=== PATIENT | male | born 1935 | race Caucasian/White ===

== ENCOUNTER 2016-10-02 12:14 | Observation (INO) ==
--- NOTE | 2016-10-02 12:18 | Emergency Department Note ---
Disposition Clinical Impression: Chest pain Disposition: Admitted As Inpatient Condition: Fair General Adult HPI - General Chief complaint: ED Chest Pain Stated complaint: Chest pain Time Seen by Provider: 10/02/16 12:18 - Related Data Home Medications Medication Instructions Recorded Confirmed Albuterol Neb [Proventil Neb] 2.5 mg IH Q4HR PRN 01/27/15 10/02/16 Carvedilol [Coreg] 3.125 mg PO BID 01/27/15 10/02/16 Tiotropium [place] [Spiriva] 18 mcg IH DAILY 01/27/15 10/02/16 Budesonide/Formoterol 160/4.5 2 puff IH BIDR 04/20/15 10/02/16 [Symbicort] Albuterol Sulfate [Albuterol 2 puff IH Q4H PRN 10/02/16 10/02/16 Inhaler] Atorvastatin [Lipitor] 40 mg PO HS 10/02/16 10/02/16 Magnesium Oxide [Magnesium] 500 mg PO DAILY 10/02/16 10/02/16 Tamsulosin [Flomax] 0.8 mg PO HS 10/02/16 10/02/16 Warfarin [Coumadin] 5 mg PO [id number] 10/02/16 10/02/16 Warfarin [Coumadin] 7.5 mg PO MALDONADO 10/02/16 10/02/16 Previous Rx's Medication Instructions Recorded Ranolazine [Ranexa] 500 mg PO BID #60 tab.er.12h 04/06/15 Allergies Allergy/AdvReac Type Severity Reaction Status Date / Time nitroglycerin Allergy Mild Hypotension Verified 09/26/15 13:16 aspirin [ASA] AdvReac Unknown Nose Bleed Verified 10/22/15 04:34 doxycycline AdvReac Redness of Verified 05/15/16 09:22 Skin Past Medical History - Past Medical History Medical history: Reports: arthritis, asthma, coronary artery disease, DVT, hyperlipidemia, myocardial infarction, TIA Surgical history: Reports: cholecystectomy, coronary bypass (CABG), orthopedic, other, pacemaker/AICD Psychiatric history: Reports: no psych history - Social History Smoking Status: Never smoker Smokeless Tobacco Status: No Alcohol use: Reports: none Drug use: Reports: none Course Vital Signs Temperature 98 F 10/02/16 12:15 Pulse Rate 79 10/02/16 12:15 Respiratory Rate 16 10/02/16 12:15 Blood Pressure 139/100 10/02/16 12:15 O2 Sat by Pulse Oximetry 94 10/02/16 12:15 Temperature 97.5 F L 10/03/16 07:23 Pulse Rate 63 10/03/16 07:23 Respiratory Rate 16 10/03/16 07:23 Blood Pressure 133/68 10/03/16 07:23 O2 Sat by Pulse Oximetry 96 10/03/16 07:23 Oxygen Delivery Oxygen Delivery Nasal Cannula Medical Decision Making - Lab Data Result diagrams: 10/03/16 00:39 10/03/16 00:39 Lab Results 10/02/16 10/02/16 10/02/16 Range/Units 12:25 12:25 12:25 WBC 6.2 (4.3-11.1) K/mcL RBC 4.58 (4.19-5.50) M/mcL Hgb 13.0 (12.9-16.9) g/dL Hct 40.7 (37.5-50.1) % MCV 88.9 (83.0-100.0) fL MCH 28.4 (28.0-33.3) pg MCHC 31.9 (31.6-35.5) g/dL RDW 13.4 (11.5-14.5) % Plt Count 184 (140-400) K/mcL MPV 9.0 L (9.4-12.4) fL Immature Gran % 0.2 (0-4) % Seg Neutrophils % 61.8 % Lymphocytes % 18.3 % Monocytes % 12.0 % Eosinophils % 7.2 % Basophils % 0.5 % Neutrophils # 3.9 (1.6-8.9) K/mcL Lymphocytes # 1.1 (0.6-4.6) K/mcL Monocytes # 0.8 (0.0-1.3) K/mcL Eosinophils # 0.5 (0.0-0.6) K/mcL Basophils # 0.0 (0.0-0.2) K/mcL PT 23.8 H (9.4-12.1) Seconds INR 2.2 APTT 42.0 H (26.0-36.0) Seconds Sodium (136-145) mEq/L Potassium (3.5-4.5) mEq/L Chloride (98-109) mEq/L Carbon Dioxide (19-29) mEq/L BUN (8-26) mg/dL Creatinine (0.72-1.25) mg/dL Est GFR ( Amer) (> 60) Est GFR (Non-Af Amer) (> 60) BUN/Creatinine Ratio (6-26) Glucose (70-99) mg/dL Calculated Osmolality (280-300) Calcium (8.6-10.8) mg/dL Troponin I (0-0.03) ng/mL B-Natriuretic Peptide 101 H (0-100) pg/mL 10/02/16 10/02/16 Range/Units 12:25 12:25 WBC (4.3-11.1) K/mcL RBC (4.19-5.50) M/mcL Hgb (12.9-16.9) g/dL Hct (37.5-50.1) % MCV (83.0-100.0) fL MCH (28.0-33.3) pg MCHC (31.6-35.5) g/dL RDW (11.5-14.5) % Plt Count (140-400) K/mcL MPV (9.4-12.4) fL Immature Gran % (0-4) % Seg Neutrophils % % Lymphocytes % % Monocytes % % Eosinophils % % Basophils % % Neutrophils # (1.6-8.9) K/mcL Lymphocytes # (0.6-4.6) K/mcL Monocytes # (0.0-1.3) K/mcL Eosinophils # (0.0-0.6) K/mcL Basophils # (0.0-0.2) K/mcL PT (9.4-12.1) Seconds INR APTT (26.0-36.0) Seconds Sodium 141 (136-145) mEq/L Potassium 4.1 (3.5-4.5) mEq/L Chloride 105 (98-109) mEq/L Carbon Dioxide 25 (19-29) mEq/L BUN 27 H (8-26) mg/dL Creatinine 1.07 (0.72-1.25) mg/dL Est GFR ( Amer) > 60 (> 60) Est GFR (Non-Af Amer) > 60 (> 60) BUN/Creatinine Ratio 25 (6-26) Glucose 106 H (70-99) mg/dL Calculated Osmolality 298 (280-300) Calcium 9.6 (8.6-10.8) mg/dL Troponin I 0.00 (0-0.03) ng/mL B-Natriuretic Peptide (0-100) pg/mL Attestation Statement - Attestation Attestation: I examined this patient and my medical decision-making was reviewed with the BARIATRIC PROGRAM COORDINATOR/PA/Advanced Practice Nurse/Resident Physician. I agree with the documented findings, disposition and treatment plan as described except to the extent set forth below. [id number] time provided She complains of chest discomfort. He has a history of CABG and pacemaker. EKG shows paced rhythm. Patient in no acute distress on exam. He was seen and evaluated in conjunction with the resident physician Dr. Murry
[2016-10-02] MEDS ORDERED: *HR* HYDROmorphone (PF) 1 MG/ML SYRINGE IVP ONE (12:24)
[2016-10-02] MEDS ORDERED: Ondansetron 4 MG/2 ML VIAL IVP ONE (12:25)
--- NOTE | 2016-10-02 12:28 | Emergency Department Note ---
Disposition Clinical Impression: Chest pain Qualifiers: Chest pain type: unspecified Qualified Code(s): R07.9 - Chest pain, unspecified Disposition: Admitted As Inpatient Condition: Fair Referrals: Unassigned,Provider [Non-Partnered Physician] - Forms: ED Satisfaction Letter Time of Disposition: 13:48 Chest Pain HPI - General Chief Complaint: ED Chest Pain Stated Complaint: Chest pain Time Seen by Provider: 10/02/16 12:18 Source: patient Mode of arrival: ambulatory Limitations: no limitations Vital Signs Reviewed: Yes Nursing Notes Reviewed: Yes - History of Present Illness HPI Narrative: 81-year-old COPD, CAD, status post CABG, pacemaker, EF 40% in 07/2016patient presents with chest pain shortness of breath for the last few days. Patient states he currently has 7 out of 10 chest pain. States that he feels assessment chest feels a pressure he has worse pain with deep breath, similar to previous NV. previous caths to RCA and 2 vessel disease. Denies weight loss or weight gain, fevers chills productive cough Pt complaint: chest pain Onset (ago): day(s) Duration: intermittent Onset: during rest Pain Location: substernal Severity: moderate Severity scale (1-10): 7 Quality: tightness, aching Improves with: nothing Worsens with: nothing Associated symptoms: Denies: fever, cough Treatments prior to arrival chest pain: none - Related Data Home Medications Medication Instructions Recorded Confirmed Albuterol Neb [Proventil Neb] 2.5 mg IH Q4HR PRN 01/27/15 10/22/15 Carvedilol [Coreg] 3.125 mg PO BID 01/27/15 10/02/16 Tiotropium [place] [Spiriva] 18 mcg IH DAILY 01/27/15 10/22/15 Albuterol Sulfate 3 ml IH Q4H PRN 04/20/15 10/22/15 Budesonide/Formoterol 160/4.5 2 puff IH BIDR 04/20/15 10/22/15 [Symbicort] Warfarin perPT [Coumadin perPT] 0 mg PO 1800 10/22/15 10/02/16 Previous Rx's Medication Instructions Recorded Ranolazine [Ranexa] 500 mg PO BID #60 tab.er.12h 04/06/15 Albuterol Sulfate [Albuterol 2 puff IH QID 2 Days 09/26/15 Inhaler] Ascorbic Acid [Vitamin C] 500 mg PO DAILY #30 tablet.er 05/17/16 Azithromycin [Zithromax] 250 mg PO DAILY #5 tablet 05/17/16 Allergies Allergy/AdvReac Type Severity Reaction Status Date / Time nitroglycerin Allergy Mild Hypotension Verified 09/26/15 13:16 aspirin [ASA] AdvReac Unknown Nose Bleed Verified 10/22/15 04:34 doxycycline AdvReac Redness of Verified 05/15/16 09:22 Skin All systems ED: reviewed and negative except as stated. Constitutional: Denies: fever, chills Eyes: Denies: eye pain Cardiovascular: Reports: as per HPI, chest pain, dyspnea on exertion. Denies: palpitations, orthopnea Gastrointestinal: Denies: abdominal pain, nausea, vomiting Genitourinary: Denies: urgency, dysuria Musculoskeletal: Denies: back pain, neck pain Chest Pain PMH - Past Medical History Medical history: Reports: arthritis, asthma, coronary artery disease, DVT, hyperlipidemia, myocardial infarction, TIA Surgical history: Reports: cholecystectomy, coronary bypass (CABG), orthopedic, other, pacemaker/AICD Psychiatric history: Reports: no psych history - Social History Smoking Status: Never smoker Alcohol use: Reports: none Drug use: Reports: none Physical Exam Constitutional: alert and oriented, appears uncomfortable Neck: normal inspection, neck is supple, trachea midline Resp: normal chest inspection, CTA bilaterally, no resp distress CV: Paced rhythm with occasional PACs. no m/g/r GI: normal inspection, Soft, NTND, BS present Back: normal inspection, no tenderness to palpation Neuro: A&O3, no gross motor or sensory deficits bilaterally MSK: normal inspection, bilateral UE and LE with normal ROM Skin: No rashes, skin warm, dry, intact - General General appearance: alert, in no apparent distress Course Course Narrative: 81-year-old male with chest pain at rest for the last few days. Patient is a 7 out of 10 chest pain now, he states he has an allergy to aspirin and nitroglycerin makes it his blood pressure bottom out, he appears to be paced with bigeminy and frequent PACs. Give Zofran and Dilaudid for pain, chest pain workup at this time patient is hemodynamically stable, likely admission for chest pain rule out - Reevaluation(s) Reevaluation #1: Admitted to Dr Bella patient stable at time of ed disposiiton. Vital Signs Temperature 98 F 10/02/16 12:15 Pulse Rate 79 10/02/16 12:15 Respiratory Rate 16 10/02/16 12:15 Blood Pressure 139/100 10/02/16 12:15 O2 Sat by Pulse Oximetry 94 10/02/16 12:15 Temperature 98 F 10/02/16 12:15 Pulse Rate 79 10/02/16 12:15 Respiratory Rate 16 10/02/16 12:15 Blood Pressure 139/100 10/02/16 12:15 O2 Sat by Pulse Oximetry 90 10/02/16 13:12 Oxygen Delivery Oxygen Delivery Room Air Chest Pain - MDM Narrative Medical decision making narrative: 81-year-old male with chest pain at rest, admitted to medicine service for chest pain rule out and workup, patient has improvement of his symptoms after Dilaudid, will admit for further observation at this time patient is hemodynamically stable Dr. Bella accepting - Differential Diagnosis Likely: atypical chest pain, st elevation myocardial infraction, chest pain - Medical Records Medical records reviewed: Yes I reviewed the patient's medical records. - Lab Data Lab results reviewed: Yes I reviewed the patient's lab results. Result diagrams: 10/02/16 12:25 10/02/16 12:25 Lab Results 10/02/16 10/02/16 10/02/16 Range/Units 12:25 12:25 12:25 WBC 6.2 (4.3-11.1) K/mcL RBC 4.58 (4.19-5.50) M/mcL Hgb 13.0 (12.9-16.9) g/dL Hct 40.7 (37.5-50.1) % MCV 88.9 (83.0-100.0) fL MCH 28.4 (28.0-33.3) pg MCHC 31.9 (31.6-35.5) g/dL RDW 13.4 (11.5-14.5) % Plt Count 184 (140-400) K/mcL MPV 9.0 L (9.4-12.4) fL Immature Gran % 0.2 (0-4) % Seg Neutrophils % 61.8 % Lymphocytes % 18.3 % Monocytes % 12.0 % Eosinophils % 7.2 % Basophils % 0.5 % Neutrophils # 3.9 (1.6-8.9) K/mcL Lymphocytes # 1.1 (0.6-4.6) K/mcL Monocytes # 0.8 (0.0-1.3) K/mcL Eosinophils # 0.5 (0.0-0.6) K/mcL Basophils # 0.0 (0.0-0.2) K/mcL PT 23.8 H (9.4-12.1) Seconds INR 2.2 APTT 42.0 H (26.0-36.0) Seconds Sodium (136-145) mEq/L Potassium (3.5-4.5) mEq/L Chloride (98-109) mEq/L Carbon Dioxide (19-29) mEq/L BUN (8-26) mg/dL Creatinine (0.72-1.25) mg/dL Est GFR ( Amer) (> 60) Est GFR (Non-Af Amer) (> 60) BUN/Creatinine Ratio (6-26) Glucose (70-99) mg/dL Calculated Osmolality (280-300) Calcium (8.6-10.8) mg/dL Troponin I (0-0.03) ng/mL B-Natriuretic Peptide 101 H (0-100) pg/mL 10/02/16 10/02/16 Range/Units 12:25 12:25 WBC (4.3-11.1) K/mcL RBC (4.19-5.50) M/mcL Hgb (12.9-16.9) g/dL Hct (37.5-50.1) % MCV (83.0-100.0) fL MCH (28.0-33.3) pg MCHC (31.6-35.5) g/dL RDW (11.5-14.5) % Plt Count (140-400) K/mcL MPV (9.4-12.4) fL Immature Gran % (0-4) % Seg Neutrophils % % Lymphocytes % % Monocytes % % Eosinophils % % Basophils % % Neutrophils # (1.6-8.9) K/mcL Lymphocytes # (0.6-4.6) K/mcL Monocytes # (0.0-1.3) K/mcL Eosinophils # (0.0-0.6) K/mcL Basophils # (0.0-0.2) K/mcL PT (9.4-12.1) Seconds INR APTT (26.0-36.0) Seconds Sodium 141 (136-145) mEq/L Potassium 4.1 (3.5-4.5) mEq/L Chloride 105 (98-109) mEq/L Carbon Dioxide 25 (19-29) mEq/L BUN 27 H (8-26) mg/dL Creatinine 1.07 (0.72-1.25) mg/dL Est GFR ( Amer) > 60 (> 60) Est GFR (Non-Af Amer) > 60 (> 60) BUN/Creatinine Ratio 25 (6-26) Glucose 106 H (70-99) mg/dL Calculated Osmolality 298 (280-300) Calcium 9.6 (8.6-10.8) mg/dL Troponin I 0.00 (0-0.03) ng/mL B-Natriuretic Peptide (0-100) pg/mL - Radiology Data Radiology results reviewed: Yes I reviewed the patient's radiology results. Chest X-Ray 10/02/16 12:23 IMPRESSION: No evidence of acute disease. D/ / Jaiden Gar MD / Jaiden Gar MD Interpreting Provider: Jaiden Gar MD - EKG Data EKG attestation: Yes I reviewed and interpreted this EKG. EKG shows normal: sinus rhythm Rate: normal Rhythm: PAC's [place]/QRS: LBBB (Paced rhythm with ventricular rate 78 CO 1305 QRS 194 QTc 477) When compared to previous EKG there are: other (Sgarbossa's 5mm discordant elevation 2 point not criteria) Interpretation: nonspecific ST-T wave changes - Core Measures AMI Core Measures Followed: No Measure Exclusions: contraindicated (allergy) Heart Score - Score History: Moderately Suspicious EKG: Non Specific repolarisation Disturbance Age: Greater than 65 Risk Factors: Equal/Greater than 3 risk factor or history of atherosclerotic disease Troponin: Less than normal limit HEART Score Total: 6
[2016-10-02 12:34] LABS: Basophils % 0.5 %; Eosinophils # 0.5 K/mcL (0.0-0.6); Eosinophils % 7.2 %; Hematocrit 40.7 % (37.5-50.1); Immature Granulocytes % 0.2 % (0-4); Lymphocytes # 1.1 K/mcL (0.6-4.6); Lymphocytes % 18.3 %; Mean Corpuscular HGB Conc 31.9 g/dL (31.6-35.5); Mean Corpuscular Hemoglobin 28.4 pg (28.0-33.3); Mean Corpuscular Volume 88.9 fL (83.0-100.0); Monocytes # 0.8 K/mcL (0.0-1.3); Neutrophils # 3.9 K/mcL (1.6-8.9); Platelet Count 184 K/mcL (140-400); Red Blood Count 4.58 M/mcL (4.19-5.50); Red Cell Distribution Width 13.4 % (11.5-14.5); Segmented Neutrophils % 61.8 %
[2016-10-02 12:39] LABS: INR 2.2; Prothrombin Time 23.8 Seconds (9.4-12.1)
[2016-10-02 12:46] LABS: BUN/Creatinine Ratio 25 (6-26); Blood Urea Nitrogen 27 mg/dL (8-26); Calcium 9.6 mg/dL (8.6-10.8); Carbon Dioxide 25 mEq/L (19-29); Chloride 105 mEq/L (98-109); Glucose 106 mg/dL (70-99); Osmolality,Calculated 298 (280-300); Potassium 4.1 mEq/L (3.5-4.5); Sodium 141 mEq/L (136-145); eGFR For African Americans > 60 (> 60); eGFR For Non-African Americans > 60 (> 60)
[2016-10-02] MEDS ORDERED: Naloxone 0.4 MG/ML INJ IVP PRN (14:43)
[2016-10-02] MEDS ORDERED: Albuterol 2.5 MG/3 ML NEBULIZER IH PRN (15:00)
--- NOTE | 2016-10-02 15:05 | Internal Med History&Physical ---
<Caroline Martin M - Last Filed: 10/02/16 15:01> Date of Encounter: 10/02/16 Time of Encounter: 15:01 Assessment and Plan (1) Chest pain Current visit: Yes Status: Acute Patient reporting exertional chest pain and shortness of breath for the last week. He also reports occasional lightheadedness and dizziness. History of CAD s/p CABG, dual chamber pacemaker. Initial troponin negative at 0.0. EKG shows atrial and ventricular paced rhythm with some PVCs. Atrial pacer seemed to be firing excessively on the monitor. Cardiology consulted, spoke with Dr. Green, who will see patient. 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 Qualifiers: Chest pain type: unspecified Qualified Code(s): R07.9 - Chest pain, unspecified (2) CAD (coronary artery disease) Current visit: No Status: Chronic Patient with CAD s/p CABG. Cardiac Cath 04/20/2015 showed 1 of 2 grafts patent (MACHUCA to LAD listed as patent) with 100% occlusion of RCA. Continue Ranexa and Coreg. Qualifiers: Coronary Disease-Associated Artery/Lesion type: [place] artery [place] vs. transplanted heart: seminole heart Associated angina: angina presence unspecified Qualified Code(s): I25.10 - Atherosclerotic heart disease of [place] coronary artery without angina pectoris (3) Cardiac pacemaker Current visit: No Status: Acute Patient has dual-chamber pacemaker. On monitor, atrial pacer seemed to be firing excessively. Patient due for device interrogation next month. Cardiology consulted, spoke with Dr. Green, who will see patient. (4) COPD (chronic obstructive pulmonary disease) Current visit: No Status: Chronic Patient not complaining of any increased cough or sputum production. CXR shows no evidence of acute disease. Continue home doses of Symbicort, Spiriva and PRN Albuterol. Qualifiers: COPD type: unspecified COPD Qualified Code(s): J44.9 - Chronic obstructive pulmonary disease, unspecified (5) Anticoagulation monitoring by pharmacist Current visit: Yes Status: Acute Patient on Coumadin for history of DVT. INR therapeutic at 2.2. Pharmacy to dose coumadin. (6) DVT prophylaxis Current visit: Yes Status: Acute Up to chair BID anti-embolic stockings Patient on coumadin, additional pharmacologic prophylaxis not indicated. Internal Medicine - H&P: HPI Chief complaint: chest pain and shortness of breath Admitted From: Emergency Dept Plans for Post Hospital Care: Home History of present illness: Mr. Nichols is a 81 year old male with hypertension, hyperlipidemia, coronary artery disease status post CABG, COPD, cardiomyopathy with dual-chamber pacemaker presented to the emergency department with chest pain and shortness of breath on exertion for the last 1 week. He reports he occasionally gets lightheaded as well. Reports he staggers at times due to his lightheadedness. He wears oxygen at home at night and has needed and reports he felt he needs his oxygen more frequently. He reports some chronic nausea, problems with double vision recently. He denies any headache, upper respiratory symptoms, cough, or fever. He reported having sweats and chills. Evaluation in the emergency department included a chest x-ray which showed no evidence of acute disease. EKG which showed paced rhythm and left bundle branch block. BNP was slightly elevated at 101, troponin was negative at 0.0. INR is therapeutic at 2.2. On exam, patient is alert and oriented, in no acute distress. Lungs are clear bilaterally to auscultation heart has regular rate and rhythm. No lower extremity edema. Past Med Surg Social Fam HX - Past Medical History Medical history: arthritis, asthma, coronary artery disease, DVT, hyperlipidemia , myocardial infarction, TIA Psychiatric history: no psych history - Past Surgical History Surgical History: cholecystectomy, coronary bypass (CABG), orthopedic, other, pacemaker/AICD - Social History Smoking Status: Never smoker Smokeless Tobacco Status: No Alcohol use: none Drug use: none - Family History Daughter Adopted: No Family Member Ethnicity: Non- Living Status: Still Living Hx Family Cardiac Disorders: Yes (HYPERTENTION) Mother Living Status: Father Living Status: Hx Family Cardiac Disorders: Yes Internal Medicine - H&P: Meds Albuterol Neb [Proventil Neb] 2.5 mg IH Q4HR PRN 01/27/15 [History] Carvedilol [Coreg] 3.125 mg PO BID 01/27/15 [History] Tiotropium [place] [Spiriva] 18 mcg IH DAILY 01/27/15 [History] Ranolazine [Ranexa] 500 mg PO BID #60 tab.er.12h 04/06/15 [Rx] Budesonide/Formoterol 160/4.5 [Symbicort] 2 puff IH BIDR 04/20/15 [History] Albuterol Sulfate [Albuterol Inhaler] 2 puff IH Q4H PRN 10/02/16 [History] Atorvastatin [Lipitor] 40 mg PO HS 10/02/16 [History] Magnesium Oxide [Magnesium] 500 mg PO DAILY 10/02/16 [History] Tamsulosin [Flomax] 0.8 mg PO HS 10/02/16 [History] Warfarin [Coumadin] 5 mg PO MOTUWETHFRSA 10/02/16 [History] Warfarin [Coumadin] 7.5 mg PO MALDONADO 10/02/16 [History] Allergies nitroglycerin Allergy (Mild, Verified 09/26/15 13:16) Hypotension aspirin [ASA] Adverse Reaction (Unknown, Verified 10/22/15 04:34) Nose Bleed UNABLE TO TAKE R/T CURRENTLY ON PLAVIX AND UNKNOWN AMT OF COUMADIN doxycycline Adverse Reaction (Verified 05/15/16 09:22) Redness of Skin All Systems PM: A 10-system review of systems was performed and is negative for pertinent findings except as documented above in the HPI. - Constitutional Constitutional: chills, fatigue, night sweats, no fever(s) - EENT Eyes: diplopia, no change in vision, no discharge, no pain, no photophobia Ears: no ear discharge, no ear pain, no tinnitus Nose, mouth and throat: no dysphagia, no nasal discharge, no neck pain, no sore throat - Cardiovascular Cardiovascular ROS IM: chest pain, dyspnea, dyspnea on exertion, lightheadedness , no diaphoresis, no palpitations, no syncope - Respiratory Respiratory: dyspnea, dyspnea on exertion, no cough, no wheezing, no excessive phlegm production - Gastrointestinal Gastrointestinal: nausea, no abdominal pain, no diarrhea, no hematemesis, no hematochezia, no melena, no vomiting - Musculoskeletal Musculoskeletal ROS IM: no numbness, no tingling - Integumentary Integumentary IM: no rash, no unusual bruising - Neurological Neurological ROS: numbness (chronic on and off in bilateral hands), tingling ( chronic on and off in bilateral hands), no confusion, no convulsions, no focal weakness, no tremor(s) - Hematologic/Lymphatic Hematologic/Lymphatic: no easy bruising - Constitutional Vitals: Temp Pulse Resp BP Pulse Ox 98 F 59 16 138/82 96 10/02/16 12:15 10/02/16 15:00 10/02/16 15:00 10/02/16 15:00 10/02/16 15:00 General appearance: Present: A&O X 3, pleasant, no acute distress - Head Head exam: Present: atraumatic, normocephalic - Eye Eye exam: Present: PERRL, conjuntiva pink, sclera anicteric Pupils: Present: PERRL - Neck Neck exam general surgery: Present: supple, trachea midline. Absent: lymphadenopathy - Respiratory Respiratory exam: Present: CTAB. Absent: accessory muscle use, rales, rhonchi, wheezes - Cardiovascular Cardiovascular exam: Present: RRR, +S1, +S2. Absent: diastolic murmur, gallop, rubs, systolic murmur - GI/Abdominal GI/Abdominal exam: Present: normal bowel sounds, soft, no peritoneal signs. Absent: distended, tenderness - Extremities Exam Extremities exam: Present: warm, radial pulses palpable and symetrical. Absent : calf tenderness, cyanotic, pedal edema - Neurological Exam Neurological exam: Present: CN II-XII intact, oriented X3, no focal deficits. Absent: facial droop, speech deficit - Skin Skin exam: Present: dry, intact Internal Med - H&P Results - Labs CBC & Chem 7: 10/02/16 12:25 10/02/16 12:25 Labs: All Lab Results (24 Hours) 10/02/16 10/02/16 10/02/16 Range/Units 12:25 12:25 12:25 WBC 6.2 (4.3-11.1) K/mcL RBC 4.58 (4.19-5.50) M/mcL Hgb 13.0 (12.9-16.9) g/dL Hct 40.7 (37.5-50.1) % MCV 88.9 (83.0-100.0) fL MCH 28.4 (28.0-33.3) pg MCHC 31.9 (31.6-35.5) g/dL RDW 13.4 (11.5-14.5) % Plt Count 184 (140-400) K/mcL MPV 9.0 L (9.4-12.4) fL Immature Gran % 0.2 (0-4) % Seg Neutrophils % 61.8 % Lymphocytes % 18.3 % Monocytes % 12.0 % Eosinophils % 7.2 % Basophils % 0.5 % Neutrophils # 3.9 (1.6-8.9) K/mcL Lymphocytes # 1.1 (0.6-4.6) K/mcL Monocytes # 0.8 (0.0-1.3) K/mcL Eosinophils # 0.5 (0.0-0.6) K/mcL Basophils # 0.0 (0.0-0.2) K/mcL PT 23.8 H (9.4-12.1) Seconds INR 2.2 APTT 42.0 H (26.0-36.0) Seconds Sodium (136-145) mEq/L Potassium (3.5-4.5) mEq/L Chloride (98-109) mEq/L Carbon Dioxide (19-29) mEq/L BUN (8-26) mg/dL Creatinine (0.72-1.25) mg/dL Est GFR ( Amer) (> 60) Est GFR (Non-Af Amer) (> 60) BUN/Creatinine Ratio (6-26) Glucose (70-99) mg/dL Calculated Osmolality (280-300) Calcium (8.6-10.8) mg/dL Troponin I (0-0.03) ng/mL B-Natriuretic Peptide 101 H (0-100) pg/mL 17 10/02/16 Range/Units 12:25 12:25 WBC (4.3-11.1) K/mcL RBC (4.19-5.50) M/mcL Hgb (12.9-16.9) g/dL Hct (37.5-50.1) % MCV (83.0-100.0) fL MCH (28.0-33.3) pg MCHC (31.6-35.5) g/dL RDW (11.5-14.5) % Plt Count (140-400) K/mcL MPV (9.4-12.4) fL Immature Gran % (0-4) % Seg Neutrophils % % Lymphocytes % % Monocytes % % Eosinophils % % Basophils % % Neutrophils # (1.6-8.9) K/mcL Lymphocytes # (0.6-4.6) K/mcL Monocytes # (0.0-1.3) K/mcL Eosinophils # (0.0-0.6) K/mcL Basophils # (0.0-0.2) K/mcL PT (9.4-12.1) Seconds INR APTT (26.0-36.0) Seconds Sodium 141 (136-145) mEq/L Potassium 4.1 (3.5-4.5) mEq/L Chloride 105 (98-109) mEq/L Carbon Dioxide 25 (19-29) mEq/L BUN 27 H (8-26) mg/dL Creatinine 1.07 (0.72-1.25) mg/dL Est GFR ( Amer) > 60 (> 60) Est GFR (Non-Af Amer) > 60 (> 60) BUN/Creatinine Ratio 25 (6-26) Glucose 106 H (70-99) mg/dL Calculated Osmolality 298 (280-300) Calcium 9.6 (8.6-10.8) mg/dL Troponin I 0.00 (0-0.03) ng/mL B-Natriuretic Peptide (0-100) pg/mL - Diagnostic Studies Chest x-ray Additional comments: Chest X-Ray 10/02/16 12:23 IMPRESSION: No evidence of acute disease. D/ / Jaiden Gar MD / Jaiden Gar MD Interpreting Provider: Jaiden Gar MD <Suhas Bella T - Last Filed: 10/02/16 17:40> Date of Encounter: 10/02/16 Internal Medicine - H&P: HPI History of present illness: Mr. Nichols is a 81 year old male All Systems PM: A 10-system review of systems was performed and is negative for pertinent findings except as documented above in the HPI. - Constitutional Vitals: Temp Pulse Resp BP Pulse Ox 97.6 F 61 12 122/75 98 10/02/16 15:24 10/02/16 15:24 10/02/16 15:24 10/02/16 15:24 10/02/16 15:24 Internal Med - H&P Results - Labs CBC & Chem 7: 04/09/17 12:25 10/02/16 12:25 - Attending Attestation I examined this patient and my medical decision-making was reviewed with the CHANNEL MANAGER/PA/Advanced Practice Nurse/Resident Physician. I agree with the documented findings, disposition and treatment plan as described except to the extent set forth below. Seen at bedside with family, hx of CHFrEF, s/p PCM, CAD s/p PCM. Negative stress test and LHC with patent 1 out of 2 grafts. Patient reporting exertional chest pain and shortness of breath for the last week associated with dizziness and lightheadedness. Initial troponin negative at 0.0. EKG shows atrial and ventricular paced rhythm with some PVCs. INR is therapeutic Agree with cycling troponins, recent ECHO in 07/2016, will not repeat, consult cardiology, and resume home meds Rest of details as in MARKETING SALES SUPERVISOR Marybeth documentation, which I agree with
[2016-10-02] MEDS ORDERED: Warfarin perPT PO PRN (18:00)
[2016-10-02] MEDS ORDERED: *HR* Warfarin 2.5 MG TABLET PO ONE (18:00)
[2016-10-02] MEDS ORDERED: *HR* Warfarin 5 MG TABLET PO SCH (18:00)
[2016-10-02] MEDS: Budesonide/Formoterol 160/4.5 MDI IH SCH (19:51)
[2016-10-02] MEDS ORDERED: Ranolazine 500 MG TAB.ER.12H PO SCH (21:00)
[2016-10-02] MEDS: *HR* Morphine 2 MG/ML SYRINGE IVP PRN (22:35)
[2016-10-03 00:59] LABS: Basophils % 0.6 %; Eosinophils # 0.4 K/mcL (0.0-0.6); Eosinophils % 8.7 %; Hematocrit 36.5 % (37.5-50.1); Hemoglobin 11.5 g/dL (12.9-16.9); Immature Granulocytes % 0.4 % (0-4); Lymphocytes # 1.1 K/mcL (0.6-4.6); Lymphocytes % 21.8 %; Mean Corpuscular HGB Conc 31.5 g/dL (31.6-35.5); Mean Corpuscular Hemoglobin 28.5 pg (28.0-33.3); Mean Corpuscular Volume 90.3 fL (83.0-100.0); Mean Platelet Volume 9.2 fL (9.4-12.4); Monocytes # 0.7 K/mcL (0.0-1.3); Monocytes % 13.9 %; Neutrophils # 2.6 K/mcL (1.6-8.9); Platelet Count 165 K/mcL (140-400); Red Blood Count 4.04 M/mcL (4.19-5.50); Red Cell Distribution Width 13.3 % (11.5-14.5); Segmented Neutrophils % 54.6 %
[2016-10-03 01:01] LABS: INR 2.3; Prothrombin Time 25.7 Seconds (9.4-12.1)
[2016-10-03 01:08] LABS: BUN/Creatinine Ratio 26 (6-26); Blood Urea Nitrogen 30 mg/dL (8-26); Calcium 8.8 mg/dL (8.6-10.8); Carbon Dioxide 30 mEq/L (19-29); Chloride 104 mEq/L (98-109); Glucose 122 mg/dL (70-99); Osmolality,Calculated 301 (280-300); Potassium 4.1 mEq/L (3.5-4.5); Sodium 142 mEq/L (136-145); eGFR For African Americans > 60 (> 60); eGFR For Non-African Americans 60 (> 60)
[2016-10-03] MEDS: *HR* Morphine 2 MG/ML SYRINGE IVP PRN (07:40)
--- NOTE | 2016-10-03 09:42 | Cardiology Consult Note ---
Date of Encounter: 10/03/16 Time of Encounter: 09:41 Assessment and Plan (1) Chest pain Current Visit: Yes Status: Acute Echo on 08/05/16 shows LVEF of 40% and normal RV function Cath on 04/20/15 shows 1 of 2 patent bypass grafts (Patent MACHUCA to LAD), 100% occluded mid RCA. Troponin 0.00, 0.01, 0.00. BNP of 101, mildly elevated from baseline. No rales on ausculatation, CXR is clear, no LE edema of JVD. Recommend obtaining limited echocardiogram to assess function Recommend medical managaement of CAD Recommend starting plavix as he is not on a current anti-platelet agent. Recommend increasing Ranexa to 1000 BID Qualifiers: Chest pain type: unspecified Qualified Code(s): R07.9 - Chest pain, unspecified (2) Cardiac pacemaker Current Visit: No Status: Acute EKG demonstrates dual chamber pacermaker. Will consider interrogation of device Discussion w patient/family: The assessment and plan as outlined above was discussed with the patient and/or family members who expressed understanding and agreement. All questions were answered. Thank you for involving us in the care of your patient. Please call with any questions. History of Present Illness Consult date: 10/03/16 Consult reason: Chest pain/dyspnea with pacemaker problem Chief complaint: Chest pain History of present illness: Mr. Nichols is a 81 year old male who presented to the ER on 10/02/16 due to 1 week of chest pain and dyspnea on exertion. He reports was getting progressive dyspnea and is no longer able to walk to his mailbox without significant SIERRA. Denies cough. Chest pain is substernal. Occasional symptoms of pre-syncope associated with chest discomfort. The pain lasts a few minutes and goes away on its own. Does not take nitro. Hx of prior CABG with most recent Cath on . This showed 1 of 2 patent bypass grafts. Graft fro MACHUCA to LAD is patent. Mid RCA is 100% occluded. Has had at least 1 instance of CP while here in the hospital. Initial troponin and follow up troponins negative. He currently has no symptoms which he attributes to being on oxygen. He does wear oxygen at home but only at night. Past Med Surg Social Fam HX - Past Medical History Medical history: arthritis, asthma, coronary artery disease, DVT, hyperlipidemia , myocardial infarction, TIA Psychiatric history: no psych history - Past Surgical History Surgical History: cholecystectomy, coronary bypass (CABG), orthopedic, other, pacemaker/AICD - Social History Smoking Status: Never smoker Smokeless Tobacco Status: No Alcohol use: none Drug use: none - Family History Mother Living Status: Father Living Status: Hx Family Cardiac Disorders: Yes Daughter Adopted: No Family Member Ethnicity: Non- Living Status: Still Living Hx Family Cardiac Disorders: Yes (HYPERTENTION) Medications and Allergies Albuterol Neb [Proventil Neb] 2.5 mg IH Q4HR PRN 01/27/15 [History] Carvedilol [Coreg] 3.125 mg PO BID 01/27/15 [History] Tiotropium [place] [Spiriva] 18 mcg IH DAILY 01/27/15 [History] Ranolazine [Ranexa] 500 mg PO BID #60 tab.er.12h 04/06/15 [Rx] Budesonide/Formoterol 160/4.5 [Symbicort] 2 puff IH BIDR 04/20/15 [History] Albuterol Sulfate [Albuterol Inhaler] 2 puff IH Q4H PRN 10/02/16 [History] Atorvastatin [Lipitor] 40 mg PO HS 10/02/16 [History] Magnesium Oxide [Magnesium] 500 mg PO DAILY 10/02/16 [History] Tamsulosin [Flomax] 0.8 mg PO HS 10/02/16 [History] Warfarin [Coumadin] 5 mg PO MOTUWETHFRSA 10/02/16 [History] Warfarin [Coumadin] 7.5 mg PO MALDONADO 10/02/16 [History] Allergies nitroglycerin Allergy (Mild, Verified 09/26/15 13:16) Hypotension aspirin [ASA] Adverse Reaction (Unknown, Verified 10/22/15 04:34) Nose Bleed UNABLE TO TAKE R/T CURRENTLY ON PLAVIX AND UNKNOWN AMT OF COUMADIN doxycycline Adverse Reaction (Verified 05/15/16 09:22) Redness of Skin All Systems Review: A 10-system review of systems was performed and is negative for pertinent findings except as documented above in the HPI. - Constitutional Constitutional: fatigue, no anorexia, no fever(s) - EENT Eyes: other (Vision starts to go black with episodes of pre-syncope) Nose, mouth and throat: no epistaxis, no sore throat - Cardiovascular Cardiovascular: as per HPI, chest pain with exertion, dyspnea on exertion, lightheadedness, no claudication, no radiating jaw, neck or arm pain, no leg edema, no syncope - Respiratory Respiratory: dyspnea, no cough - Gastrointestinal Gastrointestinal: no abdominal pain, no diarrhea - Musculoskeletal Musculoskeletal: no myalgias - Integumentary Integumentary: no erythema - Psychiatric Psychiatric: no panic attacks Physical Examination Vital Signs, Last 4 Hours Temp Pulse Resp BP Pulse Ox 10/03/16 07:23 97.5 F L 63 16 133/68 96 General: Conversant, No Apparent Distress HEENT: Atraumatic, Mucus Membranes Moist Neck: No JVD Cardiac: Reg Rate and Rhythm, Normal S1 and S2, No Murmur Lungs: Normal Breath Sounds, No Wheeze, Rales, Rhonchi Neuro: Alert and responsive, No focal deficits noted Abdomen: Soft, Non-Tender Skin: No rashes noted on visualized skin Musculoskeletal: No Chest Wall Tenderness Extremities: No Cyanosis, No Edema, Normal Pulses Results 10/03/16 00:39 10/03/16 00:39 Lab Results 10/02/16 10/03/16 10/03/16 18:32 00:39 00:39 WBC 4.8 Hgb 11.5 L D Hct 36.5 L Plt Count 165 INR APTT Sodium Potassium Chloride Carbon Dioxide BUN Creatinine Glucose Calcium Troponin I 0.01 0.00 10/03/16 10/03/16 00:39 00:39 WBC Hgb Hct Plt Count INR 2.3 APTT 42.0 H Sodium 142 Potassium 4.1 Chloride 104 Carbon Dioxide 30 H BUN 30 H Creatinine 1.17 Glucose 122 H Calcium 8.8 Troponin I Consult Discharge Plan - Plan Referrals: Ray Corrigan MD [Primary Care Provider] -
[2016-10-03] MEDS: Tiotropium 18 MCG inhalation IH SCH (10:50)
[2016-10-03] MEDS: Budesonide/Formoterol 160/4.5 MDI IH SCH ×2 (10:52→20:30)
[2016-10-03] MEDS: Ranolazine 500 MG TAB.ER.12H PO SCH ×2 (12:47→20:54)
--- NOTE | 2016-10-03 13:06 | Internal Med Progress Note ---
Date of Encounter: 10/03/16 Time of Encounter: 13:03 - Assessment and plan (1) Chronic respiratory failure with hypoxia Current Visit: Yes Status: Chronic Assessment and plan: Stable on home O2 (2) COPD (chronic obstructive pulmonary disease) Current Visit: Yes Status: Chronic Assessment and plan: Not in exacerbation, continue home meds and duonebs prn Qualifiers: COPD type: unspecified COPD Qualified Code(s): J44.9 - Chronic obstructive pulmonary disease, unspecified (3) CAD (coronary artery disease) Current Visit: Yes Status: Chronic Assessment and plan: Echo on 08/05/16 shows LVEF of 40% and normal RV function Cath on 04/20/15 shows 1 of 2 patent bypass grafts (Patent MACHUCA to LAD), 100% occluded mid RCA. Troponin 0.00, 0.01, 0.00. Plavix added by cardiology Increased renexa Continue management patient's chest pain is possibly musculoskeletal Awaiting ECHO Continue other management Qualifiers: Coronary Disease-Associated Artery/Lesion type: [place] artery [place] vs. transplanted heart: [place] heart Associated angina: angina presence unspecified Qualified Code(s): I25.10 - Atherosclerotic heart disease of [place] coronary artery without angina pectoris (4) Pacemaker-dependent due to [place] cardiac rhythm insufficient to support life Current Visit: Yes Status: Chronic Assessment and plan: For device interrogation (5) Chest pain Current Visit: Yes Status: Acute Assessment and plan: As above Qualifiers: Chest pain type: unspecified Qualified Code(s): R07.9 - Chest pain, unspecified - Subjective Interval history: Seen at bedside with family He has no new complains He has been evaluated by cardiology and awaiting device interrogation He is still complaining of tenderness at the site of the PCM - Constitutional Vitals: Temp Pulse Resp BP Pulse Ox 97.3 F L 61 16 115/74 97 10/03/16 11:04 10/03/16 11:04 10/03/16 11:04 10/03/16 11:04 10/03/16 11:04 General appearance: Present: A&O X 3, pleasant, no acute distress - Head Head exam: Present: atraumatic, normocephalic - Eye Eye exam: Present: PERRL, conjuntiva pink, sclera anicteric Pupils: Present: PERRL - Neck Neck exam general surgery: Present: supple, trachea midline. Absent: lymphadenopathy - Respiratory Respiratory exam: Present: CTAB. Absent: accessory muscle use, rales, rhonchi, wheezes - Cardiovascular Cardiovascular exam: Present: RRR, +S1, +S2. Absent: diastolic murmur, gallop, rubs, systolic murmur - GI/Abdominal GI/Abdominal exam: Present: normal bowel sounds, soft, no peritoneal signs. Absent: distended, tenderness - Extremities Exam Extremities exam: Present: warm, radial pulses palpable and symetrical. Absent : calf tenderness, cyanotic, pedal edema - Neurological Exam Neurological exam: Present: alert, CN II-XII intact, oriented X3, no focal deficits. Absent: pronater drift, facial droop, speech deficit - Skin Skin exam: Present: dry, intact Internal Medicine: Result - Labs CBC & Chem 7: 10/03/16 00:39 10/03/16 00:39 Labs: Short CBC 10/03/16 Range/Units 00:39 WBC 4.8 (4.3-11.1) K/mcL Hgb 11.5 L D (12.9-16.9) g/dL Hct 36.5 L (37.5-50.1) % Plt Count 165 (140-400) K/mcL Neutrophils # 2.6 (1.6-8.9) K/mcL BMP 10/03/16 00:39 Sodium 142 Potassium 4.1 Chloride 104 Carbon Dioxide 30 H BUN 30 H Creatinine 1.17 Glucose 122 H Calcium 8.8 Cardiac Enzymes 10/02/16 10/03/16 Range/Units 18:32 00:39 Troponin I 0.01 0.00 (0-0.03) ng/mL - ABG Interpretation ABG results: PT/INR, D-dimer PT 25.7 Seconds (9.4-12.1) H 10/03/16 00:39 Consult Discharge Plan - Plan Referrals: Ray Corrigan MD [Primary Care Provider] -
[2016-10-03] MEDS ORDERED: Acetaminophen 325 MG TABLET PO ONE (15:32)
--- NOTE | 2016-10-03 17:48 | Electrocardiograph Report ---
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
[2016-10-03] MEDS ORDERED: *HR* Warfarin 5 MG TABLET PO SCH (18:00)
--- NOTE | 2016-10-03 18:52 | Electrocardiograph Report ---
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
[2016-10-03] MEDS ORDERED: Perflutren Lipid Microsphere 2 ML VIAL ONE (20:24)
[2016-10-03] MEDS: Perflutren Lipid Microsphere 1.3 ML in 0.9 % Sodium Chloride 8.7 ML IVP ONE ×2 (20:55→20:58)
[2016-10-03] MEDS ORDERED: Ranolazine 500 MG TAB.ER.12H PO SCH (21:00)
[2016-10-04] MEDS: Acetaminophen 325 MG TABLET PO PRN ×2 (00:46→09:08)
[2016-10-04 05:47] LABS: INR 2.1; Prothrombin Time 23.7 Seconds (9.4-12.1)
[2016-10-04] MEDS: Tiotropium 18 MCG inhalation IH SCH (07:39)
[2016-10-04] MEDS: Budesonide/Formoterol 160/4.5 MDI IH SCH (07:40)
[2016-10-04] MEDS: Ranolazine 500 MG TAB.ER.12H PO SCH (08:09)
--- NOTE | 2016-10-04 09:40 | ECHO - Doppler Report ---
Limited Echo with Imaging Enhancement Agent Name: Randy Nichols Date of Study: 10/03/2016 Date: 1935 Ht: 65.0 in Medical Record#: [id number] Age: 81 Wt: 193.0 lb Gender: Male BSA: 1.95 Order #: [id number] Location: [facility] Room #: 3B47 Reading Physician: Manuela Lorenzana DO Room Service Associate: Kelsie Delaney Ordering Physician: Vijay Leong DO Primary Physician: Ray Corrigan MD Indications: Assess function, Chest pain, Dyspnea Impressions: LVEF 40-45%. There is reduced LV systolic function with regional variations. Left Ventricular Wall Motion: Rest Echo Findings The apex, apical inferior, mid inferior, apical septal, mid inferior septal, basal inferior septal, mid inferior lateral and basal inferior lateral stauffer were hypokinetic. All other wall segments showed normal motion. Findings: Study Quality * Technically adequate exam. ECG Findings * NSR with BBB. Left Ventricle * Atypical septal motion consistent with BBB. * Definity echo contrast was used. * There is no LV thrombus. * LVEF 40-45%. Aorta * Normally sized aortic root. Right Ventricle * RV is not well evaluated on this study. History Hypercholesteremia Family History of CAD History of CAD/PTCA Myocardial Infarction Coronary Artery Bypass Graft Pacer/ICD Implant 08/05/2016 a Previous Echo was performed. Contrast: Definity 1.3 ml in 8.7 ml of saline 2 ml. Measurements: BP: 107/ 63 2D Normal Values RVIDd: 3.20 cm <2.7 cm IVSd: 1.20 cm 0.6 - 1.0 cm LVIDd: 5.10 cm 3.7 - 5.6 cm LVPWd: 1.20 cm 0.6 - 1.1 cm LVIDs: 3.65 cm 1.5 - 3.6 cm AO: 3.10 cm < 4.0 cm LA: 3.60 cm 2.0 - 4.0cm %FS: 31.50 cm >25 % LA volume: 55 Updated by Manuela Lorenzana on 10/04/2016 9:35:43 AM electronically signed on 10/04/2016 9:37:03 AM with status of Final Wall Motion Skinner: 1=Normal, 2=Hypokinesis, 3=Akinesis, 4=Dyskinesis, 5=Aneurysmal, 6=Hyperkinetic, X=Not Visualized (Blank)=Missing
[2016-10-04 12:25] VITALS: BP 118/58
--- NOTE | 2016-10-04 14:23 | Cardiology Progress Note ---
Date of Encounter: 10/04/16 Time of Encounter: 14:21 Assessment and Plan (1) Chest pain Current Visit: Yes Status: Acute Echo on 08/05/16 shows LVEF of 40% and normal RV function Cath on 04/20/15 shows 1 of 2 patent bypass grafts (Patent MACHUCA to LAD), 100% occluded mid RCA. Troponin 0.00, 0.01, 0.00. BNP of 101, mildly elevated from baseline. No rales on ausculatation, CXR is clear, no LE edema of JVD. Recommend obtaining limited echocardiogram to assess function Recommend medical managaement of CAD Recommend starting plavix as he is not on a current anti-platelet agent. Recommend increasing Ranexa to 1000 BID Recommend replacing Coreg with metoprolol 50 BID Cardiology is signing off Qualifiers: Chest pain type: unspecified Qualified Code(s): R07.9 - Chest pain, unspecified (2) Cardiac pacemaker Current Visit: No Status: Acute EKG demonstrates dual chamber pacemaker. Pacemaker interrogation reveals pacemaker working appropriately Discussion w patient/family: The assessment and plan as outlined above was discussed with the patient and/or family members who expressed understanding and agreement. All questions were answered. Thank you for involving us in the care of your patient. Please call with any questions. Subjective Interval history: Cardiology signed off. No new symptoms overnight. Patient requested to see cardiology for answering of questions on medications, follow up, and results. Objective Vital Signs, Last 4 Hours Temp Pulse Resp BP Pulse Ox 10/04/16 12:12 98.0 F 85 14 118/58 94 General: Conversant HEENT: Atraumatic Neck: No JVD Cardiac: Reg Rate and Rhythm, Normal S1 and S2 Lungs: Normal Breath Sounds Neuro: Alert and responsive Abdomen: Soft Skin: No rashes noted on visualized skin Musculoskeletal: No Chest Wall Tenderness Extremities: No Cyanosis Results 10/03/16 00:39 10/03/16 00:39 Lab Results 10/04/16 04:37 INR 2.1 Consult Discharge Plan - Plan Referrals: Ray Corrigan MD [Primary Care Provider] -
--- NOTE | 2016-10-04 15:41 | Discharge Summary ---
Date of Encounter: 10/04/16 Time of Encounter: 15:00 - Discharge Diagnosis (1) Chest pain Priority: Primary Status: Acute Qualifiers: Chest pain type: unspecified Qualified Code(s): R07.9 - Chest pain, unspecified (2) CAD (coronary artery disease) Priority: Primary Status: Chronic Qualifiers: Coronary Disease-Associated Artery/Lesion type: [place] artery [place] vs. transplanted heart: [place] heart Associated angina: angina presence unspecified Qualified Code(s): I25.10 - Atherosclerotic heart disease of [place] coronary artery without angina pectoris (3) COPD (chronic obstructive pulmonary disease) Priority: Secondary Status: Chronic Qualifiers: COPD type: unspecified COPD Qualified Code(s): J44.9 - Chronic obstructive pulmonary disease, unspecified (4) Hx of CABG Priority: Secondary Status: Chronic (5) Cardiac pacemaker Priority: Secondary Status: Acute (6) Anticoagulation monitoring by pharmacist Priority: Secondary Status: Acute (7) DVT prophylaxis Priority: Secondary Status: Acute - Discharge Medications Prescriptions: Clopidogrel [Plavix] 75 mg PO DAILY #30 tablet Metoprolol [Lopressor] 50 mg PO BID #60 tablet Ranolazine [Ranexa] 1,000 mg PO BID #120 tab.er.12h Home Medications: Albuterol Neb [Proventil Neb] 2.5 mg IH Q4HR PRN 01/27/15 [History] Tiotropium [place] [Spiriva] 18 mcg IH DAILY 01/27/15 [History] Budesonide/Formoterol 160/4.5 [Symbicort] 2 puff IH BIDR 04/20/15 [History] Albuterol Sulfate [Albuterol Inhaler] 2 puff IH Q4H PRN 10/02/16 [History] Atorvastatin [Lipitor] 40 mg PO HS 10/02/16 [History] Magnesium Oxide [Magnesium] 500 mg PO DAILY 10/02/16 [History] Tamsulosin [Flomax] 0.8 mg PO HS 10/02/16 [History] Warfarin [Coumadin] 5 mg PO MOTUWETHFRSA 10/02/16 [History] Warfarin [Coumadin] 7.5 mg PO MALDONADO 10/02/16 [History] Clopidogrel [Plavix] 75 mg PO DAILY #30 tablet 10/04/16 [Rx] Metoprolol [Lopressor] 50 mg PO BID #60 tablet 10/04/16 [Rx] Ranolazine [Ranexa] 1,000 mg PO BID #120 tab.er.12h 10/04/16 [Rx] Allergies/Adverse Reactions: Allergies nitroglycerin Allergy (Mild, Verified 09/26/15 13:16) Hypotension aspirin [ASA] Adverse Reaction (Unknown, Verified 10/22/15 04:34) Nose Bleed UNABLE TO TAKE R/T CURRENTLY ON PLAVIX AND UNKNOWN AMT OF COUMADIN doxycycline Adverse Reaction (Verified 05/15/16 09:22) Redness of Skin Procedures/tests Complete & Pending: Procedures Performed prior 72 hours Category Date Time Status ECG 12 lead ECG [ECG] Routine Y 10/03/16 08:49 Completed EV limited echo w enhance Routine Y 10/03/16 10:22 Completed - Notes to Outpatient Provider Home medication has been changed per cardiology: Switch carvedilol to metoprolol 50 mg twice a day, increase Ranexa to 1000 mg twice a day, add Plavix 75 mg daily. Date of admission: 10/02/16 14:55 Primary care physician: Ray Corrigan MD Discharging clinician: Ben Kruse Anticipated date of discharge: 10/04/16 - Patient Status Disposition: Home, Self-Care Condition: Fair Overall status at discharge: patient is progressing back to baseline - Discharge Instructions Follow Up With: Ray Corrigan MD [Primary Care Provider] - - Diet and Activity Activity: increase activity as tolerated Diet: low salt diet Interval History: Mr. Nichols is a 81 year old male with hypertension, hyperlipidemia, coronary artery disease status post CABG, COPD, cardiomyopathy with dual-chamber pacemaker presented to the emergency department with chest pain and shortness of breath on exertion for the last 1 week. He reports he occasionally gets lightheaded as well. Reports he staggers at times due to his lightheadedness. He wears oxygen at home at night and has needed and reports he felt he needs his oxygen more frequently. He reports some chronic nausea, problems with double vision recently. He denies any headache, upper respiratory symptoms, cough, or fever. He reported having sweats and chills. Evaluation in the emergency department included a chest x-ray which showed no evidence of acute disease. EKG which showed paced rhythm and left bundle branch block. BNP was slightly elevated at 101, troponin was negative at 0.0. INR is therapeutic at 2.2. On exam, patient is alert and oriented, in no acute distress. Lungs are clear bilaterally to auscultation heart has regular rate and rhythm. No lower extremity edema. Hospital course: Mr. Nichols is a 81 year old male admitted for chest pain. Pain is intermittent, sharp, lasts for several seconds. Cardiology consult was called. Medication has been adjusted by cardiology. Cardiology recommended medical management, no further procedure. Pacemaker has been checked by cardiology and was found at work appropriately. 3 sets of troponin are negative. Patient was seen and examined. He denies further chest pain. No shortness of breath. Vital signs stable. Oxygen saturation 94% on 2 L nasal cannula. Patient has history of COPD and has home oxygen already. We will discharge patient home and follow up with cardiology as outpatient. - Time Spent with Patient Total time spent providing and/or coordinating discharge services: 40 minutes Greater than 30 minutes - Constitutional Vitals: Temp Pulse Resp BP Pulse Ox 98.0 F 85 14 118/58 94 10/04/16 12:12 10/04/16 12:12 10/04/16 12:12 10/04/16 12:12 10/04/16 12:12 General appearance: Present: A&O X 3, pleasant, no acute distress - Head Head exam: Present: atraumatic, normocephalic - Eye Eye exam: Present: PERRL, conjuntiva pink, sclera anicteric Pupils: Present: PERRL - Neck Neck exam general surgery: Present: supple, trachea midline. Absent: lymphadenopathy - Respiratory Respiratory exam: Present: CTAB. Absent: accessory muscle use, rales, rhonchi, wheezes - Cardiovascular Cardiovascular exam: Present: RRR, +S1, +S2. Absent: diastolic murmur, gallop, rubs, systolic murmur - GI/Abdominal GI/Abdominal exam: Present: normal bowel sounds, soft, no peritoneal signs. Absent: distended, tenderness - Extremities Exam Extremities exam: Present: warm, radial pulses palpable and symetrical. Absent : calf tenderness, cyanotic, pedal edema - Neurological Exam Neurological exam: Present: CN II-XII intact, oriented X3, no focal deficits. Absent: pronater drift, facial droop, speech deficit - Skin Skin exam: Present: dry, intact
--- NOTE | 2016-10-04 17:38 | Electrocardiograph Report ---
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
[2016-10-09] MEDS ORDERED: *HR* Warfarin 7.5 MG TABLET PO SCH (18:00)
== END 2016-10-04 16:30 | disposition home or self-care (01) ==
LOC: 3BNU 12:14 → EMEROO 12:14 → SUATTDRO 14:55 → 3BNU 15:28
PROVIDERS: ADMIT Nurse Practitioner Family; ATTEND Internal Medicine

== ENCOUNTER 2017-05-01 13:14 | Observation (INO) ==
--- NOTE | 2017-05-01 15:45 | Emergency Department Note ---
Disposition Clinical Impression: COPD with exacerbation, CAD (coronary artery disease), Chest pain Disposition: Admitted As Inpatient Condition: Good Referrals: Ray Corrigan MD [Primary Care Provider] - Forms: ED Satisfaction Letter Time of Disposition: 18:37 Chest Pain HPI - General Chief Complaint: ED Chest Pain Stated Complaint: [facility]ER[facility] CP Time Seen by Provider: 05/01/17 15:43 Source: patient Mode of arrival: ambulatory Limitations: no limitations Vital Signs Reviewed: Yes Nursing Notes Reviewed: Yes - History of Present Illness HPI Narrative: This and 81-year-old male who states he has been having chest pain off and on for 3-4 weeks. Patient states he is getting worse. Patient follows with Dr. Laboy for cardiology and he does have a history of multiple cardiac stents as well as a pacemaker/defibrillator. Patient states he has been weaker than usual. Patient states associated shortness of breath but states he also has COPD and he wears 2 L of oxygen at home. Patient states he was getting a pacemaker evaluation today when he became more short of breath with worsening chest pain and he was sent over to the ER. Patient denies any fevers. Patient' s a poor historian. Pt complaint: chest pain Onset (ago): week(s) Duration: intermittent Severity scale (1-10): 4 Pain Radiation: back, neck - Related Data Home Medications Medication Instructions Recorded Confirmed Albuterol Neb [Proventil Neb] 2.5 mg IH Q4HR PRN 01/27/15 10/02/16 Tiotropium [place] [Spiriva] 18 mcg IH DAILY 01/27/15 10/02/16 Budesonide/Formoterol 160/4.5 2 puff IH BIDR 04/20/15 10/02/16 [Symbicort] Albuterol Sulfate [Albuterol 2 puff IH Q4H PRN 10/02/16 10/02/16 Inhaler] Atorvastatin [Lipitor] 40 mg PO HS 10/02/16 10/02/16 Magnesium Oxide [Magnesium] 500 mg PO DAILY 10/02/16 10/02/16 Tamsulosin [Flomax] 0.8 mg PO HS 10/02/16 10/02/16 Warfarin [Coumadin] 5 mg PO MOTUWETHFRSA 10/02/16 10/02/16 Warfarin [Coumadin] 7.5 mg PO MALDONADO 10/02/16 10/02/16 Previous Rx's Medication Instructions Recorded Clopidogrel [Plavix] 75 mg PO DAILY #30 tablet 10/04/16 Metoprolol [Lopressor] 50 mg PO BID #60 tablet 10/04/16 Ranolazine [Ranexa] 1,000 mg PO BID #120 tab.er.12h 10/04/16 PredniSONE [Deltasone] 40 mg PO DAILY #10 tablet 11/08/16 Promethazine/Dextromethorphan 5 ml PO Q6H #180 syrup 11/08/16 [Promethazine-Dm Syrup] levoFLOXacin [Levaquin] 500 mg PO DAILY #7 tablet 11/08/16 Allergies Allergy/AdvReac Type Severity Reaction Status Date / Time nitroglycerin Allergy Mild Hypotension Verified 09/26/15 13:16 aspirin [ASA] AdvReac Unknown Nose Bleed Verified 10/22/15 04:34 doxycycline AdvReac Redness of Verified 05/15/16 09:22 Skin All systems ED: reviewed and negative except as stated. Constitutional: Reports: weakness. Denies: fever, chills, weight change Eyes: Denies: eye pain, eye discharge, vision change ENT ED: Denies: ear pain, throat pain, dental pain, hearing loss, epistaxis, congestion, dysphagia Cardiovascular: Reports: chest pain, dyspnea on exertion. Denies: palpitations , edema, syncope Respiratory: Reports: dyspnea. Denies: cough, wheezes, hemoptysis, stridor Gastrointestinal: Denies: abdominal pain, nausea, vomiting, diarrhea, constipation, hematemesis, melena, hematochezia Genitourinary: Denies: urgency, dysuria, frequency, hematuria Musculoskeletal: Denies: back pain, neck pain, arthralgia, myalgia Integumentary: Denies: rash, abrasion, lesions Neurological: Denies: headache, numbness, paresthesias, confusion, abnormal gait , vertigo Psychiatric: Denies: anxiety, depression, suicidal thoughts, homicidal thoughts , auditory hallucinations, visual hallucinations Endocrine: Denies: fatigue Hematological/Lymphatic: Denies: easy bleeding, easy bruising Allergic/Immunologic: Denies: facial swelling, urticaria Chest Pain PMH - Past Medical History Medical history: Reports: arthritis, asthma, coronary artery disease, DVT, hyperlipidemia, myocardial infarction, TIA Surgical history: Reports: cholecystectomy, coronary bypass (CABG), orthopedic, other, pacemaker/AICD Psychiatric history: Reports: no psych history - Social History Smoking Status: Never smoker Alcohol use: Reports: none Drug use: Reports: none Physical Exam - General Limitations: no limitations General appearance: alert, other (appears to be in pain) - Head Head exam: atraumatic, normocephalic, normal inspection - Eye Eye exam: Present: normal appearance, PERRL, EOMI - Expanded Eye Exam Pupils: Bilateral: regular, round, reactive - ENT ENT exam: normal exam, normal oropharynx, mucous membranes moist - Expanded ENT Exam External ear exam: Present: normal external inspection Mouth exam: Present: normal external inspection Teeth exam: Present: normal inspection Throat exam: Present: normal inspection - Neck Neck exam: Present: normal inspection, full ROM, trachea midline - Chest Chest inspection: Present: normal inspection, symmetric chest wall rise - Respiratory Respiratory exam: Present: wheezes, other (rhochi) - Cardiovascular Cardiovascular exam: Present: regular rate, normal rhythm, normal heart sounds - Abdominal Exam Abdominal exam: Present: soft, Non-Tender. Absent: tenderness, distention, guarding, rebound, rigidity - Extremities Exam Extremities exam: Present: normal inspection, full ROM. Absent: tenderness, pedal edema - Expanded Upper Extremity Exam Shoulder exam: Present: normal inspection, full ROM Arm exam: Present: normal inspection, full ROM Elbow exam: Present: normal inspection, full ROM Forearm/Wrist exam: Present: normal inspection, full ROM Hand exam: Present: normal inspection, full ROM Vascular exam: Normal: capillary refill, radial pulse - Expanded Lower Extremity Exam Hip/Pelvis exam: Present: normal inspection, full ROM Upper leg exam: Present: normal inspection, full ROM Knee exam: Present: normal inspection, full ROM Lower leg exam: Present: normal inspection, full ROM Ankle exam: Present: normal inspection, full ROM Foot/toe exam: Present: normal inspection, full ROM Neurovascular/Tendon exam: Absent: motor deficit, sensory deficit, tendon deficit - Back Exam Back exam: Present: normal inspection, full ROM. Absent: tenderness - Neurological Exam Neurological exam: Present: alert, oriented X3 - Expanded Neurological Exam Patient oriented to: Present: person, place, time Coma Scale Eye Opening: Spontaneous Coma Scale Motor Response: Obeys Commands Coma Scale Verbal Response: Oriented Coma Scale Total: 15 - Psychiatric Psychiatric exam: Present: other (pt is a poor historian and appears to be in pain but he is oriented) - Skin Skin exam: Present: warm, dry, intact, normal color Course - Consultations Consultation #1: I spoke with Dr. Salomón de la cruz to admit. 18:03. Consultation #2: I spoke with Dr. Toney de la cruz to admit. 18:37. Vital Signs Temperature 97.9 F 05/01/17 14:09 Pulse Rate 60 05/01/17 14:09 Respiratory Rate 18 05/01/17 14:09 Blood Pressure 112/67 05/01/17 14:09 O2 Sat by Pulse Oximetry 93 05/01/17 14:09 Temperature 97.9 F 05/01/17 14:09 Pulse Rate 59 05/01/17 17:26 Respiratory Rate 16 05/01/17 17:26 Blood Pressure 126/76 05/01/17 17:26 O2 Sat by Pulse Oximetry 97 05/01/17 17:26 Oxygen Delivery Oxygen Delivery Nasal Cannula Chest Pain - Medical Records Medical records reviewed: Yes I reviewed the patient's medical records. - Lab Data Lab results reviewed: Yes I reviewed the patient's lab results. Result diagrams: 05/01/17 16:06 05/01/17 16:06 Lab Results 05/01/17 05/01/17 05/01/17 Range/Units 16:06 16:06 16:06 WBC 5.3 (4.3-11.1) K/mcL RBC 4.82 (4.19-5.50) M/mcL Hgb 13.6 (12.9-16.9) g/dL Hct 42.9 (37.5-50.1) % MCV 89.0 (83.0-100.0) fL MCH 28.2 (28.0-33.3) pg MCHC 31.7 (31.6-35.5) g/dL RDW 13.8 (11.5-14.5) % Plt Count 214 (140-400) K/mcL MPV 9.5 (9.4-12.4) fL Immature Gran % 0.4 (0-4) % Seg Neutrophils % 58.0 % Lymphocytes % 27.2 % Monocytes % 9.6 % Eosinophils % 4.2 % Basophils % 0.6 % Neutrophils # 3.1 (1.6-8.9) K/mcL Lymphocytes # 1.4 (0.6-4.6) K/mcL Monocytes # 0.5 (0.0-1.3) K/mcL Eosinophils # 0.2 (0.0-0.6) K/mcL Basophils # 0.0 (0.0-0.2) K/mcL PT 24.8 H (9.4-12.1) Seconds INR 2.3 APTT 42.0 H (26.0-36.0) Seconds D-Dimer 461 (0-500) ng/mLFEU Sodium (136-145) mEq/L Potassium (3.5-4.5) mEq/L Chloride (98-109) mEq/L Carbon Dioxide (19-29) mEq/L BUN (8-26) mg/dL Creatinine (0.72-1.25) mg/dL Est GFR ( Amer) (> 60) Est GFR (Non-Af Amer) (> 60) BUN/Creatinine Ratio (6-26) Glucose (70-99) mg/dL Calculated Osmolality (280-300) Calcium (8.6-10.8) mg/dL Total Bilirubin (0.2-1.2) mg/dL AST (5-34) Units/L ALT (0-55) Units/L Alkaline Phosphatase (38-126) Units/L Troponin I (0-0.03) ng/mL B-Natriuretic Peptide 86 (0-100) pg/mL Serum Total Protein (6.0-8.3) g/dL Albumin (3.5-5.0) g/dL Globulin (2.4-3.5) g/dL Albumin/Globulin Ratio (1.1-2.2) 05/01/17 05/01/17 Range/Units 16:06 17:19 WBC (4.3-11.1) K/mcL RBC (4.19-5.50) M/mcL Hgb (12.9-16.9) g/dL Hct (37.5-50.1) % MCV (83.0-100.0) fL MCH (28.0-33.3) pg MCHC (31.6-35.5) g/dL RDW (11.5-14.5) % Plt Count (140-400) K/mcL MPV (9.4-12.4) fL Immature Gran % (0-4) % Seg Neutrophils % % Lymphocytes % % Monocytes % % Eosinophils % % Basophils % % Neutrophils # (1.6-8.9) K/mcL Lymphocytes # (0.6-4.6) K/mcL Monocytes # (0.0-1.3) K/mcL Eosinophils # (0.0-0.6) K/mcL Basophils # (0.0-0.2) K/mcL PT (9.4-12.1) Seconds INR APTT (26.0-36.0) Seconds D-Dimer (0-500) ng/mLFEU Sodium 144 (136-145) mEq/L Potassium 3.9 (3.5-4.5) mEq/L Chloride 102 (98-109) mEq/L Carbon Dioxide 32 H (19-29) mEq/L BUN 18 (8-26) mg/dL Creatinine 0.92 (0.72-1.25) mg/dL Est GFR ( Amer) > 60 (> 60) Est GFR (Non-Af Amer) > 60 (> 60) BUN/Creatinine Ratio 20 (6-26) Glucose 91 (70-99) mg/dL Calculated Osmolality 299 (280-300) Calcium 9.1 (8.6-10.8) mg/dL Total Bilirubin 1.0 (0.2-1.2) mg/dL AST 26 (5-34) Units/L ALT 19 (0-55) Units/L Alkaline Phosphatase 90 (38-126) Units/L Troponin I 0.00 (0-0.03) ng/mL B-Natriuretic Peptide (0-100) pg/mL Serum Total Protein 7.7 (6.0-8.3) g/dL Albumin 3.9 (3.5-5.0) g/dL Globulin 3.8 H (2.4-3.5) g/dL Albumin/Globulin Ratio 1.0 L (1.1-2.2) - Radiology Data Radiology results reviewed: Yes I reviewed the patient's radiology results. - EKG Data EKG attestation: Yes I reviewed and interpreted this EKG. Interpretation: other (paced rhythm)
[2017-05-01] MEDS ORDERED: *HR* Morphine 2 MG/ML SYRINGE IVP ONE (15:47)
[2017-05-01 16:22] LABS: Basophils % 0.6 %; Eosinophils # 0.2 K/mcL (0.0-0.6); Eosinophils % 4.2 %; Hematocrit 42.9 % (37.5-50.1); Hemoglobin 13.6 g/dL (12.9-16.9); Immature Granulocytes % 0.4 % (0-4); Lymphocytes # 1.4 K/mcL (0.6-4.6); Lymphocytes % 27.2 %; Mean Corpuscular HGB Conc 31.7 g/dL (31.6-35.5); Mean Corpuscular Hemoglobin 28.2 pg (28.0-33.3); Mean Platelet Volume 9.5 fL (9.4-12.4); Monocytes # 0.5 K/mcL (0.0-1.3); Monocytes % 9.6 %; Neutrophils # 3.1 K/mcL (1.6-8.9); Platelet Count 214 K/mcL (140-400); Red Blood Count 4.82 M/mcL (4.19-5.50); Red Cell Distribution Width 13.8 % (11.5-14.5)
[2017-05-01 16:26] LABS: INR 2.3; Prothrombin Time 24.8 Seconds (9.4-12.1)
[2017-05-01 16:39] LABS: Alanine Aminotransferase 19 Units/L (0-55); Albumin 3.9 g/dL (3.5-5.0); Alkaline Phosphatase 90 Units/L (38-126); Aspartate Amino Transferase 26 Units/L (5-34); BUN/Creatinine Ratio 20 (6-26); Blood Urea Nitrogen 18 mg/dL (8-26); Calcium 9.1 mg/dL (8.6-10.8); Carbon Dioxide 32 mEq/L (19-29); Chloride 102 mEq/L (98-109); Globulin 3.8 g/dL (2.4-3.5); Glucose 91 mg/dL (70-99); Osmolality,Calculated 299 (280-300); Potassium 3.9 mEq/L (3.5-4.5); Sodium 144 mEq/L (136-145); Total Protein 7.7 g/dL (6.0-8.3); eGFR For African Americans > 60 (> 60); eGFR For Non-African Americans > 60 (> 60)
[2017-05-01] MEDS ORDERED: *HR* Morphine 2 MG/ML SYRINGE IVP PRN (22:16)
[2017-05-01] MEDS ORDERED: Naloxone 0.4 MG/ML INJ IVP PRN (22:16)
[2017-05-01] MEDS ORDERED: *HR* HYDROcodone/Acet 5/325 mg TABLET PO PRN (22:16)
[2017-05-01] MEDS ORDERED: Ondansetron 4 MG/2 ML VIAL IVP PRN (22:16)
--- NOTE | 2017-05-01 22:22 | Internal Med History&Physical ---
<Kelvin Huerta - Last Filed: 05/01/17 23:43> Date of Encounter: 05/01/17 Time of Encounter: 22:19 Assessment and Plan (1) Chest pain Current visit: Yes Status: Acute - Likely MSk vs angina given HPI and negative trops and EKG changes - Will trend trops, continue BB, plavix, statin - Admitted in september of this year for similar episode, pacemaker interrogated at that time and was functioning normally. - Most recent cardiac workup in September showing HFrEF, LHC in 2016 showed 100% occluded mid RCA, elected for medical management at that time. - Pt is currently asymptomatic. - Stress test in AM. NPO at midnight. Hold BB. Qualifiers: Chest pain type: precordial pain Qualified Code(s): R07.2 - Precordial pain (2) COPD (chronic obstructive pulmonary disease) Current visit: No Status: Chronic - Stable SOB. Not currently in exacerbation - Continue home meds and supplemental O2 as needed. Qualifiers: COPD type: unspecified COPD Qualified Code(s): J44.9 - Chronic obstructive pulmonary disease, unspecified (3) CAD (coronary artery disease) Current visit: Yes Status: Chronic - Workup for CP as above. - Continue home meds. Qualifiers: Coronary Disease-Associated Artery/Lesion type: bypass graft [place] vs. transplanted heart: [place] heart Associated angina: angina presence unspecified Qualified Code(s): I25.810 - Atherosclerosis of coronary artery bypass graft(s) without angina pectoris (4) Dyslipidemia Current visit: Yes Status: Chronic - Workup for CP. - Continue statin (5) DVT prophylaxis Current visit: Yes Status: Acute - Anticoagulated on coumadin. Internal Medicine - H&P: HPI Chief complaint: Chest Pain Admitted From: Emergency Dept Plans for Post Hospital Care: Home History of present illness: Mr. Nichols is a 81 year old male with PMHx of HTN, HLD, COPD, CAD s/p CABG and biventricular pacemaker presents to ED with a complaint of substernal chest pain radiating to left shoulder and bilateral neck for the past 3-4 weeks. He states he experiences these episodes about once per day which self resolve. He states that they are not related to exertion. He does state that some of the time he experiences dyspnea, nausea, diaphoresis with these episodes. He describes them as sharp in nature. He denies any symptoms of fevers, chills, cough outside normal, vomiting, changes to BM, numbness, tingling, weakness. He is not currently having any pain. He uses O2 at home for COPD at night and PRN during the day. In the ED, VSS. EKG showed biventricular pacing without ischemia. Trops negative. Labs otherwise unremarkable. CXR shows no acute process. Past Med Surg Social Fam HX - Past Medical History Medical history: arthritis, asthma, coronary artery disease, DVT, hyperlipidemia , myocardial infarction, TIA Psychiatric history: no psych history - Past Surgical History Surgical History: cholecystectomy, coronary bypass (CABG), orthopedic, other, pacemaker/AICD - Social History Smoking Status: Never smoker Smokeless Tobacco Status: No Alcohol use: none Drug use: none - Family History Mother Living Status: Father Living Status: Hx Family Cardiac Disorders: Yes (MD) Daughter Adopted: No Family Member Ethnicity: Non- Living Status: Still Living Hx Family Cardiac Disorders: Yes (HYPERTENTION) Internal Medicine - H&P: Meds Albuterol Neb [Proventil Neb] 2.5 mg IH Q4HR PRN 01/27/15 [History] Tiotropium [place] [Spiriva] 18 mcg IH DAILY 01/27/15 [History] Budesonide/Formoterol 160/4.5 [Symbicort] 2 puff IH BIDR 04/20/15 [History] Albuterol Sulfate [Albuterol Inhaler] 2 puff IH Q4H PRN 10/02/16 [History] Atorvastatin [Lipitor] 40 mg PO HS 10/02/16 [History] Magnesium Oxide [Magnesium] 500 mg PO DAILY 10/02/16 [History] Warfarin [Coumadin] 5 mg PO SUMOTUWETHFR 10/02/16 [History] Warfarin [Coumadin] 7.5 mg PO SA 10/02/16 [History] Clopidogrel [Plavix] 75 mg PO DAILY #30 tablet 10/04/16 [Rx] Fluticasone Propionate Nasal [Flonase] 50 mcg NS BID PRN 05/01/17 [History] Furosemide [Lasix] 40 mg PO DAILY 05/01/17 [History] HYDROcodone/Acet 5/325 mg [[place] 5-325 mg] 1 tab PO Q6H PRN 05/01/17 [History] Loratadine [Claritin] 10 mg PO DAILY 05/01/17 [History] Metoprolol [Lopressor] 25 mg PO BID 05/01/17 [History] Ranolazine [Ranexa] 500 mg PO BID 05/01/17 [History] 3 Allergy/AdvReac Type Severity Reaction Status Date / Time nitroglycerin Allergy Mild Hypotension Verified 09/26/15 13:16 aspirin [ASA] AdvReac Unknown Nose Bleed Verified 10/22/15 04:34 doxycycline AdvReac Redness of Verified 05/15/16 09:22 Skin All Systems PM: A 10-system review of systems was performed and is negative for pertinent findings except as documented above in the HPI. - Constitutional Constitutional: excessive sweating, no anorexia, no chills, no fatigue, no fever (s), no lethargy, no malaise, no weakness - Cardiovascular Cardiovascular ROS IM: chest pain, diaphoresis, dyspnea, no dyspnea on exertion , no edema, no lightheadedness, no orthopnea - Respiratory Respiratory: cough (chronic), dyspnea, no dyspnea on exertion - Gastrointestinal Gastrointestinal: nausea, no abdominal pain, no change in bowel habits, no constipation, no diarrhea, no vomiting - Genitourinary Genitourinary ROS male: no dysuria - Neurological Neurological ROS: no numbness, no tingling - Constitutional Vitals: Temp Pulse Resp BP Pulse Ox 97.7 F 67 16 118/72 95 05/01/17 21:14 05/01/17 21:14 05/01/17 21:14 05/01/17 21:14 05/01/17 21:14 Exam: Gen.: Vitals noted. No acute distress. AAOx3 HEENT: PERRL, oropharynx clear, Normocephalic, atraumatic, MMM Cardiac: RRR, no murmur, +S1/S2 Pulmonary: CTA bilaterally, no wheezes, rales or rhonchi, equal chest expansion Abdomen: soft, mild tenderness in RLQ, BS noted, no guarding MSK: ROM intact, no joint swelling noted Extremities: no BLE edema, nontender calf, no cyanosis or clubbing Neuro: A&Ox3, moves all extremities, no focal deficits Psych: Appropriate mood and behavior Internal Med - H&P Results - Labs CBC & Chem 7: 05/01/17 16:06 05/01/17 16:06 <Da Segura H - Last Filed: 05/02/17 00:17> Date of Encounter: 05/02/17 Internal Medicine - H&P: HPI History of present illness: Mr. Nichols is a 81 year old male All Systems PM: A 10-system review of systems was performed and is negative for pertinent findings except as documented above in the HPI. - Constitutional Vitals: Temp Pulse Resp BP Pulse Ox 97.8 F 61 16 108/65 97 05/01/17 23:42 05/01/17 23:42 05/01/17 23:42 05/01/17 23:42 05/01/17 23:42 Internal Med - H&P Results - Labs CBC & Chem 7: 05/01/17 16:06 05/01/17 16:06 - Attending Attestation Schedule stress test in the morning Limited echocardiogram Time spent on this admission 40 minutes I examined this patient and my medical decision-making was reviewed with the Resident Physician. I agree with the documented findings, disposition and treatment plan as described except to the extent set forth below.
[2017-05-01] MEDS ORDERED: Albuterol 2.5 MG/3 ML NEBULIZER IH PRN (22:55)
[2017-05-01] MEDS: *HR* Warfarin 5 MG TABLET PO SCH (23:48)
[2017-05-02 00:32] LABS: Basophils % 0.7 %; Eosinophils # 0.2 K/mcL (0.0-0.6); Eosinophils % 3.6 %; Hematocrit 38.5 % (37.5-50.1); Hemoglobin 12.4 g/dL (12.9-16.9); Immature Granulocytes % 0.2 % (0-4); Lymphocytes # 1.4 K/mcL (0.6-4.6); Lymphocytes % 31.5 %; Mean Corpuscular HGB Conc 32.2 g/dL (31.6-35.5); Mean Corpuscular Hemoglobin 28.5 pg (28.0-33.3); Mean Corpuscular Volume 88.5 fL (83.0-100.0); Mean Platelet Volume 9.4 fL (9.4-12.4); Monocytes # 0.5 K/mcL (0.0-1.3); Monocytes % 11.7 %; Neutrophils # 2.3 K/mcL (1.6-8.9); Platelet Count 178 K/mcL (140-400); Red Blood Count 4.35 M/mcL (4.19-5.50); Red Cell Distribution Width 13.7 % (11.5-14.5); Segmented Neutrophils % 52.3 %
[2017-05-02 00:47] LABS: BUN/Creatinine Ratio 19 (6-26); Blood Urea Nitrogen 19 mg/dL (8-26); Calcium 8.8 mg/dL (8.6-10.8); Carbon Dioxide 34 mEq/L (19-29); Chloride 102 mEq/L (98-109); Glucose 121 mg/dL (70-99); Osmolality,Calculated 300 (280-300); Potassium 3.9 mEq/L (3.5-4.5); Sodium 143 mEq/L (136-145); eGFR For African Americans > 60 (> 60); eGFR For Non-African Americans > 60 (> 60)
[2017-05-02] MEDS ORDERED: Regadenoson 0.4 MG/5 ML SYRINGE IVP ONE (06:08)
[2017-05-02] MEDS: Furosemide 40 MG TABLET PO SCH (09:24)
[2017-05-02] MEDS: Ranolazine 500 MG TAB.ER.12H PO SCH ×2 (09:24→20:48)
[2017-05-02] MEDS: Acetaminophen 325 MG TABLET PO PRN ×2 (09:40→23:47)
[2017-05-02] MEDS: *HR* Warfarin 5 MG TABLET PO SCH (17:47)
--- NOTE | 2017-05-02 18:36 | Internal Med Progress Note ---
Date of Encounter: 05/02/17 Time of Encounter: 15:35 - Assessment and plan (1) Chest pain Current Visit: Yes Status: Acute Assessment and plan: Patient reports substernal left upper chest pain with radiation to left jaw, left shoulder and neck for the past 3-4 weeks. Pain is intermittent and resolves on its own. He denies any relation to eating or exertion. He describes it as a dull ache and states that it does happen daily. He reports some shortness of breath diaphoresis, denies nausea. Troponins were negative. Chest x-ray was negative. His vital signs have been stable. Stress test was negative with a gated EF is 52%., there was an area noted to be prior infarct. Limited Echocardiogram showed an LVEF of 40-45% with segmental LV systolic dysfunction. Patient was seen by cardiology in September of this year. Apparently he has known 100% mid RCA stenosis per [facility] in 2016. Was recommended that time he continue antiplatelet therapy B and started Plavix. At that time it was also recommended that he would increase Ranexa and change the Coreg to metoprolol. Patient states that he does not take Ranexa although it is listed on his home medication list, 500 mg by mouth twice a day. He states that he is intolerant of any other nitrate. Cardiology consult in the morning Continue telemetry Continue home medications. Qualifiers: Chest pain type: unspecified Qualified Code(s): R07.9 - Chest pain, unspecified (2) COPD (chronic obstructive pulmonary disease) Current Visit: Yes Status: Chronic Assessment and plan: No acute exacerbation at this time. Continue home medications. Patient is requiring 2-3 L of supplemental oxygen to maintain sats greater than 92%. Continue to titrate as needed to maintain sats. He is in no respiratory distress and his lungs are clear and diminished throughout. Qualifiers: COPD type: unspecified COPD Qualified Code(s): J44.9 - Chronic obstructive pulmonary disease, unspecified (3) CAD (coronary artery disease) Current Visit: Yes Status: Chronic Assessment and plan: Chronic. Plan as above. Qualifiers: Coronary Disease-Associated Artery/Lesion type: bypass graft [place] vs. transplanted heart: [place] heart Associated angina: angina presence unspecified Qualified Code(s): I25.810 - Atherosclerosis of coronary artery bypass graft(s) without angina pectoris (4) Anticoagulation monitoring by pharmacist Current Visit: Yes Status: Chronic Assessment and plan: Patient is on warfarin, pharmacy is dosing. INR was subtherapeutic on admission 2.3. Will recheck in the morning. (5) DVT prophylaxis Current Visit: Yes Status: Acute Assessment and plan: Patient is on Coumadin. - Time Spent With Patient less than 15 minutes - Subjective Interval history: Patient was seen and assessed at 1535. Family members at bedside. He reports a dull ache in his left upper chest, he states he has not several times daily for the last few days. He reports radiation into his left neck and shoulders. He reports feeling short of breath, no nausea, sometimes he has diaphoresis. Patient states that he is intolerant of nitrates, even reports he is intolerant of long-acting nitrates. He states that he did take Ranexa, it was stopped and he is unsure why. He is unsure when it was stopped as well. He reports 4/10 chest pain at the time. It is not reproducible to palpation, movement, deep inspiration. He denies recent fever or chills. He denies nausea, vomiting, diaphoresis or radiation at this time. He denies any headache, blurred vision, shortness of breath. He is agreeable to staying overnight and see cardiology in the morning. - Constitutional Vitals: Temp Pulse Resp BP Pulse Ox 98.0 F 98 16 115/69 96 05/02/17 15:58 05/02/17 15:58 05/02/17 15:58 05/02/17 15:58 05/02/17 15:58 General appearance: Present: cooperative, mild distress, A&O X 3, pleasant, answers questions appropriately - Head Head exam: Present: atraumatic, normal inspection, normocephalic - Eye Eye exam: Present: normal appearance, conjuntiva pink, sclera anicteric - Neck Neck exam general surgery: Present: normal inspection, supple, trachea midline. Absent: lymphadenopathy - Respiratory Respiratory exam: Present: CTAB. Absent: accessory muscle use, rales, respiratory distress, rhonchi, wheezes - Cardiovascular Cardiovascular exam: Present: RRR, +S1, +S2. Absent: diastolic murmur, gallop, rubs, systolic murmur - GI/Abdominal GI/Abdominal exam: Present: normal bowel sounds, soft. Absent: distended, hepatomegaly, tenderness - Extremities Exam Extremities exam: Present: normal capillary refill, normal inspection, warm, radial pulses palpable and symmetrical. Absent: calf tenderness, cyanotic, pedal edema, tenderness - Neurological Exam Neurological exam: Present: alert, oriented X3, no focal deficits. Absent: facial droop, speech deficit - Skin Skin exam: Present: dry, intact, normal color, warm. Absent: rash Internal Medicine: Result - Labs CBC & Chem 7: 05/02/17 00:02 05/02/17 00:02 Labs: Short CBC 05/02/17 Range/Units 00:02 WBC 4.4 (4.3-11.1) K/mcL Hgb 12.4 L (12.9-16.9) g/dL Hct 38.5 (37.5-50.1) % Plt Count 178 (140-400) K/mcL Neutrophils # 2.3 (1.6-8.9) K/mcL BMP 05/02/17 00:02 Sodium 143 Potassium 3.9 Chloride 102 Carbon Dioxide 34 H BUN 19 Creatinine 1.00 Glucose 121 H Calcium 8.8 Cardiac Enzymes 05/02/17 Range/Units 00:02 Troponin I 0.01 (0-0.03) ng/mL - ABG Interpretation ABG results: PT/INR, D-dimer PT 24.8 Seconds (9.4-12.1) H 05/01/17 16:06 D-Dimer 461 ng/mLFEU (0-500) 05/01/17 16:06 - Impressions Impressions Echocardiogram Limited Views 05/02/17 23:30 Impressions: LVEF 40-45%. Segmental left ventricular systolic dysfunction. Left Ventricular Wall Motion: Rest Echo Findings The apex, apical inferior, mid inferior, basal inferior and apical septal stauffer were hypokinetic. All other wall segments showed normal motion. Findings: Study Quality * Technically adequate exam. ECG Findings * Paced rhythm. Left Ventricle * LVEF 40-45%. * Segmental left ventricular systolic dysfunction. Right Ventricle * Normal right ventricular structure and function. Left Atrium * Mildly dilated left atrium. Right Atrium * Normal right atrial size. IVC * Normal IVC dimensions and inspiratory collapse. Device lead * A device lead was visualized in the right atrium and right ventricle. Consult Discharge Plan - Plan Referrals: Ray Corrigan MD [Primary Care Provider] -
[2017-05-03 05:36] LABS: Basophils % 0.7 %; Eosinophils # 0.2 K/mcL (0.0-0.6); Eosinophils % 5.3 %; Hematocrit 38.7 % (37.5-50.1); Hemoglobin 12.3 g/dL (12.9-16.9); Immature Granulocytes % 0.2 % (0-4); Lymphocytes # 1.4 K/mcL (0.6-4.6); Lymphocytes % 30.1 %; Mean Corpuscular HGB Conc 31.8 g/dL (31.6-35.5); Mean Platelet Volume 9.4 fL (9.4-12.4); Monocytes # 0.5 K/mcL (0.0-1.3); Monocytes % 10.7 %; Neutrophils # 2.4 K/mcL (1.6-8.9); Platelet Count 158 K/mcL (140-400); Red Cell Distribution Width 13.7 % (11.5-14.5)
[2017-05-03 05:40] LABS: INR 2.1; Prothrombin Time 22.5 Seconds (9.4-12.1)
[2017-05-03 06:11] LABS: BUN/Creatinine Ratio 24 (6-26); Blood Urea Nitrogen 20 mg/dL (8-26); Calcium 8.6 mg/dL (8.6-10.8); Carbon Dioxide 28 mEq/L (19-29); Chloride 107 mEq/L (98-109); Glucose 108 mg/dL (70-99); Osmolality,Calculated 293 (280-300); Potassium 4.2 mEq/L (3.5-4.5); Sodium 140 mEq/L (136-145); eGFR For African Americans > 60 (> 60); eGFR For Non-African Americans > 60 (> 60)
--- NOTE | 2017-05-03 06:30 | Electrocardiograph Report ---
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
[2017-05-03] MEDS ORDERED: Fluticasone Propionate Nasal 50 MCG/SPRAY BOTTLE NS PRN (08:46)
[2017-05-03] MEDS ORDERED: Loratadine 10 MG TABLET PO SCH (09:00)
[2017-05-03] MEDS ORDERED: Magnesium Oxide 400 MG TABLET PO SCH (09:00)
[2017-05-03] MEDS: Furosemide 40 MG TABLET PO SCH (09:16)
[2017-05-03] MEDS: Ranolazine 500 MG TAB.ER.12H PO SCH (09:17)
[2017-05-03] MEDS ORDERED: Tiotropium 18 MCG inhalation IH SCH (10:00)
[2017-05-03] MEDS ORDERED: Budesonide/Formoterol 160/4.5 MDI IH SCH (10:00)
[2017-05-03 11:01] VITALS: BP 126/73
--- NOTE | 2017-05-03 11:01 | Cardiology Consult Note ---
Date of Encounter: 05/03/17 Time of Encounter: 09:00 Assessment and Plan (1) Chest pain Current Visit: Yes Status: Chronic Per cardiology: -Admitted with chest pain that occured at rest. -Denies current chest pain. -Troponin negative. -Stress test with no evidence of ischemia, prior infarct noted. -TTE with LVEF 40-45%, apex, apical inferior, mid inferior, and apical septal stauffer hypokinetic. All other wall segments with normal motion. -Per review of records, was seen by inpatient cardiology in September and was recommended to increase ranexa to 1000mg BID. Was also recommended to switch coreg to metoprolol for chest pain. However, it does not appear that patient continued with these recommendations once was discharged. -Patient states he is unsure why he never started medications at home -Patient follows with , however has not been seen by since 2016. -Will increase ranexa. -Will start metoprolol. -Cardiology will sign off and will follow in outpatient setting. Follow up set. Qualifiers: Chest pain type: unspecified Qualified Code(s): R07.9 - Chest pain, unspecified (2) CAD (coronary artery disease) Current Visit: Yes Status: Chronic Per cardiology: -Know CAD s/p CABG and PCI. -Last [facility] 100% mid LAD stenosis, 99% diagonal 1 small vessel, 20% proximal circumflex, 30% ramus, 100% mid RCA, MACHUCA to LAD patent. -Stress and echo as above. -Not on asa, patient states he cannot tolerate asa, but is unsure why. -Not on beta russell, during hospitalization 09/2016 was started on metoprolol, however he has not taken. -On statin, plavix, ranexa 500mg. -Patient states he is intolerant to nitrates due to BP. -Will start beta russell. -Will increase ranexa to 1000mg BID. -Will set patient for outpatient follow up. Qualifiers: Coronary Disease-Associated Artery/Lesion type: bypass graft [place] vs. transplanted heart: [place] heart Associated angina: angina presence unspecified Qualified Code(s): I25.810 - Atherosclerosis of coronary artery bypass graft(s) without angina pectoris (3) Cardiac pacemaker Current Visit: No Status: Chronic Per cardiology: -Known pacemaker for complete heart block. -Follows with [facility]. (4) PAF (paroxysmal atrial fibrillation) Current Visit: Yes Status: Chronic Per cardiology: -has known PAF. -ON coumadin. -Will continue to follow in outpatient setting. Discussion w patient/family: The assessment and plan as outlined above was discussed with the patient who expressed understanding and agreement. All questions were answered. Thank you for involving us in the care of your patient. Please call with any questions. Discussed and reviewed with . History of Present Illness Consult date: 05/02/17 Requesting physician: Hanna Humphrey Consult reason: chest pain, recommendations for medical management Chief complaint: chest pain History of present illness: Mr. Nichols is a 81 year old male with a relevant past medical history of asthma, CAD s/p CABG and PCI, [place], GERD, hyperlipidemia, sleep apnea, COPD, PAF, ischemic cardiomyopathy. Patient presented to [facility] with complaints of chest pain. Patient states pain occured while sitting at rest. Patient describes pain as sharp stabbing. Patient states pain last for a few seconds and then spontaneously resolves. Patient denies aggravating or alleviating factors. Patient states this pain is different from his previous anginal equivalent. Patient denies increased shortness of breath or increased fatigue. Patient denies exertional symptoms. Past Med Surg Social Fam HX - Past Medical History Source: patient, old records reviewed Medical history: arthritis, asthma, atrial fibrillation, coronary artery disease , DVT, hyperlipidemia, myocardial infarction, TIA Psychiatric history: no psych history - Past Surgical History Surgical History: cholecystectomy, coronary bypass (CABG), orthopedic, other, pacemaker/AICD - Social History Smoking Status: Never smoker Smokeless Tobacco Status: No Alcohol use: none Drug use: none - Family History Mother Living Status: Father Living Status: Hx Family Cardiac Disorders: Yes (AR) Daughter Adopted: No Family Member Ethnicity: Non- Living Status: Still Living Hx Family Cardiac Disorders: Yes (HYPERTENTION) Medications and Allergies Albuterol Neb [Proventil Neb] 2.5 mg IH Q4HR PRN 01/27/15 [History] Tiotropium [place] [Spiriva] 18 mcg IH DAILY 01/27/15 [History] Budesonide/Formoterol 160/4.5 [Symbicort] 2 puff IH BIDR 04/20/15 [History] Albuterol Sulfate [Albuterol Inhaler] 2 puff IH Q4H PRN 10/02/16 [History] Atorvastatin [Lipitor] 40 mg PO HS 10/02/16 [History] Magnesium Oxide [Magnesium] 500 mg PO DAILY 10/02/16 [History] Warfarin [Coumadin] 5 mg PO SUMOTUWETHFR 10/02/16 [History] Warfarin [Coumadin] 7.5 mg PO SA 10/02/16 [History] Clopidogrel [Plavix] 75 mg PO DAILY #30 tablet 10/04/16 [Rx] Fluticasone Propionate Nasal [Flonase] 50 mcg NS BID PRN 05/01/17 [History] Furosemide [Lasix] 40 mg PO DAILY 05/01/17 [History] HYDROcodone/Acet 5/325 mg [Capulin 5-325 mg] 1 tab PO Q6H PRN 05/01/17 [History] Loratadine [Claritin] 10 mg PO DAILY 05/01/17 [History] Metoprolol [Lopressor] 25 mg PO BID 05/01/17 [History] Ranolazine [Ranexa] 500 mg PO BID 05/01/17 [History] 3 Allergy/AdvReac Type Severity Reaction Status Date / Time nitroglycerin Allergy Mild Hypotension Verified 09/26/15 13:16 aspirin [ASA] AdvReac Unknown Nose Bleed Verified 10/22/15 04:34 doxycycline AdvReac Redness of Verified 05/15/16 09:22 Skin All Systems Review: A 10-system review of systems was performed and is negative for pertinent findings except as documented above in the HPI. - Cardiovascular Cardiovascular: as per HPI, chest pain at rest Physical Examination Vital Signs, Last 4 Hours Pulse Ox 05/03/17 09:20 97 Vital Signs Temperature 97.9 F 05/01/17 14:09 Pulse Rate 60 05/01/17 14:09 Respiratory Rate 18 05/01/17 14:09 Blood Pressure 112/67 05/01/17 14:09 O2 Sat by Pulse Oximetry 93 05/01/17 14:09 Temperature 98.2 F 05/03/17 10:57 Pulse Rate 76 05/03/17 10:57 Respiratory Rate 17 05/03/17 10:57 Blood Pressure 126/73 05/03/17 10:57 O2 Sat by Pulse Oximetry 96 05/03/17 10:57 Oxygen Delivery Oxygen Delivery Nasal Cannula General: Conversant, No Apparent Distress HEENT: Atraumatic, Normocephaly, Mucus Membranes Moist Neck: No JVD, Normal carotid pulses Cardiac: Reg Rate and Rhythm, Normal S1 and S2, No Murmur Lungs: Normal Breath Sounds, No Wheeze, Rales, Rhonchi Neuro: Alert and responsive, No focal deficits noted Abdomen: Soft, Non-Tender Skin: No rashes noted on visualized skin Musculoskeletal: No Chest Wall Tenderness Extremities: No Clubbing, No Cyanosis, No Edema, Normal Pulses Results 05/03/17 05:20 05/03/17 05:20 Lab Results Impressions Echocardiogram Limited Views 05/02/17 23:30 Impressions: LVEF 40-45%. Segmental left ventricular systolic dysfunction. Left Ventricular Wall Motion: Rest Echo Findings The apex, apical inferior, mid inferior, basal inferior and apical septal stauffer were hypokinetic. All other wall segments showed normal motion. Findings: Study Quality * Technically adequate exam. ECG Findings * Paced rhythm. Left Ventricle * LVEF 40-45%. * Segmental left ventricular systolic dysfunction. Right Ventricle * Normal right ventricular structure and function. Left Atrium * Mildly dilated left atrium. Right Atrium * Normal right atrial size. IVC * Normal IVC dimensions and inspiratory collapse. Device lead * A device lead was visualized in the right atrium and right ventricle. Active Medications Acetaminophen (Tylenol) 650 mg PO Q6HR PRN PRN Reason: Mild Pain (1-3) Stop: 10/31/17 22:17 Last Admin: 05/02/17 23:47 Dose: 650 mg Hydrocodone Bitart/Acetaminophen ([place] 5-325 Mg) 1 tab PO Q4HR PRN PRN Reason: Moderate Pain (4-6) Stop: 10/31/17 22:17 Albuterol Sulfate (Proventil Neb) 2.5 mg IH Q4HR PRN; Protocol PRN Reason: Shortness Of Breath Stop: 10/31/17 22:56 Albuterol Sulfate (Albuterol Inhaler) 2 puff IH Q4H PRN PRN Reason: Shortness Of Breath Stop: 10/31/17 22:56 Last Admin: 05/02/17 05:55 Dose: 2 puff Atorvastatin Calcium (Lipitor) 40 mg PO HS ALEM Stop: 11/01/17 21:01 Last Admin: 05/02/17 20:47 Dose: 40 mg Budesonide/Formoterol Fumarate (Symbicort) 2 puff IH BIDR [facility] PRN Reason: Protocol Stop: 11/02/17 10:01 Clopidogrel Bisulfate (Plavix) 75 mg PO DAILY [facility] Stop: 11/01/17 09:01 Last Admin: 05/03/17 09:17 Dose: 75 mg Docusate Sodium (Colace) 100 mg PO BID PRN PRN Reason: Constipation Stop: 10/31/17 22:17 Fluticasone Propionate (Flonase) 50 mcg NS BID PRN; Protocol PRN Reason: Allergy Symptoms Stop: 11/02/17 08:47 Furosemide (Lasix) 40 mg PO DAILY [facility] Stop: 11/01/17 09:01 Last Admin: 05/03/17 09:16 Dose: Not Given Loratadine (Claritin) 10 mg PO DAILY [facility] PRN Reason: Protocol Stop: 11/02/17 09:01 Last Admin: 05/03/17 09:17 Dose: 10 mg Magnesium Oxide (Mag-Ox) 400 mg PO DAILY [facility] Stop: 11/02/17 09:01 Last Admin: 05/03/17 09:17 Dose: 400 mg Metoprolol Tartrate (Lopressor) 25 mg PO BID [facility] Stop: 11/02/17 11:01 Morphine Sulfate (Morphine Sulfate) 2 mg IVP Q4HR PRN PRN Reason: Severe Pain (7-10) Stop: 10/31/17 22:17 Naloxone HCl (Narcan) 0.4 mg IVP Q2MIN PRN PRN Reason: Opioid Reversal Stop: 10/31/17 22:17 Ondansetron HCl (Zofran) 4 mg IVP Q8HR PRN PRN Reason: Nausea And Vomiting Stop: 10/31/17 22:17 Ranolazine (Ranexa) 1,000 mg PO BID [facility] Stop: 11/02/17 21:01 Tiotropium [place] (Spiriva) 18 mcg IH DAILYR [facility] Stop: 11/02/17 10:01 Warfarin Sodium (Coumadin) 5 mg PO [id number] [facility] Stop: 10/31/17 23:01 Last Admin: 05/02/17 17:47 Dose: 5 mg Warfarin Sodium (Coumadin) 7.5 mg PO SA [facility] Stop: 11/05/17 18:01 Laboratory Tests 1105/02/17 05/03/17 17:19 00:02 05:20 Hgb 12.3 L Creatinine Troponin I 0.00 0.01 05/03/17 05:20 Hgb Creatinine 0.85 Troponin I - Imaging and Cardiology Chest Xray: report reviewed Stress Test: report reviewed Echo: report reviewed - EKG Interpretation EKG results cardiology: personally reviewed (ECG with paced rhythm, HR 60.), other (Telemetry reviewed with average HR previous 12 hours noted to be 63, paced rhythm PVCs and PACs noted.) Consult Discharge Plan - Plan Referrals: Ray Corrigan MD [Primary Care Provider] - 05/09/17 11:30 am
--- NOTE | 2017-05-03 13:23 | Discharge Summary ---
Date of Encounter: 05/03/17 Time of Encounter: 08:40 - Discharge Diagnosis (1) Chest pain Priority: Primary Status: Chronic Comments: Per cardiology: -Admitted with chest pain that occured at rest. -Denies current chest pain. -Troponin negative. -Stress test with no evidence of ischemia, prior infarct noted. -TTE with LVEF 40-45%, apex, apical inferior, mid inferior, and apical septal stauffer hypokinetic. All other wall segments with normal motion. -Per review of records, was seen by inpatient cardiology in September and was recommended to increase ranexa to 1000mg BID. Was also recommended to switch coreg to metoprolol for chest pain. However, it does not appear that patient continued with these recommendations once was discharged. -Patient states he is unsure why he never started medications at home -Patient follows with , however has not been seen by since 2016. -Will increase ranexa. -Will start metoprolol. -Cardiology will sign off and will follow in outpatient setting. Follow up set. Patient reports substernal left upper chest pain with radiation to left jaw, left shoulder and neck for the past 3-4 weeks. Pain is intermittent and resolves on its own. He denies any relation to eating or exertion. He describes it as a dull ache and states that it does happen daily. He reports some shortness of breath diaphoresis, denies nausea. Troponins were negative. Chest x-ray was negative. His vital signs have been stable. Stress test was negative with a gated EF is 52%., there was an area noted to be prior infarct. Limited Echocardiogram showed an LVEF of 40-45% with segmental LV systolic dysfunction. Patient was seen by cardiology in September of this year. 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 in 2016. Was recommended that time he continue antiplatelet therapy, BB, and started Plavix. At that time it was also recommended that he would increase Ranexa and change the Coreg to metoprolol. Patient states that he does not take Ranexa although it is listed on his home medication list, 500 mg by mouth twice a day. He states that he is intolerant of nitrates. On day of discharge, pt denies any chest pain and was unable to verify that he was taking Ranexa at home. Will send pt home with rx for increased dose of Ranexa and metoprolol. Qualifiers: Chest pain type: unspecified Qualified Code(s): R07.9 - Chest pain, unspecified (2) COPD (chronic obstructive pulmonary disease) Priority: Primary Status: Chronic Comments: No acute exacerbation at this time. Continue home medications. He is in no respiratory distress and his lungs are clear and diminished throughout. Qualifiers: COPD type: unspecified COPD Qualified Code(s): J44.9 - Chronic obstructive pulmonary disease, unspecified (3) CAD (coronary artery disease) Priority: Secondary Status: Chronic Comments: Chronic. Pt denies chest pain today. Plan as above. Qualifiers: Coronary Disease-Associated Artery/Lesion type: bypass graft [place] vs. transplanted heart: [place] heart Associated angina: angina presence unspecified Qualified Code(s): I25.810 - Atherosclerosis of coronary artery bypass graft(s) without angina pectoris (4) Anticoagulation monitoring by pharmacist Priority: Secondary Status: Chronic (5) DVT prophylaxis Priority: Secondary Status: Acute Comments: Pt on Coumadin. - Discharge Medications Prescriptions: Metoprolol [Lopressor] 25 mg PO BID #60 tablet Ranolazine [Ranexa] 1,000 mg PO BID #120 tab.er.12h Home Medications: Albuterol Neb [Proventil Neb] 2.5 mg IH Q4HR PRN 01/27/15 [History] Tiotropium [place] [Spiriva] 18 mcg IH DAILY 01/27/15 [History] Budesonide/Formoterol 160/4.5 [Symbicort] 2 puff IH BIDR 04/20/15 [History] Albuterol Sulfate [Albuterol Inhaler] 2 puff IH Q4H PRN 10/02/16 [History] Atorvastatin [Lipitor] 40 mg PO HS 10/02/16 [History] Magnesium Oxide [Magnesium] 500 mg PO DAILY 10/02/16 [History] Warfarin [Coumadin] 5 mg PO SUMOTUWETHFR 10/02/16 [History] Warfarin [Coumadin] 7.5 mg PO SA 10/02/16 [History] Clopidogrel [Plavix] 75 mg PO DAILY #30 tablet 10/04/16 [Rx] Fluticasone Propionate Nasal [Flonase] 50 mcg NS BID PRN 05/01/17 [History] Furosemide [Lasix] 40 mg PO DAILY 05/01/17 [History] HYDROcodone/Acet 5/325 mg [[place] 5-325 mg] 1 tab PO Q6H PRN 05/01/17 [History] Loratadine [Claritin] 10 mg PO DAILY 05/01/17 [History] Ranolazine [Ranexa] 500 mg PO BID 05/01/17 [History] Metoprolol [Lopressor] 25 mg PO BID #60 tablet 05/03/17 [Rx] Ranolazine [Ranexa] 1,000 mg PO BID #120 tab.er.12h 05/03/17 [Rx] Allergies/Adverse Reactions: 3 Allergy/AdvReac Type Severity Reaction Status Date / Time nitroglycerin Allergy Mild Hypotension Verified 09/26/15 13:16 aspirin [ASA] AdvReac Unknown Nose Bleed Verified 10/22/15 04:34 doxycycline AdvReac Redness of Verified 05/15/16 09:22 Skin Procedures/tests Complete & Pending: Procedures Performed prior 72 hours Category Date Time Status NM celeste perf SPECT multi [NM] Routine Exams 05/01/17 23:30 Taken ECG 12 lead ECG [ECG] Routine Y 05/02/17 05:59 Completed EV limited echocardiogram Routine Y 05/02/17 23:30 Completed SP pharm nuclear stress Routine Y 05/01/17 23:30 Completed Date of admission: 05/01/17 19:29 Primary care physician: Ray Corrigan MD Consults: 05/02/17 18:45 Consult to Cardiology [CONS] Routine Comment: Consulting Provider: Cardiology Narcisa Reason for Consult: Continued chest pain. Recent work up in September, known 100 % stenosis in RCA. Requesting recommendation for medical management. Call Completed: No Discharging clinician: Hanna Humphrey Anticipated date of discharge: 05/03/17 - Patient Status Disposition: Home, Self-Care Condition: Good Functional capacity at discharge: independent ambulation Overall status at discharge: patient is back to baseline - Discharge Instructions Follow Up With: Ray Corrigan MD [Primary Care Provider] - 05/09/17 11:30 am Additional Instructions: Please follow up with cardiology as scheduled and with your PCP in the next 7- 10 days. Return to the ER as needed for any other problems or concerns or if your symptoms return or worsen. Take your medications as directed. Your new medications have been called in to [facility], please take your night doses tonight. Resume your normal routine and diet as tolerated. - Diet and Activity Activity: increase activity as tolerated Diet: advance to your usual diet Interval History: Please see assessment and plan for hospital course. Hospital course: Mr. Nichols is a 81 year old male - Time Spent with Patient Total time spent providing and/or coordinating discharge services: Less than 30 minutes - Constitutional Vitals: Temp Pulse Resp BP Pulse Ox 98.2 F 76 16 126/73 96 05/03/17 10:57 05/03/17 10:57 05/03/17 11:03 05/03/17 10:57 05/03/17 11:03 General appearance: Present: cooperative, mild distress, A&O X 3, pleasant, no acute distress, answers questions appropriately - Head Head exam: Present: atraumatic, normal inspection, normocephalic - Eye Eye exam: Present: normal appearance, conjuntiva pink, sclera anicteric - Neck Neck exam general surgery: Present: normal inspection, supple, trachea midline. Absent: lymphadenopathy, tenderness - Respiratory Respiratory exam: Present: CTAB. Absent: accessory muscle use, rales, rhonchi, wheezes - Cardiovascular Cardiovascular exam: Present: RRR, +S1, +S2. Absent: diastolic murmur, gallop, rubs, systolic murmur - GI/Abdominal GI/Abdominal exam: Present: distended, normal bowel sounds, soft, no peritoneal signs. Absent: hepatomegaly, tenderness - Extremities Exam Extremities exam: Present: normal capillary refill, normal inspection, warm, radial pulses palpable and symmetrical. Absent: calf tenderness, cyanotic, pedal edema, tenderness - Neurological Exam Neurological exam: Present: alert, oriented X3, no focal deficits. Absent: facial droop, speech deficit - Skin Skin exam: Present: dry, intact, normal color, warm. Absent: rash
--- NOTE | 2017-05-03 16:22 | Electrocardiograph Report ---
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
[2017-05-03] MEDS ORDERED: Ranolazine 500 MG TAB.ER.12H PO SCH (21:00)
[2017-05-06] MEDS ORDERED: *HR* Warfarin 7.5 MG TABLET PO SCH (18:00)
== END 2017-05-03 15:30 | disposition home or self-care (01) ==
LOC: EMEROO 13:14 → 3BNU 13:14
PROVIDERS: ADMIT Hospitalist; ATTEND Registered Nurse

== ENCOUNTER 2017-11-16 11:57 | Inpatient (IN) ==
[2017-11-16] MEDS ORDERED: 0.9 % Sodium Chloride 1,000 ML IVC ONE (12:07)
[2017-11-16] MEDS ORDERED: Isovue-370 500 ML INFUS..BTL IV ONE (12:07)
--- NOTE | 2017-11-16 12:35 | Emergency Department Note ---
Disposition Clinical Impression: Multifocal pneumonia Disposition: Admitted As Inpatient Condition: Good Referrals: Ray Corrigan MD [Primary Care Provider] - Forms: ED Satisfaction Letter Time of Disposition: 14:50 General Adult HPI - General Chief complaint: ED Shortness of Breath/Dyspnea Stated complaint: SIERRA-from Cards Time Seen by Provider: 11/16/17 12:06 Source: patient Limitations: no limitations Nursing Notes Reviewed: Yes Vital Signs Reviewed: Yes - History of Present Illness HPI Narrative: 82 year old male ronaldo ot the ED from the caridology office due hypoxia. he wear 2lNC at all time and was 87% on 2LNC at that cards offie an they incraesed it to 3LNC and it came back up to 95%. PAtinet states taht he has had a productive green sputum cough and also has a feer of 100.7F for us today. He has had pnuemoina in the past and htis feels simlair to the episode sin the past and it we have had to incraese his oxygen requuiremnt to 4-5LNC for 92%. Pastient denies ches tpain or nausea, or vomitting, or abdonia pain, or uti symptoms. States that he does feel more weak than usual and deconditioned. Pain Scale: 10 - Related Data Home Medications Medication Instructions Recorded Confirmed Albuterol Neb [Proventil Neb] 2.5 mg IH Q4HR PRN 01/27/15 10/19/17 Tiotropium [place] [Spiriva] 18 mcg IH DAILY 01/27/15 10/19/17 Budesonide/Formoterol 160/4.5 2 puff IH BIDR 04/20/15 10/19/17 [Symbicort] Albuterol Sulfate [Albuterol 2 puff IH Q4H PRN 10/02/16 10/19/17 Inhaler] Atorvastatin [Lipitor] 40 mg PO HS 10/02/16 10/19/17 Fluticasone Propionate Nasal 50 mcg NS BID PRN 05/01/17 10/19/17 [Flonase] HYDROcodone/Acet 5/325 mg [[place] 1 tab PO Q6H PRN 05/01/17 10/19/17 5-325 mg] Metoprolol Succinate [Toprol Xl] 25 mg PO DAILY 10/19/17 10/19/17 Warfarin [Coumadin] 2.5 mg PO 1800 10/19/17 10/19/17 Previous Rx's Medication Instructions Recorded Clopidogrel [Plavix] 75 mg PO DAILY #30 tablet 10/04/16 Allergies Allergy/AdvReac Type Severity Reaction Status Date / Time nitroglycerin Allergy Mild Hypotension Verified 11/16/17 11:59 aspirin [ASA] AdvReac Unknown Nose Bleed Verified 11/16/17 11:59 doxycycline AdvReac Redness of Verified 11/16/17 11:59 Skin ranolazine [From Ranexa] AdvReac Fatigued Verified 11/16/17 11:59 Constitutional: Reports: fever, chills, weakness. Denies: weight change Eyes: Denies: eye pain, eye discharge, vision change ENT ED: Denies: ear pain, throat pain, dental pain, hearing loss, epistaxis, congestion, dysphagia Cardiovascular: Denies: chest pain, palpitations, dyspnea on exertion, edema, syncope Respiratory: Reports: cough. Denies: dyspnea, wheezes, hemoptysis, stridor Gastrointestinal: Denies: abdominal pain, nausea, vomiting, diarrhea, constipation, hematemesis, melena, hematochezia Genitourinary: Denies: urgency, dysuria, frequency, hematuria Musculoskeletal: Denies: back pain, neck pain, arthralgia, myalgia Integumentary: Denies: rash, abrasion, lesions Neurological: Denies: headache, weakness, numbness, paresthesias, confusion, abnormal gait, vertigo Psychiatric: Denies: anxiety, depression, suicidal thoughts, homicidal thoughts , auditory hallucinations, visual hallucinations Endocrine: Denies: fatigue Hematological/Lymphatic: Denies: easy bleeding, easy bruising Allergic/Immunologic: Denies: facial swelling, urticaria Past Medical History - Past Medical History Medical history: Reports: arthritis, asthma, atrial fibrillation, coronary artery disease, DVT, hyperlipidemia, myocardial infarction, TIA Surgical history: Reports: angioplasty/stent, coronary bypass (CABG) Psychiatric history: Reports: no psych history - Social History Smoking Status: Never smoker Smokeless Tobacco Status: No Alcohol use: Reports: none Drug use: Reports: none Physical Exam - General Limitations: no limitations General appearance: alert, anxious, in distress - Head Head exam: atraumatic, normocephalic, normal inspection - Eye Eye exam: Present: normal appearance, PERRL, EOMI - Expanded Eye Exam Pupils: Bilateral: reactive - ENT ENT exam: normal exam, normal oropharynx, mucous membranes moist - Expanded ENT Exam External ear exam: Present: normal external inspection Mouth exam: Present: normal external inspection Teeth exam: Present: normal inspection Throat exam: Present: normal inspection - Neck Neck exam: Present: normal inspection, full ROM, trachea midline - Chest Chest inspection: Present: normal inspection, symmetric chest wall rise - Respiratory Respiratory exam: Present: wheezes. Absent: respiratory distress, stridor, accessory muscle use, prolonged expiratory phase - Cardiovascular Cardiovascular exam: Present: regular rate, normal rhythm, normal heart sounds - Abdominal Exam Abdominal exam: Present: soft, Non-Tender. Absent: tenderness, distention, guarding, rebound, rigidity - Extremities Exam Extremities exam: Present: normal inspection, full ROM. Absent: tenderness, pedal edema - Expanded Upper Extremity Exam Shoulder exam: Present: normal inspection, full ROM Arm exam: Present: normal inspection, full ROM Elbow exam: Present: normal inspection, full ROM Forearm/Wrist exam: Present: normal inspection, full ROM Hand exam: Present: normal inspection, full ROM Vascular exam: Normal: capillary refill, radial pulse - Expanded Lower Extremity Exam Hip/Pelvis exam: Present: normal inspection, full ROM Upper leg exam: Present: normal inspection, full ROM Knee exam: Present: normal inspection, full ROM Lower leg exam: Present: normal inspection, full ROM Ankle exam: Present: normal inspection, full ROM Foot/toe exam: Present: normal inspection, full ROM Neurovascular/Tendon exam: Absent: motor deficit, sensory deficit, tendon deficit - Back Exam Back exam: Present: normal inspection, full ROM. Absent: tenderness - Neurological Exam Neurological exam: Present: alert, oriented X3 - Expanded Neurological Exam Patient oriented to: Present: person, place, time Coma Scale Eye Opening: Spontaneous Coma Scale Motor Response: Obeys Commands Coma Scale Verbal Response: Oriented Coma Scale Total: 15 - Psychiatric Psychiatric exam: Present: normal affect, normal mood - Skin Skin exam: Present: warm, dry, intact, normal color Course Course Narrative: we will do a sepsis workup on patinet likel Pnuemonia and CTA chest to rule out PE. And then admit to [facility]. WE will start levaquin and breathing treatment nows. - Reevaluation(s) Reevaluation #1: updated patient and famiy and they are agreeable to admission Time: 14:50 - Consultations Consultation #1: dicussed case with Dr. Heck and she has accepted patient to her service Time: 14:50 Vital Signs Temperature 100.7 F H 11/16/17 11:59 Pulse Rate 81 11/16/17 11:59 Respiratory Rate 26 11/16/17 11:59 Blood Pressure 108/68 11/16/17 11:59 O2 Sat by Pulse Oximetry 98 11/16/17 11:59 Temperature 100.7 F H 11/16/17 12:10 Pulse Rate 84 11/16/17 13:10 Respiratory Rate 16 11/16/17 13:10 Blood Pressure 121/77 11/16/17 13:10 O2 Sat by Pulse Oximetry 95 11/16/17 13:10 Oxygen Delivery Oxygen Delivery Nasal Cannula Medical Decision Making - Medical Records Medical records reviewed: Yes I reviewed the patient's medical records. - Lab Data Lab results reviewed: Yes I reviewed the patient's lab results. Result diagrams: 11/16/17 12:07 11/16/17 12:07 Lab Results 11/16/17 11/16/17 11/16/17 Range/Units 12:07 12:07 12:07 WBC 16.5 H (4.3-11.1) K/mcL RBC 4.25 (4.19-5.50) M/mcL Hgb 12.7 L (12.9-16.9) g/dL Hct 37.8 (37.5-50.1) % MCV 88.9 (83.0-100.0) fL MCH 29.9 (28.0-33.3) pg MCHC 33.6 (31.6-35.5) g/dL RDW 14.4 (11.5-14.5) % Plt Count 165 (140-400) K/mcL MPV 9.7 (9.4-12.4) fL Immature Gran % 1.3 (0-4) % Seg Neutrophils % 84.2 % Lymphocytes % 6.7 % Monocytes % 7.6 % Eosinophils % 0.0 % Basophils % 0.2 % Neutrophils # 13.9 H (1.6-8.9) K/mcL Lymphocytes # 1.1 (0.6-4.6) K/mcL Monocytes # 1.3 (0.0-1.3) K/mcL Eosinophils # 0.0 (0.0-0.6) K/mcL Basophils # 0.0 (0.0-0.2) K/mcL PT 25.7 H (9.4-12.1) Seconds INR 2.3 APTT 42.9 H (26.0-36.0) Seconds Sodium 134 L (136-145) mEq/L Potassium 4.1 (3.5-5.1) mEq/L Chloride 98 (98-107) mEq/L Carbon Dioxide 28 (23-29) mEq/L BUN 21 (8-23) mg/dL Creatinine 1.09 (0.70-1.30) mg/dL Est GFR ( Amer) > 60 (> 60) Est GFR (Non-Af Amer) > 60 (> 60) BUN/Creatinine Ratio 19 (6-26) Glucose 103 (70-105) mg/dL Calculated Osmolality 281 (280-300) Lactic Acid (0.5-2.2) mmol/L Calcium 9.2 (8.6-10.3) mg/dL Phosphorus 2.4 L (2.7-4.5) mg/dL Magnesium 1.8 (1.6-2.6) mg/dL Total Bilirubin 1.7 H (0.3-1.0) mg/dL Direct Bilirubin 0.3 H (0.0-0.2) mg/dL Indirect Bilirubin 1.4 H (0.0-1.2) mg/dL AST 18 (13-39) Units/L ALT 19 (7-52) Units/L Alkaline Phosphatase 54 (34-104) Units/L Troponin I 0.06 H* (< 0.04) ng/mL B-Natriuretic Peptide (Less than 100) pg/mL Serum Total Protein 7.4 (6.4-8.9) g/dL Albumin 4.0 (3.5-5.7) g/dL Globulin 3.4 (2.4-3.5) g/dL Albumin/Globulin Ratio 1.2 (1.1-2.2) Lipase 8 L (11-82) Units/L Urine Color (Yellow) Urine Clarity (Clear) Urine pH (5.0-8.0) pH Units Ur Specific [place] (1.010-1.025) Urine Protein (Neg-Trace) mg/dL Urine Glucose (UA) (Normal) mg/dL Urine Ketones (Negative) mg/dL Urine Blood (Negative) Urine Nitrite (Negative) Urine Bilirubin (Negative) Urine Urobilinogen (Normal) mg/dL Ur Leukocyte Esterase (Negative) Urine Microscopic RBC (0-3) per hpf Urine Microscopic WBC (0-3) per hpf Ur Squamous Epith Cells (None-Few) per lpf Urine Bacteria (None-Few) per hpf Hyaline Casts (None-Few) per lpf Ur Culture Indicated? (NO) 11/16/17 11/16/17 11/16/17 Range/Units 12:07 12:20 12:44 WBC (4.3-11.1) K/mcL RBC (4.19-5.50) M/mcL Hgb (12.9-16.9) g/dL Hct (37.5-50.1) % MCV (83.0-100.0) fL MCH (28.0-33.3) pg MCHC (31.6-35.5) g/dL RDW (11.5-14.5) % Plt Count (140-400) K/mcL MPV (9.4-12.4) fL Immature Gran % (0-4) % Seg Neutrophils % % Lymphocytes % % Monocytes % % Eosinophils % % Basophils % % Neutrophils # (1.6-8.9) K/mcL Lymphocytes # (0.6-4.6) K/mcL Monocytes # (0.0-1.3) K/mcL Eosinophils # (0.0-0.6) K/mcL Basophils # (0.0-0.2) K/mcL PT (9.4-12.1) Seconds INR APTT (26.0-36.0) Seconds Sodium (136-145) mEq/L Potassium (3.5-5.1) mEq/L Chloride (98-107) mEq/L Carbon Dioxide (23-29) mEq/L BUN (8-23) mg/dL Creatinine (0.70-1.30) mg/dL Est GFR ( Amer) (> 60) Est GFR (Non-Af Amer) (> 60) BUN/Creatinine Ratio (6-26) Glucose (70-105) mg/dL Calculated Osmolality (280-300) Lactic Acid 1.2 (0.5-2.2) mmol/L Calcium (8.6-10.3) mg/dL Phosphorus (2.7-4.5) mg/dL Magnesium (1.6-2.6) mg/dL Total Bilirubin (0.3-1.0) mg/dL Direct Bilirubin (0.0-0.2) mg/dL Indirect Bilirubin (0.0-1.2) mg/dL AST (13-39) Units/L ALT (7-52) Units/L Alkaline Phosphatase (34-104) Units/L Troponin I (< 0.04) ng/mL B-Natriuretic Peptide 115 H (Less than 100) pg/mL Serum Total Protein (6.4-8.9) g/dL Albumin (3.5-5.7) g/dL Globulin (2.4-3.5) g/dL Albumin/Globulin Ratio (1.1-2.2) Lipase (11-82) Units/L Urine Color Dark Yellow (Yellow) Urine Clarity Clear (Clear) Urine pH 6.0 (5.0-8.0) pH Units Ur Specific [place] 1.022 (1.010-1.025) Urine Protein 100 H (Neg-Trace) mg/dL Urine Glucose (UA) Normal (Normal) mg/dL Urine Ketones Negative (Negative) mg/dL Urine Blood Trace H (Negative) Urine Nitrite Negative (Negative) Urine Bilirubin Negative (Negative) Urine Urobilinogen Normal (Normal) mg/dL Ur Leukocyte Esterase Negative (Negative) Urine Microscopic RBC 5-15 H (0-3) per hpf Urine Microscopic WBC 0-3 (0-3) per hpf Ur Squamous Epith Cells Moderate H (None-Few) per lpf Urine Bacteria None Seen (None-Few) per hpf Hyaline Casts None Seen (None-Few) per lpf Ur Culture Indicated? NO (NO) - Radiology Data Radiology results reviewed: Yes I reviewed the patient's radiology results. - EKG Data EKG #1 EKG attestation: Yes I reviewed and interpreted this EKG. EKG results narrative: electronsically paced with rate of 85. One PVC no changr from 05/02/17. NO STEMI. 1217
[2017-11-16] MEDS ORDERED: Ipratropium/Albuterol Neb 3 ML IH ONE (12:36)
[2017-11-16] MEDS ORDERED: Levofloxacin 750 MG/150 ML 750 MG/150 ML BAG IVPB ONE (12:36)
[2017-11-16] MEDS ORDERED: methylPREDNISolone 125 MG/2 ML VIAL IVP ONE (12:36)
[2017-11-16 12:46] LABS: Bilirubin,Urine Negative (Negative); Blood,Urine Trace (Negative); Clarity,Urine Clear (Clear); Color,Urine Dark Yellow (Yellow); Glucose,Urine (UA) Normal (Normal); Ketones,Urine Negative (Negative); Leukocyte Esterase,Urine Negative (Negative); Nitrite,Urine Negative (Negative); Protein,Urine 100 mg/dL (Neg-Trace); Specific Gravity,Urine 1.022 (1.010-1.025); Urobilinogen,Urine Normal (Normal)
[2017-11-16 12:48] LABS: Bacteria,Urine None Seen per hpf (None-Few); Hyaline Casts,Urine None Seen per lpf (None-Few); Squamous Epithelial Cell,Urine Moderate per lpf (None-Few); WBC,Urine 0-3 per hpf (0-3)
[2017-11-16 13:07] LABS: Basophils % 0.2 %; Hematocrit 37.8 % (37.5-50.1); Hemoglobin 12.7 g/dL (12.9-16.9); Immature Granulocytes % 1.3 % (0-4); Lymphocytes # 1.1 K/mcL (0.6-4.6); Lymphocytes % 6.7 %; Mean Corpuscular HGB Conc 33.6 g/dL (31.6-35.5); Mean Corpuscular Hemoglobin 29.9 pg (28.0-33.3); Mean Corpuscular Volume 88.9 fL (83.0-100.0); Mean Platelet Volume 9.7 fL (9.4-12.4); Monocytes # 1.3 K/mcL (0.0-1.3); Monocytes % 7.6 %; Neutrophils # 13.9 K/mcL (1.6-8.9); Platelet Count 165 K/mcL (140-400); Red Blood Count 4.25 M/mcL (4.19-5.50); Red Cell Distribution Width 14.4 % (11.5-14.5); Segmented Neutrophils % 84.2 %
[2017-11-16 13:23] LABS: INR 2.3; Prothrombin Time 25.7 Seconds (9.4-12.1)
[2017-11-16 13:25] LABS: Activated Partial Thrombo Time 42.9 Seconds (26.0-36.0)
[2017-11-16 13:26] LABS: Alanine Aminotransferase 19 Units/L (7-52); Albumin/Globulin Ratio 1.2 (1.1-2.2); Alkaline Phosphatase 54 Units/L (34-104); Aspartate Amino Transferase 18 Units/L (13-39); BUN/Creatinine Ratio 19 (6-26); Bilirubin,Direct 0.3 mg/dL (0.0-0.2); Bilirubin,Indirect 1.4 mg/dL (0.0-1.2); Bilirubin,Total 1.7 mg/dL (0.3-1.0); Blood Urea Nitrogen 21 mg/dL (8-23); Calcium 9.2 mg/dL (8.6-10.3); Carbon Dioxide 28 mEq/L (23-29); Chloride 98 mEq/L (98-107); Globulin 3.4 g/dL (2.4-3.5); Glucose 103 mg/dL (70-105); Lipase 8 Units/L (11-82); Magnesium 1.8 mg/dL (1.6-2.6); Osmolality,Calculated 281 (280-300); Phosphorous 2.4 mg/dL (2.7-4.5); Potassium 4.1 mEq/L (3.5-5.1); Sodium 134 mEq/L (136-145); Total Protein 7.4 g/dL (6.4-8.9); eGFR For African Americans > 60 (> 60); eGFR For Non-African Americans > 60 (> 60)
[2017-11-16 13:33] LABS: Troponin I 0.06 ng/mL (< 0.04)
[2017-11-16] MEDS ORDERED: Aspirin 325 MG TABLET PO ONE (13:38)
--- NOTE | 2017-11-16 16:51 | Internal Med History&Physical ---
Date of Encounter: 11/16/17 Time of Encounter: 16:51 Internal Medicine - H&P: HPI Chief complaint: cough History of present illness: Mr. Nichols is a 82 year old male prentse ot the ED from the cardiology office due hypoxia. he wear 2lNC at all time and was 87% on 2LNC at that cards office an they increased it to 3LNC and it came back up to 95%. Patient states taht he has had a productive green sputum cough and also has a feer of 100.7F for us today. He has had pneumonia in the past and htis feels similar to the episode sin the past and it we have had to increase his oxygen requirement to 4-5LNC for 92%. Patient denies chest pain or nausea, or vomiting, or abdominal pain, or uti symptoms. States that he does feel more weak than usual and de conditioned. Past Med Surg Social Fam HX - Past Medical History Medical history: arthritis, asthma, atrial fibrillation, coronary artery disease , DVT, hyperlipidemia, myocardial infarction, TIA Psychiatric history: no psych history - Past Surgical History Surgical History: angioplasty/stent, coronary bypass (CABG) - Social History Smoking Status: Never smoker Smokeless Tobacco Status: No Alcohol use: none Drug use: none - Family History Mother Living Status: Father Living Status: Hx Family Cardiac Disorders: Yes (CT) Daughter Adopted: No Family Member Ethnicity: Non- Living Status: Still Living Hx Family Cardiac Disorders: Yes (HYPERTENTION) Internal Medicine - H&P: Meds Albuterol Sulfate [Albuterol Inhaler] 2 puff IH Q4H PRN 10/02/16 [History] Atorvastatin [Lipitor] 40 mg PO HS 10/02/16 [History] Clopidogrel [Plavix] 75 mg PO DAILY #30 tablet 10/04/16 [Rx] Fluticasone Propionate Nasal [Flonase] 50 mcg NS BID PRN 05/01/17 [History] HYDROcodone/Acet 5/325 mg [[place] 5-325 mg] 1 tab PO Q6H PRN 05/01/17 [History] Metoprolol Succinate [Toprol Xl] 25 mg PO DAILY 10/19/17 [History] Warfarin [Coumadin] 2.5 mg PO TUSA 10/19/17 [History] Budesonide/Formoterol 160/4.5 [Symbicort 160/4.5] 2 puff IH BID 11/16/17 [ History] Tiotropium [Spiriva] 18 mcg IH DAILY 11/16/17 [History] Warfarin Sodium 5 mg PO SUMOWETHFR 11/16/17 [History] levoFLOXacin [Levaquin] 750 mg PO DAILY #4 tablet 11/18/17 [Rx] predniSONE [PredniSONE] 10 mg PO DAILY #66 tablet 11/18/17 [Rx] 3 Allergy/AdvReac Type Severity Reaction Status Date / Time nitroglycerin Allergy Mild Hypotension Verified 11/16/17 11:59 doxycycline AdvReac Redness of Verified 11/16/17 11:59 Skin ranolazine [From Ranexa] AdvReac Fatigued Verified 11/16/17 11:59 All Systems PM: A 10-system review of systems was performed and is negative for pertinent findings except as documented above in the HPI. - Constitutional Constitutional: no chills, no fever(s), no night sweats - Cardiovascular Cardiovascular ROS IM: dyspnea, no chest pain, no diaphoresis, no lightheadedness, no palpitations, no syncope - Constitutional Vitals: Temp Pulse Resp BP Pulse Ox 98 F 83 16 111/71 98 11/16/17 16:25 11/16/17 16:25 11/16/17 16:25 11/16/17 16:25 11/16/17 16:25 General appearance: Present: A&O X 3 - Head Head exam: Present: atraumatic, normocephalic - Neck Neck exam general surgery: Present: supple, trachea midline. Absent: lymphadenopathy - Respiratory Respiratory exam: Present: rhonchi. Absent: accessory muscle use, rales, wheezes - Cardiovascular Cardiovascular exam: Present: RRR, +S1, +S2. Absent: diastolic murmur, gallop, rubs, systolic murmur - GI/Abdominal GI/Abdominal exam: Present: normal bowel sounds, soft, no peritoneal signs. Absent: distended, tenderness - Extremities Exam Extremities exam: Present: warm, radial pulses palpable and symmetrical. Absent : calf tenderness, cyanotic, pedal edema Internal Med - H&P Results - Labs CBC & Chem 7: 11/18/17 00:41 11/18/17 00:41 - Assessment and plan (1) Community acquired bacterial pneumonia Status: Acute Assessment and plan: SOB due to *Pneumonia: - Blood Cx - Urine Legionella antigen - Antibiotics - CBCD, CMP in AM - Tylenol 650 mg PO q 4-6 hr PRN pain or fever - Home meds - check the list and restart accordingly - Heparin 5000 U SQ BID (2) CAD (coronary artery disease) Status: Chronic Assessment and plan: We will cont home meds Qualifiers: Coronary Disease-Associated Artery/Lesion type: bypass graft [place] vs. transplanted heart: [place] heart Associated angina: angina presence unspecified Qualified Code(s): I25.810 - Atherosclerosis of coronary artery bypass graft(s) without angina pectoris (3) PAF (paroxysmal atrial fibrillation) Status: Chronic (4) DVT prophylaxis Status: Acute Assessment and plan: We will place SCDs - Time Spent With Patient Total time spent is greater than 50% in coordination of care (as documented) at patient's floor/unit and/or counseling patient:
[2017-11-16] MEDS ORDERED: Naloxone 0.4 MG/ML INJ IVP PRN (19:38)
[2017-11-16] MEDS ORDERED: Acetaminophen 325 MG TABLET PO PRN (19:44)
[2017-11-16] MEDS ORDERED: Fluticasone Propionate Nasal 50 MCG/SPRAY BOTTLE NS PRN (19:46)
[2017-11-16] MEDS: Budesonide/Formoterol 160/4.5 MDI IH SCH (21:57)
[2017-11-16] MEDS: 0.9 % Sodium Chloride 1,000 ML IVC SCH (22:24)
[2017-11-16] MEDS: *HR* HYDROcodone/Acet 5/325 mg TABLET PO PRN (22:24)
[2017-11-17 02:04] LABS: Activated Partial Thrombo Time 45.2 Seconds (26.0-36.0); INR 2.1; Prothrombin Time 23.5 Seconds (9.4-12.1)
[2017-11-17 02:13] LABS: Alanine Aminotransferase 15 Units/L (7-52); Albumin 3.6 g/dL (3.5-5.7); Albumin/Globulin Ratio 1.2 (1.1-2.2); Alkaline Phosphatase 51 Units/L (34-104); Aspartate Amino Transferase 15 Units/L (13-39); BUN/Creatinine Ratio 23 (6-26); Bilirubin,Total 0.7 mg/dL (0.3-1.0); Blood Urea Nitrogen 20 mg/dL (8-23); Calcium 8.8 mg/dL (8.6-10.3); Carbon Dioxide 25 mEq/L (23-29); Chloride 106 mEq/L (98-107); Chol/HDL Ratio 2.9 (0-4.9); Cholesterol 126 mg/dL (< 200); Globulin 3.1 g/dL (2.4-3.5); Glucose 223 mg/dL (70-105); HDL Cholesterol 44 mg/dL (40-59); LDL Cholesterol,Calculated 66 mg/dL (0-99); Osmolality,Calculated 294 (280-300); Phosphorous 1.6 mg/dL (2.7-4.5); Potassium 3.8 mEq/L (3.5-5.1); Sodium 137 mEq/L (136-145); Total Protein 6.7 g/dL (6.4-8.9); Triglycerides 81 mg/dL (< 150); eGFR For African Americans > 60 (> 60); eGFR For Non-African Americans > 60 (> 60)
[2017-11-17 02:25] LABS: Basophils % 0.1 %; Hematocrit 36.3 % (37.5-50.1); Hemoglobin 12.1 g/dL (12.9-16.9); Immature Granulocytes % 3.1 % (0-4); Lymphocytes # 0.5 K/mcL (0.6-4.6); Lymphocytes % 3.4 %; Mean Corpuscular HGB Conc 33.3 g/dL (31.6-35.5); Mean Corpuscular Hemoglobin 29.7 pg (28.0-33.3); Mean Platelet Volume 9.6 fL (9.4-12.4); Monocytes # 0.3 K/mcL (0.0-1.3); Monocytes % 2.4 %; Neutrophils # 12.6 K/mcL (1.6-8.9); Platelet Count 143 K/mcL (140-400); Red Blood Count 4.08 M/mcL (4.19-5.50); Red Cell Distribution Width 14.2 % (11.5-14.5)
[2017-11-17] MEDS ORDERED: *HR* Heparin 5,000 UNIT/ML VIAL SQ SCH (06:00)
[2017-11-17] MEDS: 0.9 % Sodium Chloride 1,000 ML IVC SCH (06:01)
--- NOTE | 2017-11-17 07:06 | Electrocardiograph Report ---
[place] [facility] Test Date: 2017-11-16 Pat Name: Randy Nichols Department: 102 Room: 2NE16 Gender: M [employer]: : [id number] Requested By: Rose Marie Newman Order Number: [id number] Reading MD: Nilda Monge Measurements Intervals [place] Rate: 85 P: -29 AL: 253 QRS: 257 QRSD: 178 T: 61 QT: 385 QTc: 427 Interpretive Statements ELECTRONIC VENTRICULAR PACEMAKER ABNORMAL RHYTHM ECG Electronically Signed On 11-17-2017 7:05:11 EDT by Nilda Monge
[2017-11-17] MEDS: Budesonide/Formoterol 160/4.5 MDI IH SCH ×2 (08:03→22:21)
[2017-11-17 08:04] LABS: INR 2.2
--- NOTE | 2017-11-17 08:35 | Internal Med Progress Note ---
<Alex Benoit - Last Filed: 11/17/17 11:01> Date of Encounter: 11/17/17 Time of Encounter: 09:50 - Assessment and plan (1) Community acquired bacterial pneumonia Current Visit: Yes Status: Acute Assessment and plan: SOB due to Acute CAP Improved, now afebrile with decreased WBC and HR - Blood Cx currently pending - Urine Legionella antigen pending - Levaquin Day 2 - CBCD, CMP in AM - Tylenol 650 mg PO q 4-6 hr PRN pain or fever (2) CAD (coronary artery disease) Current Visit: Yes Status: Chronic Assessment and plan: Stable Continue ASA, Statin, Plavix, BB Qualifiers: Coronary Disease-Associated Artery/Lesion type: bypass graft [place] vs. transplanted heart: [place] heart Associated angina: angina presence unspecified Qualified Code(s): I25.810 - Atherosclerosis of coronary artery bypass graft(s) without angina pectoris (3) PAF (paroxysmal atrial fibrillation) Current Visit: No Status: Chronic Assessment and plan: Stable, rate controlled Continue warfarin, pharmacy to dose Current INR 2.2 (4) DVT prophylaxis Current Visit: No Status: Acute Assessment and plan: Patient is on warfarin with therapeutic INR (5) Acute exacerbation of chronic obstructive airways disease Current Visit: Yes Status: Acute Assessment and plan: Acute on chronic obstructive pulmonary disease The patient has required increased O2, increased sputum production, and SOB There is prominent wheezing on exam, which was not previously documented He is being treated for CAP with levaquin I will add Solu-medrol - Time Spent With Patient Total time spent is greater than 50% in coordination of care (as documented) at patient's floor/unit and/or counseling patient: - Subjective Interval history: The patient is seen and examined at bedside. He explained that he feels somewhat ashamed of using his oxygen in public, which is one of the reasons he typically tried to avoid doing so. He does say that he is feeling better today that he was previously, however on exam, in addition to prominent rales which remain, he also has significant expiratory wheezing. - Constitutional Vitals: Temp Pulse Resp BP Pulse Ox 97.4 F L 68 18 120/76 98 11/17/17 06:35 11/17/17 06:35 11/17/17 06:35 11/17/17 06:35 11/17/17 06:35 General appearance: Present: A&O X 3 Exam: Gen: Vitals noted. No acute distress. HEENT: PERRL/EOMI, oropharynx clear, Normocephalic, atraumatic Neck: Supple. No adenopathy. Cardiac: RRR, no murmur, +S1/S2 Pulmonary: B/L crackles heard prominently with superimposed expiratory wheezing throughout Abdomen: soft, nontender, no guarding Back: Nontender throughout. MSK: ROM intact, no joint swelling noted Extremities: no BLE edema, nontender calf, no cyanosis or clubbing Neuro: moves all extremities, no focal deficits Psych: Appropriate mood and behavior Internal Medicine: Result - Labs CBC & Chem 7: 11/17/17 01:32 11/17/17 01:32 Labs: Short CBC 11/17/17 Range/Units 01:32 WBC 13.9 H (4.3-11.1) K/mcL Hgb 12.1 L (12.9-16.9) g/dL Hct 36.3 L (37.5-50.1) % Plt Count 143 (140-400) K/mcL Neutrophils # 12.6 H (1.6-8.9) K/mcL BMP 11/17/17 01:32 Sodium 137 Potassium 3.8 Chloride 106 Carbon Dioxide 25 BUN 20 Creatinine 0.88 Glucose 223 H Calcium 8.8 Cardiac Enzymes 11/16/17 11/17/17 11/17/17 Range/Units 20:22 01:32 07:41 Troponin I < 0.03 0.03 < 0.03 (< 0.04) ng/mL Liver Function 11/17/17 Range/Units 01:32 Total Bilirubin 0.7 (0.3-1.0) mg/dL AST 15 (13-39) Units/L ALT 15 (7-52) Units/L Alkaline Phosphatase 51 (34-104) Units/L Albumin 3.6 (3.5-5.7) g/dL - ABG Interpretation ABG results: PT/INR, D-dimer PT 24.0 Seconds (9.4-12.1) H 11/17/17 07:41 - VTE Documentation of Mechanical Device: Intermittent pneumatic compression device Consult Discharge Plan - Plan Referrals: Ray Corrigan MD [Primary Care Provider] - <Da Segura H - Last Filed: 11/17/17 12:55> Date of Encounter: 11/17/17 - Assessment and plan (1) Community acquired bacterial pneumonia Current Visit: Yes Status: Acute (2) CAD (coronary artery disease) Current Visit: Yes Status: Chronic Qualifiers: Coronary Disease-Associated Artery/Lesion type: bypass graft [place] vs. transplanted heart: [place] heart Associated angina: angina presence unspecified Qualified Code(s): I25.810 - Atherosclerosis of coronary artery bypass graft(s) without angina pectoris (3) DVT prophylaxis Current Visit: No Status: Acute (4) PAF (paroxysmal atrial fibrillation) Current Visit: No Status: Chronic (5) Acute exacerbation of chronic obstructive airways disease Current Visit: Yes Status: Acute - Time Spent With Patient Total time spent is greater than 50% in coordination of care (as documented) at patient's floor/unit and/or counseling patient: - Constitutional Vitals: Temp Pulse Resp BP Pulse Ox 97.3 F L 69 18 125/76 99 11/17/17 10:45 11/17/17 10:45 11/17/17 10:45 11/17/17 10:45 11/17/17 10:45 Internal Medicine: Result - Labs CBC & Chem 7: 11/17/17 01:32 11/17/17 01:32 Labs: Short CBC 11/17/17 Range/Units 01:32 WBC 13.9 H (4.3-11.1) K/mcL Hgb 12.1 L (12.9-16.9) g/dL Hct 36.3 L (37.5-50.1) % Plt Count 143 (140-400) K/mcL Neutrophils # 12.6 H (1.6-8.9) K/mcL BMP 11/17/17 01:32 Sodium 137 Potassium 3.8 Chloride 106 Carbon Dioxide 25 BUN 20 Creatinine 0.88 Glucose 223 H Calcium 8.8 Cardiac Enzymes 11/16/17 11/17/17 11/17/17 Range/Units 20:22 01:32 07:41 Troponin I < 0.03 0.03 < 0.03 (< 0.04) ng/mL Liver Function 11/17/17 Range/Units 01:32 Total Bilirubin 0.7 (0.3-1.0) mg/dL AST 15 (13-39) Units/L ALT 15 (7-52) Units/L Alkaline Phosphatase 51 (34-104) Units/L Albumin 3.6 (3.5-5.7) g/dL - ABG Interpretation ABG results: PT/INR, D-dimer PT 24.0 Seconds (9.4-12.1) H 11/17/17 07:41 - Attending Attestation Acute on chronic hypoxic respiratory failure secondary to acute COPD exacerbation due to sepsis from community-acquired pneumonia unknown agent Continue Levaquin day #2 Solu-Medrol was just started, continue oxygen therapy and DuoNeb's History of right lower extremity DVT after the surgical procedure, currently on Coumadin due to atrial fibrillation as well I examined this patient and my medical decision-making was reviewed with the Resident Physician. I agree with the documented findings, disposition and treatment plan as described except to the extent set forth below.
[2017-11-17] MEDS ORDERED: Tiotropium 18 MCG inhalation IH SCH (09:00)
[2017-11-17] MEDS: Levofloxacin 750 MG/150 ML 750 MG/150 ML BAG IVPB SCH (10:05)
[2017-11-17] MEDS: Metoprolol XL (24 HR) Succ 25 MG TAB.ER.24H PO SCH (10:05)
[2017-11-17] MEDS ORDERED: D5% in Water 1,000 ML IVC PRN (11:02)
[2017-11-17] MEDS ORDERED: Dextrose Gel 15 GM/37.5 ML TUBE PO PRN ×2 (11:02)
[2017-11-17] MEDS ORDERED: *HR* Dextrose 50 % in Water (Syg) 50 ML SYRINGE IVP PRN (11:02)
[2017-11-17] MEDS ORDERED: Albuterol 2.5 MG/3 ML NEBULIZER IH PRN (11:04)
[2017-11-17] MEDS: Ipratropium/Albuterol Neb 3 ML IH SCH ×3 (11:29→22:21)
[2017-11-17] MEDS: *HR* HYDROcodone/Acet 5/325 mg TABLET PO PRN (12:16)
[2017-11-17] MEDS: Insulin LISPRO 300 UNITS/3 ML VIAL SQ SCH ×2 (12:18→17:24)
[2017-11-17] MEDS: MethylPREDNISolone 40 MG/ML VIAL IVP SCH (17:23)
[2017-11-17] MEDS ORDERED: Warfarin perPT PO PRN (18:00)
[2017-11-17] MEDS ORDERED: *HR* Warfarin 5 MG TABLET PO ONE (18:00)
[2017-11-17] MEDS ORDERED: Insulin LISPRO 300 UNITS/3 ML VIAL SQ SCH (21:00)
[2017-11-18 01:17] LABS: Hemoglobin 11.5 g/dL (12.9-16.9); Lymphocytes # 0.4 K/mcL (0.6-4.6); Lymphocytes % 3.3 %; Mean Corpuscular HGB Conc 33.8 g/dL (31.6-35.5); Mean Corpuscular Hemoglobin 29.7 pg (28.0-33.3); Mean Corpuscular Volume 87.9 fL (83.0-100.0); Mean Platelet Volume 9.9 fL (9.4-12.4); Monocytes # 0.4 K/mcL (0.0-1.3); Neutrophils # 11.1 K/mcL (1.6-8.9); Platelet Count 176 K/mcL (140-400); Red Blood Count 3.87 M/mcL (4.19-5.50); Red Cell Distribution Width 14.6 % (11.5-14.5); Segmented Neutrophils % 90.7 %
[2017-11-18 01:23] LABS: INR 2.5; Prothrombin Time 27.2 Seconds (9.4-12.1)
[2017-11-18 01:37] LABS: BUN/Creatinine Ratio 27 (6-26); Blood Urea Nitrogen 28 mg/dL (8-23); Calcium 8.4 mg/dL (8.6-10.3); Carbon Dioxide 25 mEq/L (23-29); Chloride 108 mEq/L (98-107); Glucose 183 mg/dL (70-105); Osmolality,Calculated 302 (280-300); Potassium 3.9 mEq/L (3.5-5.1); Sodium 141 mEq/L (136-145); eGFR For African Americans > 60 (> 60); eGFR For Non-African Americans > 60 (> 60)
[2017-11-18] MEDS: MethylPREDNISolone 40 MG/ML VIAL IVP SCH ×2 (01:39→08:04)
[2017-11-18] MEDS: Ipratropium/Albuterol Neb 3 ML IH SCH ×2 (03:53→10:38)
[2017-11-18 06:39] VITALS: BP 119/74
[2017-11-18] MEDS: Metoprolol XL (24 HR) Succ 25 MG TAB.ER.24H PO SCH (08:04)
[2017-11-18] MEDS: Levofloxacin 750 MG/150 ML 750 MG/150 ML BAG IVPB SCH (08:04)
[2017-11-18] MEDS: Insulin LISPRO 300 UNITS/3 ML VIAL SQ SCH (08:13)
--- NOTE | 2017-11-18 08:23 | Internal Med Progress Note ---
Date of Encounter: 11/18/17 Time of Encounter: 08:21 - Assessment and plan (1) Acute exacerbation of chronic obstructive airways disease Current Visit: Yes Status: Acute Assessment and plan: Acute on chronic obstructive pulmonary disease The patient has required increased O2, increased sputum production, and SOB There is prominent wheezing on exam, which was not previously documented Currently on Levaquin and solu-medrol Duonebs + O2 as needed (2) Community acquired bacterial pneumonia Current Visit: Yes Status: Acute Assessment and plan: SOB due to Acute CAP Improved, now afebrile with decreased WBC and HR - Blood Cx currently negative - Urine Legionella antigen negative - Levaquin Day 3 - CBCD, CMP in AM - Tylenol 650 mg PO q 4-6 hr PRN pain or fever (3) CAD (coronary artery disease) Current Visit: Yes Status: Chronic Assessment and plan: Stable Continue ASA, Statin, Plavix, BB Qualifiers: Coronary Disease-Associated Artery/Lesion type: bypass graft [place] vs. transplanted heart: [place] heart Associated angina: angina presence unspecified Qualified Code(s): I25.810 - Atherosclerosis of coronary artery bypass graft(s) without angina pectoris (4) PAF (paroxysmal atrial fibrillation) Current Visit: No Status: Chronic Assessment and plan: Stable, rate controlled Continue warfarin, pharmacy to dose Current INR 2.5 (5) Hypophosphatemia Current Visit: Yes Status: Acute Assessment and plan: Replete phosphate with neutraphos (6) DVT prophylaxis Current Visit: No Status: Acute Assessment and plan: Patient is on warfarin with therapeutic INR (7) Sepsis Current Visit: Yes Status: Resolved Assessment and plan: Patient met sepsis criteria on admission Sepsis Criteria: Fever, leukocytosis, tachypnea. Source: CAP Resolved at this time Continue levaquin Qualifiers: Sepsis type: sepsis due to unspecified organism Qualified Code(s): A41.9 - Sepsis, unspecified organism - Time Spent With Patient Total time spent is greater than 50% in coordination of care (as documented) at patient's floor/unit and/or counseling patient: - Subjective Interval history: The patient is seen and examined at bedside. He explained that he feels somewhat ashamed of using his oxygen in public, which is one of the reasons he typically tried to avoid doing so. He does say that he is feeling better today that he was previously, however on exam, in addition to prominent rales which remain, he also has significant expiratory wheezing. - Constitutional Vitals: Temp Pulse Resp BP Pulse Ox 97.4 F L 73 18 119/74 98 11/18/17 06:35 11/18/17 06:35 11/18/17 06:35 11/18/17 06:35 11/18/17 06:35 General appearance: Present: A&O X 3 Exam: Gen: Vitals noted. No acute distress. HEENT: Normocephalic, atraumatic Neck: Supple. No adenopathy. Cardiac: RRR, no murmur, +S1/S2 Pulmonary: B/L crackles heard prominently with superimposed expiratory wheezing throughout Abdomen: soft, nontender, no guarding Back: Nontender throughout. MSK: ROM intact, no joint swelling noted Extremities: no BLE edema, nontender calf, no cyanosis or clubbing Neuro: moves all extremities, no focal deficits Psych: Appropriate mood and behavior Internal Medicine: Result - Labs CBC & Chem 7: 11/18/17 00:41 11/18/17 00:41 Labs: Short CBC 11/18/17 Range/Units 00:41 WBC 12.2 H (4.3-11.1) K/mcL Hgb 11.5 L (12.9-16.9) g/dL Hct 34.0 L (37.5-50.1) % Plt Count 176 (140-400) K/mcL Neutrophils # 11.1 H (1.6-8.9) K/mcL BMP 11/18/17 00:41 Sodium 141 Potassium 3.9 Chloride 108 H Carbon Dioxide 25 BUN 28 H Creatinine 1.02 Glucose 183 H Calcium 8.4 L Cardiac Enzymes 11/17/17 Range/Units 07:41 Troponin I < 0.03 (< 0.04) ng/mL - ABG Interpretation ABG results: PT/INR, D-dimer PT 27.2 Seconds (9.4-12.1) H 11/18/17 00:41 - VTE Documentation of Mechanical Device: Intermittent pneumatic compression device Consult Discharge Plan - Plan Referrals: Ray Corrigan MD [Primary Care Provider] -
--- NOTE | 2017-11-18 08:39 | Discharge Summary ---
<Alex Benoit - Last Filed: 11/18/17 08:59> - NOTES TO OUTPATIENT PROVIDER Notes to Outpatient Provider: The patient presented with evidence of CAP + COPD Exacerbation, and was septic on admission. He was placed on levaquin and steroids, which seemed to help. He will be discharged with long taper of prednisone, and follow-up to primary care. Orders not resulted at time of discharge: Pending orders 11/18/17 08:27 Phosphorous Routine 11/19/17 04:00 PT/INR [Prothrombin Time INR] [COAG] AM 0400 11/20/17 04:00 PT/INR [Prothrombin Time INR] [COAG] AM 0400 11/21/17 04:00 PT/INR [Prothrombin Time INR] [COAG] AM 0400 Date of Encounter: 11/18/17 Time of Encounter: 08:36 - Discharge Diagnosis (1) Acute exacerbation of chronic obstructive airways disease Priority: Primary Status: Acute Assessment and Plan: Acute on chronic obstructive pulmonary disease The patient has required increased O2, increased sputum production, and SOB There is prominent wheezing on exam, which was not previously documented Currently on Levaquin and solu-medrol Discharge on Long taper of steroids as directed (2) Community acquired bacterial pneumonia Priority: Primary Status: Acute Assessment and Plan: SOB due to Acute CAP Improved, now afebrile with decreased WBC and HR - Blood Cx currently negative - Urine Legionella antigen negative - Levaquin Day 3 - CBCD, CMP in AM - Tylenol 650 mg PO q 4-6 hr PRN pain or fever (3) CAD (coronary artery disease) Priority: Secondary Status: Chronic Assessment and Plan: Stable Continue ASA, Statin, Plavix, BB Qualifiers: Coronary Disease-Associated Artery/Lesion type: bypass graft [place] vs. transplanted heart: [place] heart Associated angina: angina presence unspecified Qualified Code(s): I25.810 - Atherosclerosis of coronary artery bypass graft(s) without angina pectoris (4) PAF (paroxysmal atrial fibrillation) Priority: Secondary Status: Chronic Assessment and Plan: Stable, rate controlled Continue warfarin, pharmacy to dose Current INR 2.5 (5) Sepsis Priority: Secondary Status: Resolved Assessment and Plan: Patient met sepsis criteria on admission Sepsis Criteria: Fever, leukocytosis, tachypnea. Source: CAP Resolved at this time Continue levaquin Qualifiers: Sepsis type: sepsis due to unspecified organism Qualified Code(s): A41.9 - Sepsis, unspecified organism (6) Hypophosphatemia Priority: Secondary Status: Acute Assessment and Plan: Replete phosphate with neutraphos Hospital course: Mr. Nichols is a 82 year old male with history atrial fibrillation, coronary artery disease, DVT, and hyperlipidemia who presented to the hospital from the cardiology office after being found hypoxic. He apparently uses 2L O2 at home, and had to increase to 3L O2. He also has had increased cough, sputum production , and has felt feverish. In the ED he had a CXR which showed evidence of pneumonia, and a CTA that showed multifocal pneumonia in the RUL. He was febrile , tachypnic, and had a leukocytosis. He was admitted to the floor with sepsis secondary to CAP with COPD exacerbation, and was treated with levaquin and solu- medrol. He has continued to improve over his stay, and he feels that he is approaching baseline at this time. He will be discharged home on oral levaquin and long taper of prednisone. For more detailed information regarding hospital course and discharge plan, please see individual assessments. Discharge discussed with: patient, nurse, case management - Time Spent with Patient Total time spent providing and/or coordinating discharge services: - Discharge Medications Prescriptions: levoFLOXacin [Levaquin] 750 mg PO DAILY #4 tablet predniSONE [PredniSONE] 10 mg PO DAILY #66 tablet Home Medications: Albuterol Sulfate [Albuterol Inhaler] 2 puff IH Q4H PRN 10/02/16 [History] Atorvastatin [Lipitor] 40 mg PO HS 10/02/16 [History] Clopidogrel [Plavix] 75 mg PO DAILY #30 tablet 10/04/16 [Rx] Fluticasone Propionate Nasal [Flonase] 50 mcg NS BID PRN 05/01/17 [History] HYDROcodone/Acet 5/325 mg [Frederic 5-325 mg] 1 tab PO Q6H PRN 05/01/17 [History] Metoprolol Succinate [Toprol Xl] 25 mg PO DAILY 10/19/17 [History] Warfarin [Coumadin] 2.5 mg PO TUSA 10/19/17 [History] Budesonide/Formoterol 160/4.5 [Symbicort 160/4.5] 2 puff IH BID 11/16/17 [ History] Tiotropium [Spiriva] 18 mcg IH DAILY 11/16/17 [History] Warfarin Sodium 5 mg PO SUMOWETHFR 11/16/17 [History] levoFLOXacin [Levaquin] 750 mg PO DAILY #4 tablet 11/18/17 [Rx] predniSONE [PredniSONE] 10 mg PO DAILY #66 tablet 11/18/17 [Rx] Allergies/Adverse Reactions: 3 Allergy/AdvReac Type Severity Reaction Status Date / Time nitroglycerin Allergy Mild Hypotension Verified 11/16/17 11:59 doxycycline AdvReac Redness of Verified 11/16/17 11:59 Skin ranolazine [From Ranexa] AdvReac Fatigued Verified 11/16/17 11:59 Date of admission: 11/16/17 19:38 Primary care physician: Ray Corrigan MD Discharging clinician: Alex Benoit Anticipated date of discharge: 11/18/17 - Constitutional Vitals: Temp Pulse Resp BP Pulse Ox 97.4 F L 73 18 119/74 98 11/18/17 06:35 11/18/17 06:35 11/18/17 06:35 11/18/17 06:35 11/18/17 06:35 General appearance: Present: A&O X 3 Exam: Gen: Vitals noted. No acute distress. HEENT: Normocephalic, atraumatic Neck: Supple. No adenopathy. Cardiac: RRR, no murmur, +S1/S2 Pulmonary: There are b/l rhonchi heard with significant expiratory wheezing that has improved from prior exam Abdomen: soft, nontender, no guarding Back: Nontender throughout. MSK: ROM intact, no joint swelling noted Extremities: no BLE edema, nontender calf, no cyanosis or clubbing Neuro: moves all extremities, no focal deficits Psych: Appropriate mood and behavior - Patient Status Disposition: Home, Self-Care Condition: Fair Overall status at discharge: patient is progressing back to baseline - Discharge Instructions Follow Up With: Ray Corrigan MD [Primary Care Provider] - Additional Instructions: Please follow up with primary care within 5 days of discharge Continue home medications as prescribed Continue Levaquin for 4 days, Continue Prednisone taper as follows: Take 6 tablets for 4 days, then take 5 tablets for 4 days, then take 4 tablets for 4 days, then take 3 tablets for 4 days, then take 2 tablets for 4 days, then take 1 tablet for 4 days You should expect your cough to last 3-4 weeks following antibiotic course. Return to the ED for worsening symptoms, increased fever, chest pains, worsening shortness of breath, and changes in level of consciousness. - Diet and Activity Activity: increase activity as tolerated, wear oxygen at all times Diet: low salt diet - VTE Documentation of Mechanical Device: Intermittent pneumatic compression device <Da Segura - Last Filed: 11/18/17 09:18> Orders not resulted at time of discharge: Pending orders 11/19/17 04:00 PT/INR [Prothrombin Time INR] [COAG] AM 0400 11/20/17 04:00 PT/INR [Prothrombin Time INR] [COAG] AM 0400 11/21/17 04:00 PT/INR [Prothrombin Time INR] [COAG] AM 0400 Date of Encounter: 11/18/17 - Discharge Diagnosis (1) Community acquired bacterial pneumonia Status: Acute (2) CAD (coronary artery disease) Status: Chronic Qualifiers: Coronary Disease-Associated Artery/Lesion type: bypass graft [place] vs. transplanted heart: [place] Associated angina: angina presence unspecified Qualified Code(s): I25.810 - Atherosclerosis of coronary artery bypass graft(s) without angina pectoris (3) PAF (paroxysmal atrial fibrillation) Status: Chronic (4) Acute exacerbation of chronic obstructive airways disease Status: Acute (5) Sepsis Status: Resolved Qualifiers: Sepsis type: sepsis due to unspecified organism Qualified Code(s): A41.9 - Sepsis, unspecified organism (6) Hypophosphatemia Status: Acute Hospital course: Mr. Nichols is a 82 year old male - Time Spent with Patient Total time spent providing and/or coordinating discharge services: Date of admission: 11/16/17 19:38 Primary care physician: Ray Corrigan MD - Constitutional Vitals: Temp Pulse Resp BP Pulse Ox 97.4 F L 73 18 119/74 98 11/18/17 06:35 11/18/17 06:35 11/18/17 06:35 11/18/17 06:35 11/18/17 06:35 - Attending Attestation Acute on chronic hypoxic respiratory failure secondary to acute COPD exacerbation due to sepsis from community-acquired pneumonia unknown agent Continue Levaquin day #3/7 slow prednisone taper History of right lower extremity DVT after a surgical procedure in the past, currently on Coumadin due to atrial fibrillation as well time spetn: 40 min I examined this patient and my medical decision-making was reviewed with the Resident Physician. I agree with the documented findings, disposition and treatment plan as described except to the extent set forth below.
[2017-11-18 08:49] LABS: Phosphorous 2.8 mg/dL (2.7-4.5)
[2017-11-18] MEDS: Budesonide/Formoterol 160/4.5 MDI IH SCH (10:38)
== END 2017-11-18 11:25 | disposition home or self-care (01) | DRG 871 ==
LOC: 2NENU 11:57 → EMEROO 11:57 → 2NENU 16:09
PROVIDERS: ADMIT Hospitalist; ATTEND Hospitalist

== ENCOUNTER 2018-08-10 16:01 | Observation (INO) ==
[2018-08-10] MEDS ORDERED: Aspirin 81 MG TAB.CHEW PO ONE (16:11)
[2018-08-10] MEDS ORDERED: Ipratropium/Albuterol Neb 3 ML IH ONE (16:27)
[2018-08-10 16:41] LABS: VBG HCO3 29 mEq/L (21-27); VBG PCO2 43 mmHg (41-51); VBG PH 7.44 pH Units (7.32-7.42); VBG PO2 83 mmHg (25-50)
[2018-08-10 16:47] LABS: Basophils % 0.6 %; Eosinophils % 0.4 %; Hematocrit 41.1 % (37.5-50.1); Hemoglobin 13.3 g/dL (12.9-16.9); Immature Granulocytes % 1.2 % (0-4); Lymphocytes # 0.7 K/mcL (0.6-4.6); Lymphocytes % 13.5 %; Mean Corpuscular HGB Conc 32.4 g/dL (31.6-35.5); Mean Corpuscular Hemoglobin 28.9 pg (28.0-33.3); Mean Corpuscular Volume 89.3 fL (83.0-100.0); Mean Platelet Volume 9.4 fL (9.4-12.4); Monocytes # 0.5 K/mcL (0.0-1.3); Monocytes % 9.8 %; Neutrophils # 3.8 K/mcL (1.6-8.9); Platelet Count 198 K/mcL (140-400); Red Cell Distribution Width 13.2 % (11.5-14.5); Segmented Neutrophils % 74.5 %
[2018-08-10 16:55] LABS: INR 1.3; Prothrombin Time 14.7 Seconds (9.4-12.1)
--- NOTE | 2018-08-10 16:58 | Emergency Department Note ---
Disposition Clinical Impression: LUISA (acute kidney injury) Chest pain Qualifiers: Chest pain type: unspecified Qualified Code(s): R07.9 - Chest pain, unspecified Disposition: Admitted As Inpatient Condition: Fair Referrals: Devora Corrigan [Primary Care Provider] - Forms: ED Satisfaction Letter Time of Disposition: 17:17 General Adult HPI - General Chief complaint: ED Shortness of Breath/Dyspnea Stated complaint: CP, SIERRA Time Seen by Provider: 08/10/18 16:11 Source: patient, family, EMS Mode of arrival: EMS Limitations: no limitations Nursing Notes Reviewed: Yes Vital Signs Reviewed: Yes - History of Present Illness HPI Narrative: Patient is an 82-year-old male that presents emergency Department with chest pain. Patient states that chest pain began while he was at the doctor's office. Patient states that he had some increased shortness of breath at that time but is back to his baseline of shortness of breath. Patient requires 2 L of oxygen at baseline. Patient states that the chest pain is located in the center of his chest and felt like his previous heart attacks. Patient states that he has a history of coronary bypass. Patient states that he was concerning due to it being similar to his previous ME pain. Patient states that he was nauseated. Patient states that he had to be scanned by his because he felt hot during this event. Pain Scale: 0 - Related Data Home Medications Medication Instructions Recorded Confirmed Metoprolol Succinate [Toprol Xl] 25 mg PO DAILY 10/19/17 08/06/18 Albuterol Neb [Proventil Neb] 2.5 mg IH Q4HR PRN 12/04/17 08/06/18 Albuterol Sulfate [Ventolin Hfa] 2 puff IH Q4H PRN 12/04/17 08/06/18 Bumetanide [Bumex] 1 mg PO DAILY PRN 04/24/18 08/06/18 Olopatadine HCl [Pataday] 1 drop OP DAILY 04/24/18 08/06/18 Potassium Chloride [K-Tab ER] 20 meq PO DAILY 04/24/18 08/06/18 Tizanidine HCl [Zanaflex] 2 mg PO TID PRN 04/24/18 08/06/18 predniSONE [PredniSONE] 10 mg PO DAILY 04/24/18 08/06/18 Finasteride [Proscar] 5 mg PO DAILY 08/06/18 08/06/18 Fluticasone Propionate Nasal 2 spray NS BID 08/06/18 08/06/18 [Flonase] Fluticasone/Umeclidin/Vilanter 1 each IH DAILY 08/06/18 08/06/18 [Trelegy Ellipta 100-62.5-25] Hydrocodone/Acetaminophen 1 each PO BID PRN 08/06/18 08/06/18 [Hydrocodon-Acetaminophen 5-325] Pantoprazole Sodium [Protonix] 40 mg PO DAILY 08/06/18 08/06/18 Rivaroxaban [Xarelto] 20 mg PO DAILY 08/06/18 08/06/18 predniSONE [PredniSONE] 2.5 mg PO DAILY 08/06/18 08/06/18 Previous Rx's Medication Instructions Recorded Clopidogrel [Plavix] 75 mg PO DAILY #30 tablet 10/04/16 Cyanocobalamin (B-12) [Vitamin B12] 1,000 mcg PO DAILY #30 tablet 04/25/18 Ferrous Sulfate 325 mg PO DAILY #30 tablet 04/25/18 Azithromycin [Zithromax] 250 mg PO DAILY #2 tablet 08/07/18 Cefuroxime PO [Ceftin] 500 mg PO Q12HR #4 tablet 08/07/18 Lactobacillus [Culturelle] 1 each PO BID #4 cap.sprink 08/07/18 Allergies Allergy/AdvReac Type Severity Reaction Status Date / Time nitroglycerin Allergy Mild Hypotension Verified 08/10/18 16:15 doxycycline AdvReac Redness of Verified 08/10/18 16:15 Skin ranolazine [From Ranexa] AdvReac Fatigued Verified 08/10/18 16:15 All systems ED: reviewed and negative except as stated. Constitutional: Denies: fever Cardiovascular: Reports: chest pain Respiratory: Reports: dyspnea Gastrointestinal: Reports: nausea. Denies: abdominal pain Genitourinary: Denies: urgency, dysuria, frequency Musculoskeletal: Denies: back pain, neck pain Past Medical History - Past Medical History Medical history: Reports: COPD, CVA, myocardial infarction, other Surgical history: Reports: angioplasty/stent, coronary bypass (CABG), knee replacement, pacemaker/AICD Psychiatric history: Reports: no psych history - Social History Smoking Status: Never smoker Smokeless Tobacco Status: No Alcohol use: Reports: none Drug use: Reports: none Physical Exam - General Limitations: no limitations General appearance: alert, in no apparent distress - Head Head exam: atraumatic, normocephalic - Eye Eye exam: Present: normal appearance, EOMI - Neck Neck exam: Present: normal inspection, full ROM, trachea midline - Respiratory Respiratory exam: Present: wheezes (Has wheezes bilaterally) - Cardiovascular Cardiovascular exam: Present: normal rhythm, tachycardia, normal heart sounds, +S1, +S2 - Abdominal Exam Abdominal exam: Present: soft, Non-Tender, normal bowel sounds - Neurological Exam Neurological exam: Present: alert, oriented X3 - Psychiatric Psychiatric exam: Present: normal affect, normal mood - Skin Skin exam: Present: warm, dry, intact Course Vital Signs Temperature 98.3 F 08/10/18 16:08 Pulse Rate 118 08/10/18 16:08 Respiratory Rate 18 08/10/18 16:08 Blood Pressure 103/86 08/10/18 16:08 O2 Sat by Pulse Oximetry 96 08/10/18 16:08 Temperature 98.3 F 08/10/18 16:08 Pulse Rate 113 08/10/18 16:15 Respiratory Rate 20 08/10/18 17:22 Blood Pressure 103/86 08/10/18 16:08 O2 Sat by Pulse Oximetry 95 08/10/18 17:22 Oxygen Delivery Oxygen Delivery Nasal Cannula Medical Decision Making - [facility] Narrative Medical decision making narrative: Due the patient was anything to the emergency department with reports of chest pain we will obtain basic laboratory testing. As well as EKG and chest x-ray. The patient also has had wheezing on exam so we will provide him with a DuoNeb breathing treatment. The EKG was sent to cardiology for review and they did not feel that this met criteria at this time for any acute intervention. 1709 patient states that his chest pain has resolved and is no longer having pain. Patient's troponin is negative at 0.03. And is no longer having active chest pain. Patient was given aspirin. Patient received breathing treatment here in the emergency department due to having wheezing on exam. Patient does have mild acute kidney injury of 1.35. Based on the patient's symptoms of chest pain is been similar to his previous MIs the patient will require admission to the hospital for further evaluation and management of his acute chest pain. Called spoke the admitting hospitalist and they have accepted the patient their service. Patient be admitted to the hospital this time for further evaluation and management of his chest pain. - Medical Records Medical records reviewed: Yes I reviewed the patient's medical records. - Lab Data Lab results reviewed: Yes I reviewed the patient's lab results. Result diagrams: 08/10/18 16:23 08/10/18 16:23 Lab Results 08/10/18 08/10/18 08/10/18 Range/Units 16:23 16:23 16:23 WBC 5.1 (4.3-11.1) K/mcL RBC 4.60 (4.19-5.50) M/mcL Hgb 13.3 (12.9-16.9) g/dL Hct 41.1 (37.5-50.1) % MCV 89.3 (83.0-100.0) fL MCH 28.9 (28.0-33.3) pg MCHC 32.4 (31.6-35.5) g/dL RDW 13.2 (11.5-14.5) % Plt Count 198 (140-400) K/mcL MPV 9.4 (9.4-12.4) fL Immature Gran % 1.2 (0-4) % Seg Neutrophils % 74.5 % Lymphocytes % 13.5 % Monocytes % 9.8 % Eosinophils % 0.4 % Basophils % 0.6 % Neutrophils # 3.8 (1.6-8.9) K/mcL Lymphocytes # 0.7 (0.6-4.6) K/mcL Monocytes # 0.5 (0.0-1.3) K/mcL Eosinophils # 0.0 (0.0-0.6) K/mcL Basophils # 0.0 (0.0-0.2) K/mcL PT 14.7 H (9.4-12.1) Seconds INR 1.3 D-Dimer 433 (0-500) ng/mLFEU VBG pH (7.32-7.42) pH Units VBG pCO2 (41-51) mmHg VBG pO2 (25-50) mmHg VBG HCO3 (21-27) mEq/L Sodium (136-145) mEq/L Potassium (3.5-5.1) mEq/L Chloride (98-107) mEq/L Carbon Dioxide (23-29) mEq/L BUN (8-23) mg/dL Creatinine (0.70-1.30) mg/dL Est GFR ( Amer) (> 60) Est GFR (Non-Af Amer) (> 60) BUN/Creatinine Ratio (6-26) Glucose (70-105) mg/dL Calculated Osmolality (280-300) Calcium (8.6-10.3) mg/dL Troponin I (< 0.04) ng/mL 08/10/18 08/10/18 Range/Units 16:23 16:39 WBC (4.3-11.1) K/mcL RBC (4.19-5.50) M/mcL Hgb (12.9-16.9) g/dL Hct (37.5-50.1) % MCV (83.0-100.0) fL MCH (28.0-33.3) pg MCHC (31.6-35.5) g/dL RDW (11.5-14.5) % Plt Count (140-400) K/mcL MPV (9.4-12.4) fL Immature Gran % (0-4) % Seg Neutrophils % % Lymphocytes % % Monocytes % % Eosinophils % % Basophils % % Neutrophils # (1.6-8.9) K/mcL Lymphocytes # (0.6-4.6) K/mcL Monocytes # (0.0-1.3) K/mcL Eosinophils # (0.0-0.6) K/mcL Basophils # (0.0-0.2) K/mcL PT (9.4-12.1) Seconds INR D-Dimer (0-500) ng/mLFEU VBG pH 7.44 H (7.32-7.42) pH Units VBG pCO2 43 (41-51) mmHg VBG pO2 83 H (25-50) mmHg VBG HCO3 29 H (21-27) mEq/L Sodium 140 (136-145) mEq/L Potassium 3.6 (3.5-5.1) mEq/L Chloride 100 (98-107) mEq/L Carbon Dioxide 29 (23-29) mEq/L BUN 30 H (8-23) mg/dL Creatinine 1.35 H (0.70-1.30) mg/dL Est GFR ( Amer) > 60 (> 60) Est GFR (Non-Af Amer) 50 L (> 60) BUN/Creatinine Ratio 22 (6-26) Glucose 143 H (70-105) mg/dL Calculated Osmolality 299 (280-300) Calcium 9.4 (8.6-10.3) mg/dL Troponin I 0.03 (< 0.04) ng/mL - Radiology Data Radiology results reviewed: Yes I reviewed the patient's radiology results. - EKG Data EKG #1 EKG attestation: Yes I reviewed and interpreted this EKG. EKG results narrative: EKG shows a paced rhythm at a rate of 150 bpm, qrs duration 162, QTC of 550. No evidence of STEMI and EKG. This is compared to EKG on 08/06/18 which showed a paced rhythm and rate of 70 beats from it. Attestation Statement - Attestation Attestation: I, Ortega Newman, examined this patient and my medical decision-making was reviewed with the CHAR BELT OPERATOR/PA/Advanced Practice Nurse/Resident Physician. I agree with the documented findings, disposition and treatment plan as described except to the extent set forth below. 82-year-old male presents emergency Department with concerns of acute onset chest pain. Patient states the pain feels similar to his previous heart attack. Patient states he feels significantly weak and fatigued since the episode of chest pain. EKG had elevated ST segments compared to his previous one however it is a paced rhythm. We spoke with the credit card clerk after the initial evaluation who evaluated the EKG and agreed with the plan for continued management. Patient will be admitted to the hospitalist for further care and evaluation.
[2018-08-10 16:59] LABS: Troponin I 0.03 ng/mL (< 0.04)
[2018-08-10 17:13] LABS: BUN/Creatinine Ratio 22 (6-26); Blood Urea Nitrogen 30 mg/dL (8-23); Calcium 9.4 mg/dL (8.6-10.3); Carbon Dioxide 29 mEq/L (23-29); Chloride 100 mEq/L (98-107); Glucose 143 mg/dL (70-105); Osmolality,Calculated 299 (280-300); Potassium 3.6 mEq/L (3.5-5.1); Sodium 140 mEq/L (136-145); eGFR For Non-African Americans 50 (> 60)
[2018-08-10] MEDS ORDERED: *HR* HYDROcodone/Acet 5/325 mg TABLET PO PRN (19:27)
[2018-08-10] MEDS ORDERED: Bumetanide 1 MG TABLET PO PRN (19:27)
[2018-08-10] MEDS ORDERED: Albuterol 2.5 MG/3 ML NEBULIZER IH PRN (19:27)
[2018-08-10] MEDS ORDERED: tiZANidine 4 MG TABLET PO PRN (19:27)
[2018-08-10] MEDS ORDERED: methylPREDNISolone 125 MG/2 ML VIAL IVP ONE (19:55)
--- NOTE | 2018-08-10 20:02 | Internal Med History&Physical ---
Date of Encounter: 08/10/18 Time of Encounter: 20:00 Internal Medicine - H&P: HPI Chief complaint: chest pain/SOB Admitted From: Emergency Dept Plans for Post Hospital Care: Home History of present illness: Randy Nichols is an 82-year-old male with a history of COPD on 2 L home oxygen and coronary artery disease status post CABG and stent placements with resultant ischemic cardiomyopathy last EF seen to be 40-45% in 2017 presenting to the emergency room with complaint of chest pain. He says that it started earlier in the morning while he was at his physicians office and this was accompanied by shortness of breath. He localizes it to the center of his chest stating that it felt like his previous heart attacks he also reported associated nausea and feeling diaphoretic. Arrival to the ER he was hemodynamically stable. Wheezing was noted on exam so nebulizer treatment was given. His EKG revealed a ventricular paced rhythm and had a negative troponin at 0.03. His chest pain had resolved spontaneously so he was given loading dose of aspirin alone. He is now admitted for further observation. At this time he says his chest pain has resolved but that he feels unwell due to shortness of breath which is why he went to his PCPs office in the first place. Family members at bedside state that he has been increasingly wheezy and coughing initially producing yellowish to green sputum, requiring oxygen more frequently than before. Past Med Surg Social Fam HX - Past Medical History Medical history: COPD, CVA, myocardial infarction, other Additional medical history: X 3 MD'S WITH POSSIBLE X 4 CARDIAC STENTS. Psychiatric history: no psych history - Past Surgical History Surgical History: angioplasty/stent, coronary bypass (CABG), knee replacement, pacemaker/AICD Additional surgical history: sinususitis, bilateral knee, phacoemulsification,. MULTIPLE CARDIAC STENTS. PACEMAKER - Social History Smoking Status: Never smoker Smokeless Tobacco Status: No Alcohol use: none Drug use: none - Family History Mother Living Status: Father Living Status: Hx Family Cardiac Disorders: Yes (MD) Daughter Adopted: No Family Member Ethnicity: Non- Living Status: Still Living Hx Family Cardiac Disorders: Yes (HYPERTENTION) Internal Medicine - H&P: Meds Clopidogrel [Plavix] 75 mg PO DAILY #30 tablet 10/04/16 [Rx] Metoprolol Succinate [Toprol Xl] 25 mg PO DAILY 10/19/17 [History] Albuterol Neb [Proventil Neb] 2.5 mg IH Q4HR PRN 12/04/17 [History] Albuterol Sulfate [Ventolin Hfa] 2 puff IH Q4H PRN 12/04/17 [History] Bumetanide [Bumex] 1 mg PO DAILY PRN 04/24/18 [History] Olopatadine HCl [Pataday] 1 drop OP DAILY 04/24/18 [History] Potassium Chloride [K-Tab ER] 20 meq PO DAILY 04/24/18 [History] Tizanidine HCl [Zanaflex] 2 mg PO TID PRN 04/24/18 [History] Cyanocobalamin (B-12) [Vitamin B12] 1,000 mcg PO DAILY #30 tablet 04/25/18 [Rx] Ferrous Sulfate 325 mg PO DAILY #30 tablet 04/25/18 [Rx] Finasteride [Proscar] 5 mg PO DAILY 08/06/18 [History] Fluticasone Propionate Nasal [Flonase] 2 spray NS BID 08/06/18 [History] Fluticasone/Umeclidin/Vilanter [Trelegy Ellipta 100-62.5-25] 1 each IH DAILY 0 08/06/18 [History] Hydrocodone/Acetaminophen [Hydrocodon-Acetaminophen 5-325] 1 each PO BID PRN 08/06/18 [History] Pantoprazole Sodium [Protonix] 40 mg PO DAILY 08/06/18 [History] Rivaroxaban [Xarelto] 20 mg PO DAILY 08/06/18 [History] Allergy/AdvReac Type Severity Reaction Status Date / Time nitroglycerin Allergy Mild Hypotension Verified 08/10/18 16:15 doxycycline AdvReac Redness of Verified 08/10/18 16:15 Skin ranolazine [From Ranexa] AdvReac Fatigued Verified 08/10/18 16:15 All Systems PM: A 10-system review of systems was performed and is negative for pertinent findings except as documented above in the HPI. - Constitutional Vitals: Temp Pulse Resp BP Pulse Ox 98.3 F 103 18 129/93 95 08/10/18 16:08 08/10/18 18:20 08/10/18 18:20 08/10/18 18:20 08/10/18 18:20 Exam: Vitals: Reviewed General: Well-developed male lying in bed in no acute distress. Skin: Flushed face. HEENT: Moist mucous membranes. No conjunctivae pallor. Neck: No lymphadenopathy. No JVD. No carotid bruits. No palpable thyroid. Chest: Diminished thoracic expansion with scattered wheezes in both lung beltrán. Heart: Normal S1 & S2; rhythmic. Abdomen: soft and non-tender to palpation. No peritoneal reaction. Extremities: No clubbing, cyanosis or edema. No calf tenderness. Normal distal pulses. Neurological: Awake, alert and oriented to person, place and time. No focal deficits. Psych: Affect appropriate. Internal Med - H&P Results - Labs CBC & Chem 7: 08/10/18 16:23 08/10/18 16:23 Labs: Short CBC 08/10/18 Range/Units 16:23 WBC 5.1 (4.3-11.1) K/mcL Hgb 13.3 (12.9-16.9) g/dL Hct 41.1 (37.5-50.1) % Plt Count 198 (140-400) K/mcL Neutrophils # 3.8 (1.6-8.9) K/mcL BMP 08/10/18 16:23 Sodium 140 Potassium 3.6 Chloride 100 Carbon Dioxide 29 BUN 30 H Creatinine 1.35 H Glucose 143 H Calcium 9.4 Cardiac Enzymes 08/10/18 Range/Units 16:23 Troponin I 0.03 (< 0.04) ng/mL - ABG Interpretation ABG results: 08/10/18 16:39 VBG pH 7.44 H VBG pCO2 43 VBG pO2 83 H VBG HCO3 29 H - Impressions ITS Impressions Chest X-Ray 08/10/18 16:11 IMPRESSION: No evidence of acute process. D/ / Florencio Gonzalez / Florencio Gonzalez Interpreting Provider: Florencio Gonzalez - Assessment and plan (1) Chest pain Current Visit: Yes Status: Acute Assessment and plan: The patient's substernal chest pain resolved spontaneously. Unclear if this pain may have been related to his incessant tussive episodes cuasing strain as it was reproducible to palpation and the pain improved when his breathing improved. He does feel as though it felt like his previous MIs. Given his medical history he warrants observation. Will monitor on telemetry and trend his enzymes. Qualifiers: Chest pain type: unspecified Qualified Code(s): R07.9 - Chest pain, unspecified (2) Acute exacerbation of chronic obstructive airways disease Current Visit: Yes Status: Acute Assessment and plan: The patient has evident signs of a COPD exacerbation given the increasing dyspnea, wheezing and productive cough. No infiltrates on x-ray to suggest pneumonia. Will start nebulizer therapy, give steroids and azithromycin. His lung disease is not smoking-associated but seemingly work-industry related. (3) LUISA (acute kidney injury) Current Visit: Yes Status: Acute Assessment and plan: Has a mild stage 1 LUISA. Family members state that his oral intake has been poor over the past week. On exam he appears somewhat dry. Will give a liter of fluids overnight and recheck values in the morning. (4) CAD (coronary artery disease) Current Visit: Yes Status: Chronic Assessment and plan: Will continue his antiplatelet and statin therapy. Last cardiac cath showed severe 2 vessel disease and a patent bypass graft. He will need continue outpatient cardiology follow up for medical optimization. Qualifiers: Coronary Disease-Associated Artery/Lesion type: bypass graft [place] vs. transplanted heart: [place] heart Associated angina: with unspecified angina Qualified Code(s): I25.709 - Atherosclerosis of coronary artery bypass graft(s), unspecified, with unspecified angina pectoris (5) Iron deficiency Current Visit: Yes Status: Acute Assessment and plan: Continue FeSO4 supplementation. - Time Spent With Patient Total time spent is greater than 50% in coordination of care (as documented) at patient's floor/unit and/or counseling patient: Greater than 35 minutes
[2018-08-10] MEDS: Ipratropium/Albuterol Neb 3 ML IH SCH ×2 (20:04→21:26)
[2018-08-10] MEDS ORDERED: Ringers Solution, Lactated 1,000 ML IVC SCH (20:15)
[2018-08-10] MEDS: Azithromycin 500 MG in D5% in Water 250 ML IVPB SCH (20:30)
[2018-08-10] MEDS ORDERED: GuaiFENesin Liq 200 MG/10 ML UDC PO SCH (22:00)
[2018-08-10] MEDS: Fluticasone Propionate Nasal 50 MCG/SPRAY BOTTLE NS SCH (22:29)
[2018-08-10] MEDS: GuaiFENesin Liq 200 MG/10 ML UDC PO SCH (22:44)
[2018-08-11 04:48] LABS: BUN/Creatinine Ratio 28 (6-26); Blood Urea Nitrogen 28 mg/dL (8-23); Calcium 9.2 mg/dL (8.6-10.3); Carbon Dioxide 30 mEq/L (23-29); Chloride 100 mEq/L (98-107); Glucose 171 mg/dL (70-105); Osmolality,Calculated 296 (280-300); Potassium 4.4 mEq/L (3.5-5.1); Sodium 138 mEq/L (136-145); eGFR For Non-African Americans > 60 (> 60)
[2018-08-11] MEDS: GuaiFENesin Liq 200 MG/10 ML UDC PO SCH ×2 (04:53→08:21)
[2018-08-11] MEDS: Ipratropium/Albuterol Neb 3 ML IH SCH ×4 (04:55→19:22)
[2018-08-11] MEDS: *HR* Rivaroxaban 10 MG TABLET PO SCH (08:20)
[2018-08-11] MEDS: Cyanocobalamin (B-12) 1,000 MCG TABLET PO SCH (08:20)
[2018-08-11] MEDS: Metoprolol XL (24 HR) Succ 25 MG TAB.ER.24H PO SCH (08:21)
[2018-08-11] MEDS: Finasteride 5 MG TABLET PO SCH (08:21)
[2018-08-11] MEDS: (Fluticasone/Umeclidin/Vilanter [Trelegy Ellipta 100-) IH SCH (08:28)
[2018-08-11] MEDS: (Olopatadine Hcl [Pataday] 1 DROP) OP SCH (08:29)
[2018-08-11] MEDS: Fluticasone Propionate Nasal 50 MCG/SPRAY BOTTLE NS SCH ×2 (08:40→20:21)
[2018-08-11] MEDS ORDERED: NON-FORMULARY MEDICATION 1 EACH EACH (Pantoprazole Sodium [Protonix] 40 MG) PO SCH (09:00)
[2018-08-11] MEDS ORDERED: Ipratropium/Albuterol Neb 3 ML IH ONE (13:00)
[2018-08-11] MEDS ORDERED: Ipratropium/Albuterol Neb 3 ML IH SCH (15:03)
[2018-08-11] MEDS ORDERED: Albuterol 2.5 MG/3 ML NEBULIZER IH PRN (15:04)
[2018-08-11] MEDS ORDERED: Azithromycin 500 MG in D5% in Water 250 ML IVPB SCH (15:05)
--- NOTE | 2018-08-11 15:06 | Internal Med Progress Note ---
Hospitalist Progress Note - Encounter Date of Encounter: 08/11/18 Time of Encounter: 15:00 - Subjective Interval History: patient was admitted for chest pain and COPD exacerbation he is doning ok, on 2 L NC, sat 96% patient was on 2 L NC at home, CXR was negative for pneumona, but he has diffuse wheezing he has LLE chest pain when cough, and has tenderness to the left sternun patient is alert and oriented to3, he said he has not got any Neb since last night, I called RT to give sine the order was prn, I add scheduled Neb Q4 - Exam Vitals: Temp Pulse Resp BP Pulse Ox 98.5 F 98 18 122/87 96 08/11/18 14:44 08/11/18 14:44 08/11/18 14:44 08/11/18 14:44 08/11/18 14:44 Exam: Vitals: Reviewed General: Well-developed male lying in bed in no acute distress. Skin: Flushed face. HEENT: Moist mucous membranes. No conjunctivae pallor. Neck: No lymphadenopathy. No JVD. No carotid bruits. No palpable thyroid. Chest: Diminished thoracic expansion with b/l diffuse wheezes in both lung beltrán. Heart: Normal S1 & S2; rhythmic. Abdomen: soft and non-tender to palpation. No peritoneal reaction. Extremities: No clubbing, cyanosis or edema. No calf tenderness. Normal distal pulses. Neurological: Awake, alert and oriented to person, place and time. No focal deficits. Psych: Affect appropriate. DVT Prophylaxis: on xarelto - Summary of Assessment and Plan Summary of Assessment and Plan: Randy Nichols is an 82-year-old male with a history of COPD on 2 L home oxygen and coronary artery disease status post CABG and stent placements with resultant ischemic cardiomyopathy last EF seen to be 40-45% in 2017 presenting to the emergency room with complaint of chest pain. Arrival to the ER he was hemodynamically stable. Wheezing was noted on exam so nebulizer treatment was given. His EKG revealed a ventricular paced rhythm and had a negative troponin at 0.03. His chest pain had resolved spontaneously so he was given loading dose of aspirin alone. He is now admitted for further observation. At this time he says his chest pain has resolved but that he feels unwell due to shortness of breath which is why he went to his PCPs office in the first place. Family members at bedside state that he has been increasingly wheezy and coughing initially producing yellowish to green sputum, requiring oxygen more frequently than before. 1) Chest pain, atypical, with chest wall tenderness and worsening with cough, likley non-cardiac Current Visit: Yes Status: Acute Assessment and plan: The patient's substernal chest pain resolved spontaneously. negative trop Qualifiers: Chest pain type: unspecified Qualified Code(s): R07.9 - Chest pain, unspecified (2) Acute exacerbation of chronic obstructive airways disease Current Visit: Yes Status: Acute Assessment and plan: The patient has evident signs of a COPD exacerbation given the increasing dyspnea, wheezing and productive cough. No infiltrates on x-ray to suggest pneumonia. add solumedral azithromycin scheduled Nebs (3) LUISA (acute kidney injury) resolved after IVF Current Visit: Yes Status: Acute Assessment and plan: (4) CAD (coronary artery disease) Current Visit: Yes Status: Chronic Assessment and plan: Will continue his antiplatelet and statin therapy. Last cardiac cath showed severe 2 vessel disease and a patent bypass graft. He will need continue outpatient cardiology follow up for medical optimization. Qualifiers: Coronary Disease-Associated Artery/Lesion type: bypass graft [place] vs. transplanted heart: [place] heart Associated angina: with unspecified angina Qualified Code(s): I25.709 - Atherosclerosis of coronary artery bypass graft(s), unspecified, with unspecified angina pectoris (5) Iron deficiency Current Visit: Yes Status: Acute Assessment and plan: Continue FeSO4 supplementation. (6) Hx of CVA on xarelto (7) obesity with BMI 34 (8) COPD and chronic hypoxic respiratory failure on 2 L NC (9) chronic systolic CHF, continue home BB - Time Spent with Patient Total time spent is greater than 50% in coordination of care (as documented) at patient's floor/unit and/or counseling patient: 25 - 35 minutes Plan of Care Discussed with: patient Internal Medicine: Result - Labs CBC & Chem 7: 08/10/18 16:23 08/11/18 04:14 Labs: Short CBC 08/10/18 Range/Units 16:23 WBC 5.1 (4.3-11.1) K/mcL Hgb 13.3 (12.9-16.9) g/dL Hct 41.1 (37.5-50.1) % Plt Count 198 (140-400) K/mcL Neutrophils # 3.8 (1.6-8.9) K/mcL BMP 08/10/18 08/11/18 16:23 04:14 Sodium 140 138 Potassium 3.6 4.4 Chloride 100 100 Carbon Dioxide 29 30 H BUN 30 H 28 H Creatinine 1.35 H 1.01 Glucose 143 H 171 H Calcium 9.4 9.2 Cardiac Enzymes 08/10/18 08/10/18 08/11/18 Range/Units 16:23 21:45 04:14 Troponin I 0.03 0.03 < 0.03 (< 0.04) ng/mL - ABG Interpretation ABG results: PT/INR, D-dimer PT 14.7 Seconds (9.4-12.1) H 08/10/18 16:23 D-Dimer 433 ng/mLFEU (0-500) 08/10/18 16:23 - Impressions Impressions Chest X-Ray 08/10/18 16:11 IMPRESSION: No evidence of acute process. D/ / Florencio Gonzalez / Florencio Gonzalez Interpreting Provider: Florencio Gonzalez Consult Discharge Plan - Plan Referrals: Devora Corrigan [Primary Care Provider] -
[2018-08-11] MEDS: methylPREDNISolone 125 MG/2 ML VIAL IVP SCH (16:00)
[2018-08-11 17:42] LABS: Adenovirus Not Detected (Not Detect); Coronavirus 229E Not Detected (Not Detect); Coronavirus HKU1 Not Detected (Not Detect); Coronavirus NL63 Not Detected (Not Detect); Coronavirus OC43 Not Detected (Not Detect); Human Metapneumovirus Not Detected (Not Detect); Human Rhinovirus/Enterovirus Not Detected (Not Detect); Influenza A Subtype 2009 H1 Not Detected (Not Detect); Influenza A Untypeable Not Detected (Not Detect); Influenza B Not Detected (Not Detect); Parainfluenza Virus 1 Not Detected (Not Detect); Parainfluenza Virus 2 Not Detected (Not Detect); Parainfluenza Virus 3 Not Detected (Not Detect); Parainfluenza Virus 4 Not Detected (Not Detect); Respiratory Syncytial Virus DETECTED (Not Detect)
[2018-08-11 17:43] LABS: Bordetella Pertussis Not Detected (Not Detect); Chlamydophila pneumoniae Not Detected (Not Detect); Mycoplasma pneumoniae Not Detected (Not Detect)
[2018-08-11] MEDS: Azithromycin 500 MG in D5% in Water 250 ML IVPB SCH (20:20)
[2018-08-11] MEDS ORDERED: Acetylcysteine 10% 2 ML INHSOL IH ONE (21:42)
[2018-08-12] MEDS: Ipratropium/Albuterol Neb 3 ML IH SCH ×6 (00:49→23:31)
[2018-08-12] MEDS: methylPREDNISolone 125 MG/2 ML VIAL IVP SCH ×2 (04:01→08:04)
[2018-08-12] MEDS: Finasteride 5 MG TABLET PO SCH (08:04)
[2018-08-12] MEDS: Cyanocobalamin (B-12) 1,000 MCG TABLET PO SCH (08:04)
[2018-08-12] MEDS: *HR* Rivaroxaban 10 MG TABLET PO SCH (08:04)
[2018-08-12] MEDS: Metoprolol XL (24 HR) Succ 25 MG TAB.ER.24H PO SCH (08:04)
[2018-08-12] MEDS: (Fluticasone/Umeclidin/Vilanter [Trelegy Ellipta 100-) IH SCH (08:54)
[2018-08-12] MEDS: (Olopatadine Hcl [Pataday] 1 DROP) OP SCH (08:54)
[2018-08-12] MEDS: Fluticasone Propionate Nasal 50 MCG/SPRAY BOTTLE NS SCH ×2 (08:54→19:57)
[2018-08-12] MEDS ORDERED: Ipratropium/Albuterol Neb 3 ML IH PRN (13:12)
[2018-08-12] MEDS ORDERED: tiZANidine 4 MG TABLET PO PRN (13:13)
[2018-08-12] MEDS: Azithromycin 500 MG in D5% in Water 250 ML IVPB SCH (18:33)
--- NOTE | 2018-08-13 04:46 | Internal Med Progress Note ---
Hospitalist Progress Note - Encounter Date of Encounter: 08/12/18 Time of Encounter: 19:00 - Subjective Interval History: SUBJECTIVE: The patient feels good. He has mild cough but not wheezing. Denies difficulty breathing; on 2 L/min nasal cannula oxygen (his baseline). Denies abdominal pain, nausea and vomiting. He makes good amounts of urine. OBJECTIVE: Skin: Free of rash and discoloration. ENMT: Oral/pharyngeal mucosa is normal in appearance. Eyes: Sclera is white. There is no discharge from eyes. Respiratory: Normal breath sounds; no crackles or wheezes. CV: Heart is regular; no gallop or murmur. GI: Abdomen is soft and not tender. There is no palpable mass or visceromegaly. Neuro: There is no focal deficits. ADDITIONAL DATA: BMP from yesterday showed normal electrolytes. Creatinine was 1.01; 1.35 at admission. ASSESSMENT AND PLAN: COPD exacerbation/chronic respiratory failure with hypoxia. He seems to be baseline, again. To continue Zithromax. I will switch him from IV Solu-Medrol to oral prednisone. To continue nebulizer treatments with DuoNeb. He is on supplemental oxygen. Chest pain. Likely secondary to increased work of breathing. He has underlying (stable) coronary artery disease. To continue Toprol-XL and Plavix. I will talk to him about starting a statin at the discharge. Acute kidney injury. Resolved. DISPOSITION: I will likely discharge him tomorrow morning. - Exam Vitals: Temp Pulse Resp BP Pulse Ox 97.8 F 88 16 102/65 94 08/13/18 03:18 08/13/18 03:18 08/13/18 03:18 08/13/18 03:18 08/13/18 03:18 Exam: xx - Assessment and Plan (1) Acute exacerbation of chronic obstructive airways disease Current Visit: Yes Status: Acute (2) Chronic respiratory failure with hypoxia Current Visit: No Status: Chronic (3) Chest pain Current Visit: Yes Status: Acute (4) CAD (coronary artery disease) Current Visit: Yes Status: Chronic (5) LUISA (acute kidney injury) Current Visit: Yes Status: Resolved - Time Spent with Patient Total time spent is greater than 50% in coordination of care (as documented) at patient's floor/unit and/or counseling patient: 25 - 35 minutes Plan of Care Discussed with: patient Internal Medicine: Result - Labs CBC & Chem 7: 08/10/18 16:23 08/11/18 04:14 - ABG Interpretation ABG results: PT/INR, D-dimer PT 14.7 Seconds (9.4-12.1) H 08/10/18 16:23 D-Dimer 433 ng/mLFEU (0-500) 08/10/18 16:23 Consult Discharge Plan - Plan Referrals: Devora Corrigan [Primary Care Provider] - (3) Chest pain Qualifiers: Chest pain type: unspecified Qualified Code(s): R07.9 - Chest pain, unspecified (4) CAD (coronary artery disease) Qualifiers: Coronary Disease-Associated Artery/Lesion type: bypass graft [place] vs. transplanted heart: [place] heart Associated angina: with unspecified angina Qualified Code(s): I25.709 - Atherosclerosis of coronary artery bypass graft(s), unspecified, with unspecified angina pectoris
[2018-08-13] MEDS: Ipratropium/Albuterol Neb 3 ML IH SCH ×2 (05:07→10:26)
[2018-08-13 07:01] VITALS: BP 112/73
[2018-08-13] MEDS: *HR* Rivaroxaban 10 MG TABLET PO SCH (08:40)
[2018-08-13] MEDS: Cyanocobalamin (B-12) 1,000 MCG TABLET PO SCH (08:40)
[2018-08-13] MEDS: Finasteride 5 MG TABLET PO SCH (08:40)
[2018-08-13] MEDS: (Olopatadine Hcl [Pataday] 1 DROP) OP SCH (08:41)
[2018-08-13] MEDS: Metoprolol XL (24 HR) Succ 25 MG TAB.ER.24H PO SCH (08:41)
[2018-08-13] MEDS: (Fluticasone/Umeclidin/Vilanter [Trelegy Ellipta 100-) IH SCH (08:41)
[2018-08-13] MEDS: Fluticasone Propionate Nasal 50 MCG/SPRAY BOTTLE NS SCH (08:41)
[2018-08-13] MEDS ORDERED: predniSONE 20 MG TABLET PO SCH (09:00)
--- NOTE | 2018-08-13 09:51 | Discharge Summary ---
Date of Encounter: 08/13/18 Time of Encounter: 09:49 - Discharge Diagnosis (1) Acute exacerbation of chronic obstructive airways disease Priority: Primary Status: Acute (2) Chest pain Priority: Secondary Status: Acute Qualifiers: Chest pain type: unspecified Qualified Code(s): R07.9 - Chest pain, unspecified (3) CAD (coronary artery disease) Priority: Secondary Status: Chronic Qualifiers: Coronary Disease-Associated Artery/Lesion type: bypass graft [place] vs. transplanted heart: [place] heart Associated angina: with unspecified angina Qualified Code(s): I25.709 - Atherosclerosis of coronary artery bypass graft(s), unspecified, with unspecified angina pectoris (4) Chronic respiratory failure with hypoxia Priority: Secondary Status: Chronic (5) LUISA (acute kidney injury) Priority: Secondary Status: Resolved Hospital course: HOSPITAL COURSE: The patient is an 82-year-old male. We admitted him with exacerbation of COPDdeveloping in the last diffuse last several days preceding this admission. Complicated with some chest pain and coughing. Likely representing diet/strained respiratory muscles. His EKG and troponins were normal. We treated him with IV Zithromax with IV/by mouth steroids and nebulizer treatments with DuoNeb. We gave him some IV fluids to get him out of mild LUISA. He was on Xarelto; he has underlying atrial fibrillation. His ventricular rate was under control. We got him to his baseline by the time of discharge. He is using supplemental oxygen at 2 L/min at home. CONDITION AT DISCHARGE: He feels good. He has mild cough but not wheezing. Denies chest pain. Denies abdominal pain, nausea/vomiting. He has normal urination. Skin: Free of rash and discoloration. Respiratory: Normal breath sounds with no crackles and wheezes bilaterally. CV: Heart is regular with no gallop or murmur. GI: Abdomen is flat and soft with no palpable mass or visceromegaly. Neuro exam: There is no focal deficits. Normal speech, swallowing and gait. SEE DISCHARGE ORDERS/MEDICATIONS Discharge discussed with: patient - Time Spent with Patient Total time spent providing and/or coordinating discharge services: Greater than 30 minutes (40 minutes...) - Discharge Medications Prescriptions: Azithromycin [Zithromax] 250 mg PO Q24H 3 Days #3 tablet predniSONE [PredniSONE] 20 mg PO QAM 5 Days #5 tablet Home Medications: Clopidogrel [Plavix] 75 mg PO DAILY #30 tablet 10/04/16 [Rx] Metoprolol Succinate [Toprol Xl] 25 mg PO DAILY 10/19/17 [History] Albuterol Neb [Proventil Neb] 2.5 mg IH Q4HR PRN 12/04/17 [History] Albuterol Sulfate [Ventolin Hfa] 2 puff IH Q4H PRN 12/04/17 [History] Bumetanide [Bumex] 1 mg PO DAILY PRN 04/24/18 [History] Olopatadine HCl [Pataday] 1 drop OP DAILY 04/24/18 [History] Potassium Chloride [K-Tab ER] 20 meq PO DAILY 04/24/18 [History] Tizanidine HCl [Zanaflex] 2 mg PO TID PRN 04/24/18 [History] Cyanocobalamin (B-12) [Vitamin B12] 1,000 mcg PO DAILY #30 tablet 04/25/18 [Rx] Ferrous Sulfate 325 mg PO DAILY #30 tablet 04/25/18 [Rx] Finasteride [Proscar] 5 mg PO DAILY 08/06/18 [History] Fluticasone Propionate Nasal [Flonase] 2 spray NS BID 08/06/18 [History] Fluticasone/Umeclidin/Vilanter [Trelegy Ellipta 100-62.5-25] 1 each IH DAILY 08/06/18 [History] Hydrocodone/Acetaminophen [Hydrocodon-Acetaminophen 5-325] 1 each PO BID PRN 08/06/18 [History] Pantoprazole Sodium [Protonix] 40 mg PO DAILY 08/06/18 [History] Rivaroxaban [Xarelto] 20 mg PO DAILY 08/06/18 [History] Azithromycin [Zithromax] 250 mg PO Q24H 3 Days #3 tablet 08/13/18 [Rx] Patient Taking Own Medication 1 each IH DAILY each 08/13/18 [Rx] Patient Taking Own Medication 1 each OP DAILY each 08/13/18 [Rx] predniSONE [PredniSONE] 20 mg PO QAM 5 Days #5 tablet 08/13/18 [Rx] Allergies/Adverse Reactions: Allergy/AdvReac Type Severity Reaction Status Date / Time nitroglycerin Allergy Mild Hypotension Verified 08/10/18 16:15 doxycycline AdvReac Redness of Verified 08/10/18 16:15 Skin ranolazine [From Ranexa] AdvReac Fatigued Verified 08/10/18 16:15 Date of admission: 08/10/18 19:02 Primary care physician: Devora Corrigan Discharging clinician: Jamar Alex Anticipated date of discharge: 08/13/18 - Constitutional Vitals: Temp Pulse Resp BP Pulse Ox 97.6 F 80 20 112/73 99 08/13/18 06:55 08/13/18 07:00 08/13/18 06:55 08/13/18 07:00 08/13/18 06:55 General appearance: Present: A&O X 3, no acute distress, answers questions appropriately Exam: xx - Patient Status Disposition: Home, Self-Care Condition: Fair Functional capacity at discharge: independent ambulation - Discharge Instructions Instructions: Prednisone (By mouth), Azithromycin (By mouth), Chronic Obstructive Pulmonary Disease (DC) Follow Up With: Ray Corrigan MD [Partnered Physician] - 08/14/18 11:30 am - Diet and Activity Activity: increase activity as tolerated Diet: low fat, low cholesterol - VTE Reasons for not Prescribing Prophylaxis: Not indicated-Anticoagulated or INR therapeutic Deep Vein Thrombosis/Pulmonary Embolism Present on Admission: No
--- NOTE | 2018-08-15 00:30 | Electrocardiograph Report ---
[address] [address] Test Date: 2018-08-10 Pat Name: Randy Nichols Department: [id number] Room: 3B11 Gender: M Yarding Supervisor: : [id number] Requested By: Clark Hinton Order Number: [id number] Reading MD: Bette Silver Measurements Intervals [place] Rate: 115 P: 0 MA: QRS: 260 QRSD: 162 T: 69 QT: 397 QTc: 550 Interpretive Statements Ventricular-paced rhythm No further analysis attempted due to paced rhythm Electronically Signed On 08-15-2018 0:28:44 EST by Bette Silver
== END 2018-08-13 11:30 | disposition home or self-care (01) ==
LOC: 3BNU 16:01 → EMEROOARM 16:01 → SUATTDRO 19:02 → 3BNU 20:10
PROVIDERS: ADMIT Internal Medicine; ATTEND Internal Medicine

== ENCOUNTER 2019-02-17 19:38 | Inpatient (IN) ==
[2019-02-17] MEDS ORDERED: 0.9 % Sodium Chloride 1,000 ML IVC ONE (20:15)
[2019-02-17] MEDS ORDERED: Pantoprazole 80 MG in 0.9 % Sodium Chloride 50 ML IVPB STA (20:18)
[2019-02-17] MEDS ORDERED: Pantoprazole 40 MG VIAL IVP ONE (20:25)
[2019-02-17 20:51] LABS: Basophils % 0.4 %; Hematocrit 37.8 % (37.5-50.1); Hemoglobin 11.9 g/dL (12.9-16.9); Immature Granulocytes % 1.2 % (0-4); Lymphocytes # 1.2 K/mcL (0.6-4.6); Lymphocytes % 14.9 %; Mean Corpuscular HGB Conc 31.5 g/dL (31.6-35.5); Mean Corpuscular Hemoglobin 28.6 pg (28.0-33.3); Mean Corpuscular Volume 90.9 fL (83.0-100.0); Mean Platelet Volume 9.1 fL (9.4-12.4); Monocytes # 0.9 K/mcL (0.0-1.3); Platelet Count 242 K/mcL (140-400); Red Blood Count 4.16 M/mcL (4.19-5.50); Red Cell Distribution Width 13.9 % (11.5-14.5); Segmented Neutrophils % 72.5 %; White Blood Count 8.2 K/mcL (4.3-11.1)
[2019-02-17 20:57] LABS: VBG HCO3 28 mEq/L (21-27); VBG PCO2 41 mmHg (41-51); VBG PH 7.44 pH Units (7.32-7.42); VBG PO2 129 mmHg (25-50)
[2019-02-17 21:00] LABS: INR 1.5; Prothrombin Time 17.5 Seconds (9.4-12.1)
[2019-02-17 21:02] LABS: Activated Partial Thrombo Time 38.3 Seconds (26.0-36.0)
[2019-02-17 21:13] LABS: BUN/Creatinine Ratio 24 (6-26); Blood Urea Nitrogen 26 mg/dL (8-23); Calcium 9.1 mg/dL (8.6-10.3); Carbon Dioxide 27 mEq/L (23-29); Chloride 105 mEq/L (98-107); Glucose 130 mg/dL (70-105); Magnesium 2.1 mg/dL (1.6-2.6); Osmolality,Calculated 303 (280-300); Potassium 4.4 mEq/L (3.5-5.1); Sodium 143 mEq/L (136-145); Troponin I < 0.03 ng/mL (< 0.04); eGFR For African Americans > 60 (> 60); eGFR For Non-African Americans > 60 (> 60)
[2019-02-17] MEDS ORDERED: MetroNIDAZOLE 500 MG/100 ML 500 MG/100 ML BAG IVPB ONE (21:54)
[2019-02-18 00:25] LABS: Hematocrit 32.8 % (37.5-50.1)
[2019-02-18 00:27] LABS: Hemoglobin 10.3 g/dL (12.9-16.9)
[2019-02-18] MEDS ORDERED: Acetaminophen 325 MG TABLET PO PRN (01:14)
[2019-02-18] MEDS ORDERED: Naloxone 0.4 MG/ML INJ IVP PRN (01:14)
[2019-02-18] MEDS ORDERED: Ondansetron 4 MG/2 ML VIAL IVP PRN (01:14)
[2019-02-18] MEDS: Hydrocortisone Sodium Succ 100 MG/2 ML VIAL IVP SCH ×4 (02:05→23:03)
[2019-02-18] MEDS: Pantoprazole 40 MG in 0.9 % Sodium Chloride Mini Bag 100 ML IVC SCH ×4 (02:12→17:53)
[2019-02-18] MEDS ORDERED: 0.9 % Sodium Chloride 250 ML ONE (04:02)
[2019-02-18 04:36] LABS: Hematocrit 31.7 % (37.5-50.1); Hemoglobin 9.9 g/dL (12.9-16.9)
[2019-02-18 04:37] LABS: Basophils % 0.3 %; Eosinophils % 0.4 %; Hematocrit 31.8 % (37.5-50.1); Hemoglobin 9.9 g/dL (12.9-16.9); Immature Granulocytes % 1.5 % (0-4); Lymphocytes # 1.1 K/mcL (0.6-4.6); Lymphocytes % 13.8 %; Mean Corpuscular HGB Conc 31.1 g/dL (31.6-35.5); Mean Corpuscular Hemoglobin 28.8 pg (28.0-33.3); Mean Corpuscular Volume 92.4 fL (83.0-100.0); Mean Platelet Volume 9.2 fL (9.4-12.4); Monocytes # 0.5 K/mcL (0.0-1.3); Monocytes % 6.5 %; Neutrophils # 6.1 K/mcL (1.6-8.9); Platelet Count 184 K/mcL (140-400); Red Blood Count 3.44 M/mcL (4.19-5.50); Segmented Neutrophils % 77.5 %; White Blood Count 7.9 K/mcL (4.3-11.1)
[2019-02-18 04:51] LABS: INR 1.3
[2019-02-18 04:54] LABS: Activated Partial Thrombo Time 31.9 Seconds (26.0-36.0)
[2019-02-18 04:58] LABS: Alanine Aminotransferase 12 Units/L (7-52); Albumin 3.2 g/dL (3.5-5.7); Albumin/Globulin Ratio 1.8 (1.1-2.2); Alkaline Phosphatase 54 Units/L (34-104); Aspartate Amino Transferase 14 Units/L (13-39); BUN/Creatinine Ratio 24 (6-26); Bilirubin,Total 0.4 mg/dL (0.3-1.0); Blood Urea Nitrogen 24 mg/dL (8-23); Calcium 8.4 mg/dL (8.6-10.3); Carbon Dioxide 30 mEq/L (23-29); Chloride 109 mEq/L (98-107); Globulin 1.8 g/dL (2.4-3.5); Glucose 125 mg/dL (70-105); Magnesium 1.9 mg/dL (1.6-2.6); Osmolality,Calculated 306 (280-300); Potassium 4.4 mEq/L (3.5-5.1); Sodium 145 mEq/L (136-145); Troponin I < 0.03 ng/mL (< 0.04); eGFR For African Americans > 60 (> 60); eGFR For Non-African Americans > 60 (> 60)
[2019-02-18] MEDS: MetroNIDAZOLE 500 MG/100 ML 500 MG/100 ML BAG IVPB SCH ×3 (08:14→23:03)
[2019-02-18] MEDS ORDERED: Fluticasone/Umeclidin/Vilanter [Trelegy Ellipta] IH SCH (09:00)
[2019-02-18 12:16] LABS: Hematocrit 35.4 % (37.5-50.1); Hemoglobin 11.3 g/dL (12.9-16.9)
[2019-02-18] MEDS ORDERED: Ipratropium/Albuterol Neb 3 ML IH PRN (13:08)
[2019-02-18] MEDS: D5% in 0.9% NACL 1,000 ML IVC SCH (15:58)
[2019-02-18] MEDS: Pantoprazole 40 MG VIAL IVP SCH (17:53)
[2019-02-18 18:10] LABS: Hematocrit 32.2 % (37.5-50.1); Hemoglobin 10.4 g/dL (12.9-16.9)
[2019-02-19 00:41] LABS: Basophils % 0.1 %; Eosinophils % 0.1 %; Immature Granulocytes % 0.8 % (0-4); Red Cell Distribution Width 14.2 % (11.5-14.5)
[2019-02-19 00:43] LABS: Hematocrit 30.6 % (37.5-50.1); Hemoglobin 9.8 g/dL (12.9-16.9); Immature Platelets 1.4 % (1.1-6.1); Lymphocytes # 1.1 K/mcL (0.6-4.6); Lymphocytes % 14.4 %; Mean Corpuscular Hemoglobin 29.4 pg (28.0-33.3); Mean Corpuscular Volume 91.9 fL (83.0-100.0); Mean Platelet Volume 9.6 fL (9.4-12.4); Monocytes # 0.5 K/mcL (0.0-1.3); Monocytes % 7.2 %; Neutrophils # 5.7 K/mcL (1.6-8.9); Platelet Count 101 K/mcL (140-400); Red Blood Count 3.33 M/mcL (4.19-5.50); Segmented Neutrophils % 77.4 %; White Blood Count 7.4 K/mcL (4.3-11.1)
[2019-02-19 01:11] LABS: BUN/Creatinine Ratio 28 (6-26); Blood Urea Nitrogen 23 mg/dL (8-23); Calcium 7.8 mg/dL (8.6-10.3); Carbon Dioxide 21 mEq/L (23-29); Chloride 111 mEq/L (98-107); Glucose 107 mg/dL (70-105); Osmolality,Calculated 296 (280-300); Sodium 141 mEq/L (136-145); eGFR For African Americans > 60 (> 60); eGFR For Non-African Americans > 60 (> 60)
[2019-02-19 01:16] LABS: Ovalocytes 1+ (Not Present); Platelet Estimate Decreased (Normal); Tear Drop Cells 1+ (Not Present)
[2019-02-19] MEDS: Pantoprazole 40 MG VIAL IVP SCH (04:59)
[2019-02-19 06:11] LABS: Hematocrit 30.2 % (37.5-50.1); Hemoglobin 9.8 g/dL (12.9-16.9)
[2019-02-19] MEDS: Hydrocortisone Sodium Succ 100 MG/2 ML VIAL IVP SCH (08:58)
[2019-02-19] MEDS: MetroNIDAZOLE 500 MG/100 ML 500 MG/100 ML BAG IVPB SCH ×3 (09:00→23:59)
[2019-02-19] MEDS: Fluticasone Propionate Nasal 50 MCG/SPRAY BOTTLE NS PRN (10:34)
[2019-02-19 12:01] LABS: Hematocrit 30.4 % (37.5-50.1); Hemoglobin 9.7 g/dL (12.9-16.9)
[2019-02-19] MEDS: D5% in 0.9% NACL 1,000 ML IVC SCH (16:42)
[2019-02-20] MEDS: Fluticasone Propionate Nasal 50 MCG/SPRAY BOTTLE NS PRN
[2019-02-20 07:17] LABS: Basophils % 0.5 %; Eosinophils # 0.1 K/mcL (0.0-0.6); Eosinophils % 1.1 %; Hematocrit 30.7 % (37.5-50.1); Hemoglobin 9.8 g/dL (12.9-16.9); Immature Granulocytes % 1.3 % (0-4); Lymphocytes # 1.1 K/mcL (0.6-4.6); Lymphocytes % 17.7 %; Mean Corpuscular HGB Conc 31.9 g/dL (31.6-35.5); Mean Corpuscular Hemoglobin 29.1 pg (28.0-33.3); Mean Corpuscular Volume 91.1 fL (83.0-100.0); Mean Platelet Volume 9.8 fL (9.4-12.4); Monocytes # 0.7 K/mcL (0.0-1.3); Monocytes % 11.2 %; Neutrophils # 4.2 K/mcL (1.6-8.9); Platelet Count 150 K/mcL (140-400); Red Blood Count 3.37 M/mcL (4.19-5.50); Segmented Neutrophils % 68.2 %; White Blood Count 6.1 K/mcL (4.3-11.1)
[2019-02-20 07:39] LABS: BUN/Creatinine Ratio 19 (6-26); Blood Urea Nitrogen 18 mg/dL (8-23); Calcium 7.9 mg/dL (8.6-10.3); Carbon Dioxide 30 mEq/L (23-29); Chloride 107 mEq/L (98-107); Glucose 102 mg/dL (70-105); Osmolality,Calculated 300 (280-300); Potassium 3.4 mEq/L (3.5-5.1); Sodium 144 mEq/L (136-145); eGFR For African Americans > 60 (> 60); eGFR For Non-African Americans > 60 (> 60)
[2019-02-20] MEDS: MetroNIDAZOLE 500 MG/100 ML 500 MG/100 ML BAG IVPB SCH (07:50)
[2019-02-20] MEDS ORDERED: predniSONE 10 MG TABLET PO SCH (09:00)
[2019-02-20] MEDS ORDERED: Metoprolol XL (24 HR) Succ 25 MG TAB.ER.24H PO SCH (09:00)
[2019-02-20] MEDS: D5% in 0.9% NACL 1,000 ML IVC SCH (09:28)
[2019-02-20 09:39] VITALS: BP 126/71
== END 2019-02-20 13:45 | disposition home or self-care (01) | DRG 386 ==
LOC: 3ANU 19:38 → EMEROOARM 19:38 → 3ANU 22:48 → SUATTDRO 02-18 01:14
PROVIDERS: ADMIT Family Medicine; ATTEND Internal Medicine

== ENCOUNTER 2021-10-11 12:13 | Inpatient (IN) ==
[2021-10-11] MEDS ORDERED: methylPREDNISolone 125 MG/2 ML VIAL IVP ONE (12:55)
[2021-10-11] MEDS ORDERED: Ipratropium/Albuterol Neb 3 ML IH ONE (12:55)
[2021-10-11 13:44] LABS: Basophils % 0.3 %; Eosinophils % 0.1 %; Hematocrit 37.6 % (37.5-50.1); Hemoglobin 11.8 g/dL (12.9-16.9); Immature Granulocytes % 1.2 % (0-4); Lymphocytes # 0.7 K/mcL (0.6-4.6); Lymphocytes % 5.9 %; Mean Corpuscular HGB Conc 31.4 g/dL (31.6-35.5); Mean Corpuscular Hemoglobin 28.9 pg (28.0-33.3); Mean Corpuscular Volume 92.2 fL (83.0-100.0); Mean Platelet Volume 9.6 fL (9.4-12.4); Monocytes # 0.9 K/mcL (0.0-1.3); Neutrophils # 9.9 K/mcL (1.6-8.9); Platelet Count 199 K/mcL (140-400); Red Blood Count 4.08 M/mcL (4.19-5.50); Red Cell Distribution Width 13.9 % (11.5-14.5); Segmented Neutrophils % 84.5 %; White Blood Count 11.7 K/mcL (4.3-11.1)
[2021-10-11 14:09] LABS: Troponin I 0.06 ng/mL (< 0.04)
[2021-10-11 14:12] LABS: Albumin 3.2 g/dL (3.5-5.7); Bilirubin,Direct 0.2 mg/dL (0.0-0.2); Bilirubin,Indirect 0.5 mg/dL (0.0-1.0); Bilirubin,Total 0.7 mg/dL (0.3-1.0); Calcium 9.1 mg/dL (8.6-10.3); Globulin 3.1 g/dL (2.4-3.5); Potassium 4.3 mEq/L (3.5-5.1); Total Protein 6.3 g/dL (6.4-8.9)
[2021-10-11] MEDS ORDERED: cefTRIAXone 1,000 MG in 0.9 % Sodium Chloride Mini Bag 100 ML IVPB ONE (14:29)
[2021-10-11] MEDS ORDERED: Azithromycin 500 MG in 0.9 % Sodium Chloride 250 ML IVPB ONE (14:29)
[2021-10-11] MEDS ORDERED: Furosemide 40 MG/4 ML VIAL IVP ONE (15:06)
[2021-10-11] MEDS ORDERED: Ondansetron ODT 4 MG TAB.RAPDIS SL PRN (15:33)
[2021-10-11] MEDS ORDERED: Acetaminophen 325 MG TABLET PO PRN (15:33)
[2021-10-11] MEDS ORDERED: Naloxone 0.4 MG/ML INJ IVP PRN (15:33)
[2021-10-11] MEDS ORDERED: Mag Hydrox/Al Hydrox/Simeth 30 ML UDC PO PRN (15:33)
[2021-10-11] MEDS ORDERED: Melatonin 3 MG TABLET PO PRN (15:33)
[2021-10-11 16:37] LABS: Influenza A PCR Negative (Negative); Influenza B PCR Negative (Negative); Resp. Syncytial Virus PCR Negative (Negative); SARS-CoV-2 by PCR (In House) Negative (Negative)
[2021-10-11] MEDS: Azithromycin 500 MG in 0.9 % Sodium Chloride 250 ML IVPB SCH (16:51)
[2021-10-11] MEDS: Ipratropium/Albuterol Neb 3 ML IH SCH ×3 (17:31→23:34)
[2021-10-11] MEDS: Apixaban 5 MG TABLET PO SCH (20:16)
[2021-10-11] MEDS: Menthol 1 EACH LOZENGE PO PRN (21:56)
[2021-10-12] MEDS: Menthol 1 EACH LOZENGE PO PRN (00:07)
[2021-10-12 01:35] LABS: Basophils % 0.2 %; Hemoglobin 11.3 g/dL (12.9-16.9); Immature Granulocytes % 1.6 % (0-4); Lymphocytes % 5.2 %; Mean Corpuscular HGB Conc 31.4 g/dL (31.6-35.5); Mean Corpuscular Hemoglobin 28.8 pg (28.0-33.3); Mean Corpuscular Volume 91.6 fL (83.0-100.0); Mean Platelet Volume 9.5 fL (9.4-12.4); Monocytes % 1.9 %; Platelet Count 189 K/mcL (140-400); Red Blood Count 3.93 M/mcL (4.19-5.50); Red Cell Distribution Width 13.6 % (11.5-14.5); Segmented Neutrophils % 91.1 %; White Blood Count 10.9 K/mcL (4.3-11.1)
[2021-10-12 01:36] LABS: Lymphocytes # 0.6 K/mcL (0.6-4.6); Monocytes # 0.2 K/mcL (0.0-1.3); Neutrophils # 9.9 K/mcL (1.6-8.9)
[2021-10-12 01:51] LABS: Calcium 8.8 mg/dL (8.6-10.3); Potassium 4.7 mEq/L (3.5-5.1); Troponin I 0.04 ng/mL (< 0.04)
[2021-10-12] MEDS: Ipratropium/Albuterol Neb 3 ML IH SCH ×6 (04:13→23:51)
[2021-10-12] MEDS: Budesonide/Formoterol 160/4.5 1 PUFF INH IH SCH (07:57)
[2021-10-12] MEDS: predniSONE 20 MG TABLET PO SCH (08:47)
[2021-10-12] MEDS: Apixaban 5 MG TABLET PO SCH ×2 (08:47→21:03)
[2021-10-12] MEDS: Torsemide 20 MG TABLET PO SCH (08:47)
[2021-10-12] MEDS: Metoprolol XL (24 HR) Succ 25 MG TAB.ER.24H PO SCH (08:48)
[2021-10-12] MEDS: cefTRIAXone 1,000 MG in Water for inj. (sterile) 10 ML IVP SCH (08:48)
[2021-10-12] MEDS: Azithromycin 500 MG in 0.9 % Sodium Chloride 250 ML IVPB SCH (16:36)
[2021-10-12] MEDS ORDERED: Saline Nasal Spray 44 ML BOTTLE NS PRN (22:12)
[2021-10-12] MEDS: *HR* HYDROcodone/Acet 5/325 mg TABLET PO PRN (22:48)
[2021-10-13 03:53] LABS: Hematocrit 34.1 % (37.5-50.1); Hemoglobin 10.6 g/dL (12.9-16.9); Mean Corpuscular HGB Conc 31.1 g/dL (31.6-35.5); Mean Corpuscular Hemoglobin 29.4 pg (28.0-33.3); Mean Corpuscular Volume 94.5 fL (83.0-100.0); Mean Platelet Volume 9.4 fL (9.4-12.4); Platelet Count 221 K/mcL (140-400); Red Blood Count 3.61 M/mcL (4.19-5.50); Red Cell Distribution Width 13.7 % (11.5-14.5); White Blood Count 13.1 K/mcL (4.3-11.1)
[2021-10-13 04:09] LABS: Calcium 8.5 mg/dL (8.6-10.3); Potassium 4.5 mEq/L (3.5-5.1)
[2021-10-13] MEDS: Ipratropium/Albuterol Neb 3 ML IH SCH ×6 (04:31→20:36)
[2021-10-13] MEDS: Budesonide/Formoterol 160/4.5 1 PUFF INH IH SCH (07:21)
[2021-10-13] MEDS: cefTRIAXone 1,000 MG in Water for inj. (sterile) 10 ML IVP SCH (07:49)
[2021-10-13] MEDS: predniSONE 20 MG TABLET PO SCH (07:51)
[2021-10-13] MEDS: Metoprolol XL (24 HR) Succ 25 MG TAB.ER.24H PO SCH (07:51)
[2021-10-13] MEDS: Apixaban 5 MG TABLET PO SCH ×2 (07:52→21:11)
[2021-10-13] MEDS: Torsemide 20 MG TABLET PO SCH (07:52)
[2021-10-13] MEDS: *HR* HYDROcodone/Acet 5/325 mg TABLET PO PRN (07:55)
[2021-10-13] MEDS: Azithromycin 500 MG in 0.9 % Sodium Chloride 250 ML IVPB SCH (16:54)
[2021-10-14] MEDS: Ipratropium/Albuterol Neb 3 ML IH SCH ×4 (00:19→11:01)
[2021-10-14 03:12] LABS: Basophils # 0.1 K/mcL (0.0-0.2); Basophils % 0.5 %; Hematocrit 36.8 % (37.5-50.1); Hemoglobin 11.1 g/dL (12.9-16.9); Immature Granulocytes % 2.7 % (0-4); Lymphocytes # 0.6 K/mcL (0.6-4.6); Lymphocytes % 4.9 %; Mean Corpuscular HGB Conc 30.2 g/dL (31.6-35.5); Mean Corpuscular Hemoglobin 28.6 pg (28.0-33.3); Mean Corpuscular Volume 94.8 fL (83.0-100.0); Mean Platelet Volume 9.3 fL (9.4-12.4); Monocytes # 0.7 K/mcL (0.0-1.3); Monocytes % 5.8 %; Neutrophils # 10.3 K/mcL (1.6-8.9); Platelet Count 229 K/mcL (140-400); Red Blood Count 3.88 M/mcL (4.19-5.50); Red Cell Distribution Width 13.9 % (11.5-14.5); Segmented Neutrophils % 86.1 %
[2021-10-14 04:50] LABS: Calcium 8.4 mg/dL (8.6-10.3); Potassium 4.5 mEq/L (3.5-5.1)
[2021-10-14] MEDS: *HR* HYDROcodone/Acet 5/325 mg TABLET PO PRN (05:13)
[2021-10-14] MEDS: Apixaban 5 MG TABLET PO SCH (09:48)
[2021-10-14] MEDS: Metoprolol XL (24 HR) Succ 25 MG TAB.ER.24H PO SCH (09:48)
[2021-10-14] MEDS: cefTRIAXone 1,000 MG in Water for inj. (sterile) 10 ML IVP SCH (09:48)
[2021-10-14] MEDS: Torsemide 20 MG TABLET PO SCH (09:48)
[2021-10-14] MEDS: predniSONE 20 MG TABLET PO SCH (09:48)
[2021-10-14 10:38] VITALS: BP 125/86; PULSE 80; TEMP 97.6; O2SAT 97
[2021-10-14] MEDS: Budesonide/Formoterol 160/4.5 1 PUFF INH IH SCH (11:01)
== END 2021-10-14 13:00 | disposition home health service (06) | DRG 190 ==
LOC: 2ANU 12:13 → EMEROOARM 12:13 → SUATTDRO 15:34 → 2ANU 16:08 → SUATTDRO 10-12 17:22
PROVIDERS: ADMIT Family Medicine; ATTEND Family Medicine

== ENCOUNTER 2021-11-03 15:30 | Inpatient (IN) ==
[2021-11-03] MEDS ORDERED: Isovue-370 500 ML BOTTLE IVP ONE (17:01)
[2021-11-03 17:19] LABS: Basophils # 0.1 K/mcL (0.0-0.2); Basophils % 0.6 %; Eosinophils % 0.2 %; Hematocrit 39.5 % (37.5-50.1); Hemoglobin 12.1 g/dL (12.9-16.9); Immature Granulocytes % 2.1 % (0-4); Lymphocytes # 0.9 K/mcL (0.6-4.6); Lymphocytes % 9.1 %; Mean Corpuscular HGB Conc 30.6 g/dL (31.6-35.5); Mean Corpuscular Hemoglobin 28.9 pg (28.0-33.3); Mean Corpuscular Volume 94.5 fL (83.0-100.0); Mean Platelet Volume 8.8 fL (9.4-12.4); Monocytes # 0.7 K/mcL (0.0-1.3); Monocytes % 7.2 %; Neutrophils # 7.8 K/mcL (1.6-8.9); Platelet Count 143 K/mcL (140-400); Red Blood Count 4.18 M/mcL (4.19-5.50); Red Cell Distribution Width 14.8 % (11.5-14.5); Segmented Neutrophils % 80.8 %; White Blood Count 9.7 K/mcL (4.3-11.1)
[2021-11-03 17:27] LABS: VBG HCO3 37 mEq/L (21-27); VBG PCO2 67 mmHg (41-51); VBG PH 7.35 pH Units (7.32-7.42); VBG PO2 43 mmHg (25-50)
[2021-11-03] MEDS ORDERED: methylPREDNISolone 125 MG/2 ML VIAL IVP ONE (17:29)
[2021-11-03] MEDS ORDERED: Azithromycin 500 MG in 0.9 % Sodium Chloride 250 ML IVPB ONE (17:29)
[2021-11-03] MEDS ORDERED: Ipratropium/Albuterol Neb 3 ML IH ONE (17:29)
[2021-11-03 17:33] LABS: INR 1.6; Prothrombin Time 17.3 Seconds (9.4-12.1)
[2021-11-03 17:35] LABS: Activated Partial Thrombo Time 31.6 Seconds (26.0-36.0)
[2021-11-03 17:38] LABS: Calcium 8.7 mg/dL (8.6-10.3); Potassium 4.1 mEq/L (3.5-5.1)
[2021-11-03 17:42] LABS: Bilirubin,Urine Negative (Negative); Blood,Urine Negative (Negative); Clarity,Urine Clear (Clear); Color,Urine Light-Yellow (Yellow); Glucose,Urine (UA) Normal (Normal); Ketones,Urine Negative (Negative); Leukocyte Esterase,Urine Negative (Negative); Nitrite,Urine Negative (Negative); Protein,Urine Trace mg/dL (Neg-Trace); Specific Gravity,Urine 1.018 (1.010-1.025); Urobilinogen,Urine Normal (Normal)
[2021-11-03 17:45] LABS: Troponin I 0.04 ng/mL (< 0.04)
[2021-11-03 18:55] LABS: Influenza A PCR Negative (Negative); Influenza B PCR Negative (Negative); Resp. Syncytial Virus PCR Negative (Negative)
[2021-11-03 19:00] LABS: SARS-CoV-2 by PCR (In House) Negative (Negative)
[2021-11-03] MEDS ORDERED: Naloxone 0.4 MG/ML INJ IVP PRN (21:01)
[2021-11-03] MEDS ORDERED: Melatonin 3 MG TABLET PO PRN (21:01)
[2021-11-03] MEDS ORDERED: Ondansetron 4 MG/2 ML VIAL IVP PRN (21:01)
[2021-11-03 21:47] LABS: Albumin 3.5 g/dL (3.5-5.7); Albumin/Globulin Ratio 1.4 (1.1-2.2); Bilirubin,Direct 0.1 mg/dL (0.0-0.2); Bilirubin,Indirect 0.6 mg/dL (0.0-1.0); Bilirubin,Total 0.7 mg/dL (0.3-1.0); Globulin 2.5 g/dL (2.4-3.5)
[2021-11-03] MEDS ORDERED: Albuterol 2.5 MG/3 ML NEBULIZER IH PRN (22:20)
[2021-11-03] MEDS: Ipratropium/Albuterol Neb 3 ML IH SCH (23:41)
[2021-11-04] MEDS: Ipratropium/Albuterol Neb 3 ML IH SCH ×4 (04:20→23:23)
[2021-11-04 04:41] LABS: ABG Base Excess 8 mEq/L (-2 to 3); ABG HCO3 34 mEq/L (21-27); ABG Oxygen Saturation 98 % (95-98); ABG PCO2 55 mmHg (35-45); ABG PH 7.41 pH Units (7.32-7.45); ABG PO2 108 mmHg (85-104); ABG TCO2 36 mEq/L (20-26)
[2021-11-04] MEDS ORDERED: Perflutren Lipid Microsphere 1.3 ML in 0.9 % Sodium Chloride 8.7 ML IVP PRN (05:02)
[2021-11-04 05:20] LABS: Basophils % 0.3 %; Hematocrit 37.2 % (37.5-50.1); Hemoglobin 11.7 g/dL (12.9-16.9); Immature Granulocytes % 1.4 % (0-4); Lymphocytes # 0.7 K/mcL (0.6-4.6); Lymphocytes % 9.1 %; Mean Corpuscular HGB Conc 31.5 g/dL (31.6-35.5); Mean Corpuscular Hemoglobin 29.6 pg (28.0-33.3); Mean Corpuscular Volume 94.2 fL (83.0-100.0); Mean Platelet Volume 9.2 fL (9.4-12.4); Monocytes # 0.1 K/mcL (0.0-1.3); Monocytes % 1.5 %; Neutrophils # 6.4 K/mcL (1.6-8.9); Platelet Count 138 K/mcL (140-400); Red Blood Count 3.95 M/mcL (4.19-5.50); Red Cell Distribution Width 14.5 % (11.5-14.5); Segmented Neutrophils % 87.7 %; White Blood Count 7.2 K/mcL (4.3-11.1)
[2021-11-04 05:41] LABS: Albumin 3.3 g/dL (3.5-5.7); Albumin/Globulin Ratio 1.4 (1.1-2.2); Bilirubin,Total 0.7 mg/dL (0.3-1.0); Calcium 8.5 mg/dL (8.6-10.3); Globulin 2.4 g/dL (2.4-3.5); Magnesium 2.2 mg/dL (1.6-2.6); Phosphorous 4.3 mg/dL (2.7-4.5); Potassium 4.4 mEq/L (3.5-5.1); Total Protein 5.7 g/dL (6.4-8.9); Troponin I 0.03 ng/mL (< 0.04)
[2021-11-04] MEDS: predniSONE 20 MG TABLET PO SCH (09:08)
[2021-11-04] MEDS ORDERED: *HR* HYDROcodone/Acet 5/325 mg TABLET PO PRN (13:04)
[2021-11-04] MEDS: Metoprolol XL (24 HR) Succ 25 MG TAB.ER.24H PO SCH (16:26)
[2021-11-04] MEDS: Azithromycin 500 MG in 0.9 % Sodium Chloride 250 ML IVPB SCH (18:18)
[2021-11-04] MEDS: Apixaban 5 MG TABLET PO SCH (20:50)
[2021-11-04] MEDS: Budesonide/Formoterol 160/4.5 1 PUFF INH IH SCH (23:23)
[2021-11-05] MEDS: Ipratropium/Albuterol Neb 3 ML IH SCH ×4 (04:06→22:34)
[2021-11-05 05:32] LABS: Hematocrit 35.3 % (37.5-50.1); Hemoglobin 11.1 g/dL (12.9-16.9); Mean Corpuscular HGB Conc 31.4 g/dL (31.6-35.5); Mean Corpuscular Hemoglobin 29.4 pg (28.0-33.3); Mean Corpuscular Volume 93.6 fL (83.0-100.0); Mean Platelet Volume 9.6 fL (9.4-12.4); Platelet Count 140 K/mcL (140-400); Red Blood Count 3.77 M/mcL (4.19-5.50); Red Cell Distribution Width 14.6 % (11.5-14.5)
[2021-11-05 05:39] LABS: Calcium 8.4 mg/dL (8.6-10.3); Magnesium 2.3 mg/dL (1.6-2.6); Potassium 4.5 mEq/L (3.5-5.1)
[2021-11-05 05:52] LABS: White Blood Count 11.3 K/mcL (4.3-11.1)
[2021-11-05] MEDS: Metoprolol XL (24 HR) Succ 25 MG TAB.ER.24H PO SCH (09:01)
[2021-11-05] MEDS: Apixaban 5 MG TABLET PO SCH ×2 (09:01→21:01)
[2021-11-05] MEDS: predniSONE 20 MG TABLET PO SCH (09:02)
[2021-11-05] MEDS ORDERED: *HR* LORazepam 2 MG/ML VIAL IVP ONE (09:49)
[2021-11-05] MEDS: Budesonide/Formoterol 160/4.5 1 PUFF INH IH SCH ×2 (10:07→22:34)
[2021-11-05 10:10] LABS: ABG Base Excess 7 mEq/L (-2 to 3); ABG HCO3 33 mEq/L (21-27); ABG Oxygen Saturation 97 % (95-98); ABG PCO2 57 mmHg (35-45); ABG PH 7.38 pH Units (7.32-7.45); ABG PO2 100 mmHg (85-104); ABG TCO2 35 mEq/L (20-26)
[2021-11-05 13:10] LABS: Sodium, Urine 10.3 mEq/L
[2021-11-05] MEDS: Azithromycin 500 MG in 0.9 % Sodium Chloride 250 ML IVPB SCH (18:35)
[2021-11-06 03:20] LABS: Hemoglobin 10.5 g/dL (12.9-16.9); Mean Corpuscular HGB Conc 30.9 g/dL (31.6-35.5); Mean Corpuscular Hemoglobin 29.2 pg (28.0-33.3); Mean Corpuscular Volume 94.4 fL (83.0-100.0); Mean Platelet Volume 9.7 fL (9.4-12.4); Platelet Count 136 K/mcL (140-400); Red Cell Distribution Width 14.5 % (11.5-14.5); White Blood Count 7.7 K/mcL (4.3-11.1)
[2021-11-06] MEDS: Ipratropium/Albuterol Neb 3 ML IH SCH ×4 (03:48→19:54)
[2021-11-06 04:50] LABS: Calcium 8.1 mg/dL (8.6-10.3); Magnesium 2.3 mg/dL (1.6-2.6); Potassium 4.3 mEq/L (3.5-5.1)
[2021-11-06] MEDS: Metoprolol XL (24 HR) Succ 25 MG TAB.ER.24H PO SCH (08:59)
[2021-11-06] MEDS: Apixaban 5 MG TABLET PO SCH ×2 (08:59→20:47)
[2021-11-06] MEDS: predniSONE 20 MG TABLET PO SCH (09:00)
[2021-11-06] MEDS: Budesonide/Formoterol 160/4.5 1 PUFF INH IH SCH ×2 (11:00→23:36)
[2021-11-06 11:25] LABS: ABG Base Excess 9 mEq/L (-2 to 3); ABG HCO3 36 mEq/L (21-27); ABG Oxygen Saturation 99 % (95-98); ABG PCO2 58 mmHg (35-45); ABG PO2 129 mmHg (85-104); ABG TCO2 37 mEq/L (20-26)
[2021-11-06] MEDS: Azithromycin 500 MG in 0.9 % Sodium Chloride 250 ML IVPB SCH (18:02)
[2021-11-07] MEDS: Ipratropium/Albuterol Neb 3 ML IH SCH ×4 (06:05→23:06)
[2021-11-07] MEDS: Metoprolol XL (24 HR) Succ 25 MG TAB.ER.24H PO SCH (08:33)
[2021-11-07 08:34] LABS: Basophils % 0.2 %; Hematocrit 35.3 % (37.5-50.1); Hemoglobin 11.3 g/dL (12.9-16.9); Immature Granulocytes % 1.4 % (0-4); Lymphocytes # 0.9 K/mcL (0.6-4.6); Lymphocytes % 9.1 %; Mean Corpuscular Hemoglobin 29.7 pg (28.0-33.3); Mean Corpuscular Volume 92.7 fL (83.0-100.0); Mean Platelet Volume 9.6 fL (9.4-12.4); Monocytes # 0.8 K/mcL (0.0-1.3); Monocytes % 7.7 %; Neutrophils # 8.2 K/mcL (1.6-8.9); Platelet Count 149 K/mcL (140-400); Red Blood Count 3.81 M/mcL (4.19-5.50); Red Cell Distribution Width 14.5 % (11.5-14.5); Segmented Neutrophils % 81.6 %; White Blood Count 10.1 K/mcL (4.3-11.1)
[2021-11-07] MEDS: Apixaban 5 MG TABLET PO SCH ×2 (08:34→20:42)
[2021-11-07] MEDS: predniSONE 20 MG TABLET PO SCH (08:34)
[2021-11-07 08:51] LABS: BUN/Creatinine Ratio 28 (6-26); Blood Urea Nitrogen 38 mg/dL (8-23); Calcium 8.2 mg/dL (8.6-10.3); Carbon Dioxide 31 mEq/L (23-29); Chloride 104 mEq/L (98-107); Glucose 134 mg/dL (70-105); Osmolality,Calculated 297 (280-300); Potassium 4.4 mEq/L (3.5-5.1); Sodium 138 mEq/L (136-145); eGFR For African Americans > 60 (> 60); eGFR For Non-African Americans 50 (> 60)
[2021-11-07] MEDS: Budesonide/Formoterol 160/4.5 1 PUFF INH IH SCH ×2 (11:14→23:06)
[2021-11-07] MEDS: Azithromycin 500 MG in 0.9 % Sodium Chloride 250 ML IVPB SCH (17:21)
[2021-11-08] MEDS: Ipratropium/Albuterol Neb 3 ML IH SCH ×4 (03:40→23:25)
[2021-11-08 04:19] LABS: Basophils % 0.4 %; Hematocrit 33.8 % (37.5-50.1); Hemoglobin 10.7 g/dL (12.9-16.9); Immature Granulocytes % 3.4 % (0-4); Lymphocytes # 0.8 K/mcL (0.6-4.6); Lymphocytes % 9.7 %; Mean Corpuscular HGB Conc 31.7 g/dL (31.6-35.5); Mean Corpuscular Hemoglobin 29.6 pg (28.0-33.3); Mean Corpuscular Volume 93.6 fL (83.0-100.0); Mean Platelet Volume 9.8 fL (9.4-12.4); Monocytes # 0.5 K/mcL (0.0-1.3); Monocytes % 6.1 %; Neutrophils # 6.2 K/mcL (1.6-8.9); Nucleated Red Blood Cells 0.3 /100 WBC (0); Platelet Count 157 K/mcL (140-400); Red Blood Count 3.61 M/mcL (4.19-5.50); Red Cell Distribution Width 14.5 % (11.5-14.5); Segmented Neutrophils % 80.4 %; White Blood Count 7.7 K/mcL (4.3-11.1)
[2021-11-08 04:35] LABS: Calcium 8.4 mg/dL (8.6-10.3); Potassium 4.7 mEq/L (3.5-5.1)
[2021-11-08] MEDS: Apixaban 5 MG TABLET PO SCH ×2 (08:42→22:01)
[2021-11-08] MEDS: Metoprolol XL (24 HR) Succ 25 MG TAB.ER.24H PO SCH (08:42)
[2021-11-08] MEDS: predniSONE 20 MG TABLET PO SCH (08:43)
[2021-11-08] MEDS: Acetaminophen 325 MG TABLET PO PRN (09:43)
[2021-11-08] MEDS: Budesonide/Formoterol 160/4.5 1 PUFF INH IH SCH ×2 (10:57→23:26)
[2021-11-08] MEDS: Azithromycin 500 MG in 0.9 % Sodium Chloride 250 ML IVPB SCH (17:08)
[2021-11-09] MEDS: Ipratropium/Albuterol Neb 3 ML IH SCH ×4 (04:26→23:20)
[2021-11-09] MEDS: Apixaban 5 MG TABLET PO SCH ×2 (08:58→20:26)
[2021-11-09] MEDS: Metoprolol XL (24 HR) Succ 25 MG TAB.ER.24H PO SCH (08:58)
[2021-11-09 09:47] LABS: Calcium 8.6 mg/dL (8.6-10.3); Potassium 4.7 mEq/L (3.5-5.1)
[2021-11-09] MEDS: Budesonide/Formoterol 160/4.5 1 PUFF INH IH SCH ×2 (10:47→23:20)
[2021-11-10] MEDS: Ipratropium/Albuterol Neb 3 ML IH SCH ×3 (03:50→15:58)
[2021-11-10] MEDS: Metoprolol XL (24 HR) Succ 25 MG TAB.ER.24H PO SCH (08:35)
[2021-11-10] MEDS: Apixaban 5 MG TABLET PO SCH (08:35)
[2021-11-10 10:45] VITALS: BP 146/79; PULSE 75; TEMP 97.4
[2021-11-10] MEDS: Acetaminophen 325 MG TABLET PO PRN (10:56)
[2021-11-10] MEDS: Budesonide/Formoterol 160/4.5 1 PUFF INH IH SCH (11:37)
[2021-11-10 12:22] VITALS: O2SAT 100
[2021-11-10 12:39] LABS: Influenza A PCR Negative (Negative); Influenza B PCR Negative (Negative); Resp. Syncytial Virus PCR Negative (Negative)
[2021-11-10 12:44] LABS: SARS-CoV-2 by PCR (In House) Negative (Negative)
== END 2021-11-10 16:31 | disposition other institution (70) | DRG 190 ==
LOC: EMEROOARM 15:30 → 3BNU 15:30 → SUATTDRO 19:41 → 3BNU 20:53 → SUATTDRO 11-05 14:05
PROVIDERS: ADMIT Internal Medicine; ATTEND Nurse Practitioner

== ENCOUNTER 2022-02-18 12:19 | Inpatient (IN) ==
[2022-02-18] MEDS ORDERED: Naloxone 0.4 MG/ML INJ IVP PRN ×2 (16:54→16:56)
[2022-02-18] MEDS ORDERED: Ondansetron 4 MG/2 ML VIAL IVP PRN (16:56)
[2022-02-18] MEDS ORDERED: 0.9 % Sodium Chloride 1,000 ML IVC SCH (17:00)
[2022-02-18] MEDS ORDERED: Dextrose Gel 15 GM/37.5 ML TUBE PO PRN ×2 (17:09)
[2022-02-18] MEDS ORDERED: *HR* Dextrose 50 % in Water (Syg) 50 ML SYRINGE IVP PRN (17:09)
[2022-02-18] MEDS ORDERED: D5% in Water 1,000 ML IVC PRN (17:09)
[2022-02-18] MEDS ORDERED: *HR* HYDROcodone/Acet 5/325 mg TABLET PO PRN (17:40)
[2022-02-18 17:47] LABS: ABG Base Excess 8 mEq/L (-2 to 3); ABG HCO3 34 mEq/L (21-27); ABG Oxygen Saturation 98 % (95-98); ABG PCO2 55 mmHg (35-45); ABG PO2 102 mmHg (85-104); ABG TCO2 35 mEq/L (20-26)
[2022-02-18] MEDS: Insulin LISPRO 300 UNITS/3 ML VIAL SUBQ SCH ×2 (18:04→23:56)
[2022-02-18 18:22] LABS: Folate 9.3 ng/mL (3.0-16.0)
[2022-02-18 18:27] LABS: Albumin 3.5 g/dL (3.5-5.7); Albumin/Globulin Ratio 1.5 (1.1-2.2); Bilirubin,Total 0.5 mg/dL (0.3-1.0); Calcium 8.5 mg/dL (8.6-10.3); Globulin 2.4 g/dL (2.4-3.5); Magnesium 2.2 mg/dL (1.6-2.6); Total Protein 5.9 g/dL (6.4-8.9)
[2022-02-18 18:28] LABS: Troponin I 0.03 ng/mL (< 0.04)
[2022-02-18 18:42] LABS: Thyroid Stimulating Hormone 2.635 mcIU/mL (0.340-5.600)
[2022-02-18] MEDS: Apixaban 5 MG TABLET PO SCH (19:47)
[2022-02-18 22:13] LABS: Bilirubin,Urine Negative (Negative); Blood,Urine Negative (Negative); Clarity,Urine Clear (Clear); Color,Urine Light-Yellow (Yellow); Glucose,Urine (UA) Normal (Normal); Ketones,Urine Negative (Negative); Leukocyte Esterase,Urine Negative (Negative); Nitrite,Urine Negative (Negative); Protein,Urine Trace mg/dL (Neg-Trace); Specific Gravity,Urine 1.017 (1.010-1.025); Urobilinogen,Urine Normal (Normal)
[2022-02-19 00:03] LABS: ABG Base Excess 6 mEq/L (-2 to 3); ABG HCO3 32 mEq/L (21-27); ABG Oxygen Saturation 98 % (95-98); ABG PCO2 53 mmHg (35-45); ABG PH 7.39 pH Units (7.32-7.45); ABG PO2 104 mmHg (85-104); ABG TCO2 34 mEq/L (20-26)
[2022-02-19 00:37] LABS: Basophils % 0.2 %; Eosinophils % 0.5 %; Hematocrit 35.2 % (37.5-50.1); Hemoglobin 11.2 g/dL (12.9-16.9); Immature Granulocytes % 1.3 % (0-4); Lymphocytes # 1.6 K/mcL (0.6-4.6); Lymphocytes % 18.5 %; Mean Corpuscular HGB Conc 31.8 g/dL (31.6-35.5); Mean Corpuscular Hemoglobin 29.8 pg (28.0-33.3); Mean Corpuscular Volume 93.6 fL (83.0-100.0); Mean Platelet Volume 9.3 fL (9.4-12.4); Monocytes # 0.9 K/mcL (0.0-1.3); Monocytes % 10.6 %; Neutrophils # 5.9 K/mcL (1.6-8.9); Platelet Count 202 K/mcL (140-400); Red Blood Count 3.76 M/mcL (4.19-5.50); Red Cell Distribution Width 13.2 % (11.5-14.5); Segmented Neutrophils % 68.9 %; White Blood Count 8.5 K/mcL (4.3-11.1)
[2022-02-19 00:44] LABS: Albumin 3.5 g/dL (3.5-5.7); Albumin/Globulin Ratio 1.5 (1.1-2.2); Bilirubin,Total 0.5 mg/dL (0.3-1.0); Calcium 8.4 mg/dL (8.6-10.3); Globulin 2.4 g/dL (2.4-3.5); Magnesium 2.1 mg/dL (1.6-2.6); Potassium 3.8 mEq/L (3.5-5.1); Total Protein 5.9 g/dL (6.4-8.9)
[2022-02-19] MEDS ORDERED: Acetaminophen IV 1,000 MG/100 ML BAG IVPB ONE (00:55)
[2022-02-19 00:56] LABS: Amphetamine Screen,Urine Negative ng/mL (Cutoff=1000); Barbiturate Screen,Urine Negative ng/mL (Cutoff=200); Benzodiazepines Screen,Urine Negative ng/mL (Cutoff=200); Cannabinoid Screen,Urine Negative ng/mL (Cutoff = 50); Cocaine Screen,Urine Negative ng/mL (Cutoff= 300); Opiate Screen,Urine Positive ng/mL (Cutoff=300); Phencyclidine Screen,Urine Negative ng/mL (Cutoff=25)
[2022-02-19] MEDS: Insulin LISPRO 300 UNITS/3 ML VIAL SUBQ SCH ×3 (05:00→18:08)
[2022-02-19] MEDS ORDERED: *HR* Heparin 5,000 UNIT/ML VIAL IVP ONE (09:47)
[2022-02-19] MEDS ORDERED: *HR* Heparin 5,000 UNIT/ML VIAL IVP PRN ×2 (09:47)
[2022-02-19] MEDS: Apixaban 5 MG TABLET PO SCH (09:52)
[2022-02-19] MEDS: FLUoxetine 20 MG CAPSULE PO SCH (09:58)
[2022-02-19] MEDS ORDERED: Heparin 25,000UNIT/250ML 1/2NS 25,000 UNIT/250 ML IV.SOLN IVC SCH (10:00)
[2022-02-19 11:49] LABS: Estimated Average Glucose 134 mg/dl; Hemoglobin A1C 6.3 %
[2022-02-19 12:05] LABS: Basophils % 0.3 %; Eosinophils # 0.1 K/mcL (0.0-0.6); Eosinophils % 1.2 %; Hematocrit 37.8 % (37.5-50.1); Hemoglobin 11.7 g/dL (12.9-16.9); Immature Granulocytes % 0.9 % (0-4); Lymphocytes # 1.9 K/mcL (0.6-4.6); Lymphocytes % 18.2 %; Mean Corpuscular Volume 93.6 fL (83.0-100.0); Mean Platelet Volume 9.6 fL (9.4-12.4); Monocytes # 1.1 K/mcL (0.0-1.3); Monocytes % 10.3 %; Neutrophils # 7.1 K/mcL (1.6-8.9); Platelet Count 212 K/mcL (140-400); Red Blood Count 4.04 M/mcL (4.19-5.50); Red Cell Distribution Width 13.2 % (11.5-14.5); Segmented Neutrophils % 69.1 %; White Blood Count 10.3 K/mcL (4.3-11.1)
[2022-02-19] MEDS: Metoprolol XL (24 HR) Succ 25 MG TAB.ER.24H PO SCH (12:35)
[2022-02-19] MEDS: Aspirin 81 MG TAB.CHEW PO SCH (12:35)
[2022-02-19 12:43] LABS: INR 1.4; Prothrombin Time 15.9 Seconds (9.4-12.1)
[2022-02-19 12:48] LABS: Heparin anti-factor XA UFH > 2.00 IU/mL (0.30-0.70)
[2022-02-19 13:29] LABS: Activated Partial Thrombo Time 34.9 Seconds (26.0-36.0)
[2022-02-19] MEDS ORDERED: Ipratropium/Albuterol Neb 3 ML ONE (13:36)
[2022-02-19] MEDS: Ipratropium/Albuterol Neb 3 ML IH SCH ×4 (13:37→23:43)
[2022-02-19 13:42] LABS: ABG Base Excess 2 mEq/L (-2 to 3); ABG HCO3 29 mEq/L (21-27); ABG Oxygen Saturation 97 % (95-98); ABG PCO2 51 mmHg (35-45); ABG PH 7.36 pH Units (7.32-7.45); ABG PO2 94 mmHg (85-104); ABG TCO2 30 mEq/L (20-26)
[2022-02-19] MEDS: Heparin 25,000UNIT/250ML 1/2NS 25,000 UNIT/250 ML IV.SOLN IVC SCH (14:54)
[2022-02-19] MEDS ORDERED: methylPREDNISolone 125 MG/2 ML VIAL IVP ONE (16:34)
[2022-02-19] MEDS ORDERED: 0.9 % Sodium Chloride 1,000 ML IVC SCH (18:00)
[2022-02-19] MEDS: 0.9 % Sodium Chloride 1,000 ML IVC SCH (18:08)
[2022-02-20] MEDS: Insulin LISPRO 300 UNITS/3 ML VIAL SUBQ SCH ×4 (00:06→16:43)
[2022-02-20] MEDS: MethylPREDNISolone 40 MG/ML VIAL IVP SCH ×3 (00:36→17:07)
[2022-02-20] MEDS: Ipratropium/Albuterol Neb 3 ML IH SCH ×6 (03:58→23:24)
[2022-02-20 05:53] LABS: Calcium 8.9 mg/dL (8.6-10.3); Chol/HDL Ratio 2.6 (0-4.9); Potassium 4.4 mEq/L (3.5-5.1)
[2022-02-20] MEDS: Metoprolol XL (24 HR) Succ 25 MG TAB.ER.24H PO SCH (08:25)
[2022-02-20] MEDS: Aspirin 81 MG TAB.CHEW PO SCH (08:25)
[2022-02-20] MEDS: Heparin 25,000UNIT/250ML 1/2NS 25,000 UNIT/250 ML IV.SOLN IVC SCH (10:03)
[2022-02-20] MEDS: Acetaminophen 325 MG TABLET PO PRN (10:45)
[2022-02-20] MEDS: Methyl Salicylate/Menthol 85 APPL/85 GM TUBE TP PRN (10:46)
[2022-02-20] MEDS: 0.9 % Sodium Chloride 1,000 ML IVC SCH (13:44)
[2022-02-21] MEDS: Insulin LISPRO 300 UNITS/3 ML VIAL SUBQ SCH ×4 (00:27→16:57)
[2022-02-21] MEDS: Ipratropium/Albuterol Neb 3 ML IH SCH ×6 (04:58→23:24)
[2022-02-21] MEDS: MethylPREDNISolone 40 MG/ML VIAL IVP SCH (05:37)
[2022-02-21 05:41] LABS: Basophils % 0.1 %; Hematocrit 31.5 % (37.5-50.1); Immature Granulocytes % 0.6 % (0-4); Lymphocytes # 0.5 K/mcL (0.6-4.6); Lymphocytes % 2.9 %; Mean Corpuscular HGB Conc 31.1 g/dL (31.6-35.5); Mean Corpuscular Hemoglobin 29.3 pg (28.0-33.3); Mean Corpuscular Volume 94.3 fL (83.0-100.0); Mean Platelet Volume 9.9 fL (9.4-12.4); Monocytes % 3.5 %; Neutrophils # 17.2 K/mcL (1.6-8.9); Platelet Count 198 K/mcL (140-400); Red Blood Count 3.34 M/mcL (4.19-5.50); Red Cell Distribution Width 13.3 % (11.5-14.5); Segmented Neutrophils % 92.9 %
[2022-02-21 05:42] LABS: Hemoglobin 9.8 g/dL (12.9-16.9); Monocytes # 0.7 K/mcL (0.0-1.3); White Blood Count 18.5 K/mcL (4.3-11.1)
[2022-02-21 06:09] LABS: Calcium 8.5 mg/dL (8.6-10.3); Potassium 4.5 mEq/L (3.5-5.1)
[2022-02-21] MEDS: Acetaminophen 325 MG TABLET PO PRN ×2 (10:06→19:04)
[2022-02-21] MEDS: Metoprolol XL (24 HR) Succ 25 MG TAB.ER.24H PO SCH (10:06)
[2022-02-21] MEDS: predniSONE 20 MG TABLET PO SCH (10:07)
[2022-02-21] MEDS: Apixaban 2.5 MG TABLET PO SCH ×2 (10:08→20:34)
[2022-02-21] MEDS: Methyl Salicylate/Menthol 85 APPL/85 GM TUBE TP PRN (10:08)
[2022-02-21] MEDS: Torsemide 20 MG TABLET PO SCH (14:24)
[2022-02-22] MEDS: Insulin LISPRO 300 UNITS/3 ML VIAL SUBQ SCH ×4 (03:44→20:23)
[2022-02-22] MEDS: Ipratropium/Albuterol Neb 3 ML IH SCH ×6 (04:17→23:16)
[2022-02-22] MEDS: Apixaban 2.5 MG TABLET PO SCH ×2 (07:44→20:42)
[2022-02-22] MEDS: predniSONE 20 MG TABLET PO SCH (07:53)
[2022-02-22] MEDS: Metoprolol XL (24 HR) Succ 25 MG TAB.ER.24H PO SCH (07:53)
[2022-02-22] MEDS: FLUoxetine 20 MG CAPSULE PO SCH (07:53)
[2022-02-22] MEDS: Torsemide 20 MG TABLET PO SCH (07:59)
[2022-02-22 11:58] LABS: Basophils % 0.2 %; Hematocrit 34.3 % (37.5-50.1); Hemoglobin 10.6 g/dL (12.9-16.9); Immature Granulocytes % 1.5 % (0-4); Lymphocytes # 0.5 K/mcL (0.6-4.6); Lymphocytes % 3.6 %; Mean Corpuscular HGB Conc 30.9 g/dL (31.6-35.5); Mean Corpuscular Volume 93.7 fL (83.0-100.0); Mean Platelet Volume 9.7 fL (9.4-12.4); Monocytes # 0.7 K/mcL (0.0-1.3); Monocytes % 4.8 %; Neutrophils # 12.2 K/mcL (1.6-8.9); Platelet Count 215 K/mcL (140-400); Red Blood Count 3.66 M/mcL (4.19-5.50); Red Cell Distribution Width 13.5 % (11.5-14.5); Segmented Neutrophils % 89.9 %; White Blood Count 13.6 K/mcL (4.3-11.1)
[2022-02-22 12:18] LABS: Calcium 8.6 mg/dL (8.6-10.3); Potassium 4.2 mEq/L (3.5-5.1)
[2022-02-22 13:41] LABS: ABG Base Excess 4 mEq/L (-2 to 3); ABG HCO3 29 mEq/L (21-27); ABG Oxygen Saturation 99 % (95-98); ABG PCO2 43 mmHg (35-45); ABG PH 7.44 pH Units (7.32-7.45); ABG PO2 117 mmHg (85-104); ABG TCO2 30 mEq/L (20-26)
[2022-02-22] MEDS ORDERED: Ipratropium/Albuterol Neb 3 ML ONE (20:02)
[2022-02-22] MEDS ORDERED: Apixaban 2.5 MG TABLET ONE (20:35)
[2022-02-22] MEDS ORDERED: Acetaminophen 325 MG TABLET PO ONE (20:35)
[2022-02-22] MEDS: Acetaminophen 325 MG TABLET PO PRN (20:43)
[2022-02-23] MEDS: Insulin LISPRO 300 UNITS/3 ML VIAL SUBQ SCH ×4 (00:08→18:10)
[2022-02-23] MEDS: Ipratropium/Albuterol Neb 3 ML IH SCH ×6 (04:21→23:20)
[2022-02-23 05:59] LABS: ABG Base Excess 8 mEq/L (-2 to 3); ABG HCO3 34 mEq/L (21-27); ABG Oxygen Saturation 96 % (95-98); ABG PCO2 50 mmHg (35-45); ABG PH 7.43 pH Units (7.32-7.45); ABG PO2 81 mmHg (85-104); ABG TCO2 35 mEq/L (20-26)
[2022-02-23] MEDS: Apixaban 2.5 MG TABLET PO SCH ×2 (08:26→21:09)
[2022-02-23] MEDS: predniSONE 20 MG TABLET PO SCH (08:26)
[2022-02-23] MEDS: Metoprolol XL (24 HR) Succ 25 MG TAB.ER.24H PO SCH (08:27)
[2022-02-23] MEDS: FLUoxetine 20 MG CAPSULE PO SCH (08:27)
[2022-02-23] MEDS: Torsemide 20 MG TABLET PO SCH (08:28)
[2022-02-23 11:35] LABS: Basophils % 0.3 %; Eosinophils % 0.1 %; Hematocrit 31.5 % (37.5-50.1); Hemoglobin 9.9 g/dL (12.9-16.9); Immature Granulocytes % 2.4 % (0-4); Lymphocytes # 0.7 K/mcL (0.6-4.6); Lymphocytes % 6.7 %; Mean Corpuscular HGB Conc 31.4 g/dL (31.6-35.5); Mean Corpuscular Hemoglobin 29.7 pg (28.0-33.3); Mean Corpuscular Volume 94.6 fL (83.0-100.0); Mean Platelet Volume 9.4 fL (9.4-12.4); Monocytes # 0.7 K/mcL (0.0-1.3); Monocytes % 6.7 %; Platelet Count 178 K/mcL (140-400); Red Blood Count 3.33 M/mcL (4.19-5.50); Red Cell Distribution Width 13.6 % (11.5-14.5); Segmented Neutrophils % 83.8 %; White Blood Count 10.8 K/mcL (4.3-11.1)
[2022-02-23 11:54] LABS: Calcium 8.4 mg/dL (8.6-10.3); Potassium 3.9 mEq/L (3.5-5.1)
[2022-02-23] MEDS ORDERED: Fluticasone Propionate Nasal 50 MCG/SPRAY BOTTLE NS PRN (15:54)
[2022-02-24] MEDS: Insulin LISPRO 300 UNITS/3 ML VIAL SUBQ SCH ×4 (02:48→18:20)
[2022-02-24] MEDS: Ipratropium/Albuterol Neb 3 ML IH SCH ×6 (04:22→22:44)
[2022-02-24] MEDS: predniSONE 20 MG TABLET PO SCH (08:56)
[2022-02-24] MEDS: Apixaban 2.5 MG TABLET PO SCH ×2 (08:57→20:42)
[2022-02-24] MEDS: Metoprolol XL (24 HR) Succ 25 MG TAB.ER.24H PO SCH (08:57)
[2022-02-24] MEDS: lisinopriL 5 MG TABLET PO SCH (08:57)
[2022-02-24] MEDS: FLUoxetine 20 MG CAPSULE PO SCH (08:58)
[2022-02-24] MEDS: Acetaminophen 325 MG TABLET PO PRN ×2 (11:31→18:09)
[2022-02-24] MEDS: Torsemide 20 MG TABLET PO SCH (12:02)
[2022-02-25] MEDS: Ipratropium/Albuterol Neb 3 ML IH SCH ×6 (04:09→23:10)
[2022-02-25] MEDS: FLUoxetine 20 MG CAPSULE PO SCH (08:44)
[2022-02-25] MEDS: Apixaban 2.5 MG TABLET PO SCH ×2 (08:44→20:24)
[2022-02-25] MEDS: predniSONE 20 MG TABLET PO SCH (08:44)
[2022-02-25] MEDS: lisinopriL 5 MG TABLET PO SCH (08:44)
[2022-02-25] MEDS: Metoprolol XL (24 HR) Succ 25 MG TAB.ER.24H PO SCH (08:44)
[2022-02-25] MEDS: Torsemide 20 MG TABLET PO SCH (08:49)
[2022-02-25] MEDS: Acetaminophen 325 MG TABLET PO PRN (20:28)
[2022-02-26] MEDS: Ipratropium/Albuterol Neb 3 ML IH SCH ×5 (03:35→19:55)
[2022-02-26] MEDS: Metoprolol XL (24 HR) Succ 25 MG TAB.ER.24H PO SCH (08:09)
[2022-02-26] MEDS: FLUoxetine 20 MG CAPSULE PO SCH (08:09)
[2022-02-26] MEDS: Apixaban 2.5 MG TABLET PO SCH ×2 (08:09→20:51)
[2022-02-26] MEDS: Torsemide 20 MG TABLET PO SCH (08:09)
[2022-02-26] MEDS: lisinopriL 5 MG TABLET PO SCH (08:09)
[2022-02-26] MEDS: Acetaminophen 325 MG TABLET PO PRN ×2 (08:28→20:56)
[2022-02-27] MEDS: Ipratropium/Albuterol Neb 3 ML IH SCH ×7 (00:33→23:47)
[2022-02-27] MEDS: FLUoxetine 20 MG CAPSULE PO SCH (08:22)
[2022-02-27] MEDS: Metoprolol XL (24 HR) Succ 25 MG TAB.ER.24H PO SCH (08:22)
[2022-02-27] MEDS: lisinopriL 5 MG TABLET PO SCH (08:23)
[2022-02-27] MEDS: Torsemide 20 MG TABLET PO SCH (08:23)
[2022-02-27] MEDS: Apixaban 2.5 MG TABLET PO SCH ×2 (08:23→20:15)
[2022-02-27] MEDS: Acetaminophen 325 MG TABLET PO PRN ×2 (11:50→20:14)
[2022-02-28] MEDS: Ipratropium/Albuterol Neb 3 ML IH SCH ×2 (03:47→07:49)
[2022-02-28] MEDS: Apixaban 2.5 MG TABLET PO SCH ×2 (08:38→20:06)
[2022-02-28] MEDS: FLUoxetine 20 MG CAPSULE PO SCH (08:38)
[2022-02-28] MEDS: Torsemide 20 MG TABLET PO SCH (08:38)
[2022-02-28] MEDS: Metoprolol XL (24 HR) Succ 25 MG TAB.ER.24H PO SCH (08:42)
[2022-02-28] MEDS: lisinopriL 5 MG TABLET PO SCH (08:42)
[2022-02-28 10:18] LABS: White Blood Count 12.4 K/mcL (4.3-11.1)
[2022-02-28 10:19] LABS: Hematocrit 31.6 % (37.5-50.1); Hemoglobin 9.7 g/dL (12.9-16.9); Mean Corpuscular HGB Conc 30.7 g/dL (31.6-35.5); Mean Corpuscular Volume 94.3 fL (83.0-100.0); Mean Platelet Volume 9.4 fL (9.4-12.4); Platelet Count 195 K/mcL (140-400); Red Blood Count 3.35 M/mcL (4.19-5.50); Red Cell Distribution Width 13.4 % (11.5-14.5)
[2022-02-28 10:31] LABS: Calcium 8.4 mg/dL (8.6-10.3); Potassium 4.3 mEq/L (3.5-5.1)
[2022-02-28 10:55] LABS: Eosinophils # 0.3 K/mcL (0.0-0.6); Monocytes # 0.5 K/mcL (0.0-1.3); Neutrophils # 10.2 K/mcL (1.6-8.9); Platelet Estimate Normal (Normal)
[2022-02-28] MEDS: Acetaminophen 325 MG TABLET PO PRN ×2 (11:53→18:15)
[2022-02-28] MEDS ORDERED: Ipratropium/Albuterol Neb 3 ML IH PRN (12:00)
[2022-02-28] MEDS ORDERED: Ondansetron ODT 4 MG TAB.RAPDIS SL PRN (20:19)
[2022-03-01] MEDS: lisinopriL 5 MG TABLET PO SCH (09:34)
[2022-03-01] MEDS: FLUoxetine 20 MG CAPSULE PO SCH (09:34)
[2022-03-01] MEDS: Metoprolol XL (24 HR) Succ 25 MG TAB.ER.24H PO SCH (09:34)
[2022-03-01] MEDS: Torsemide 20 MG TABLET PO SCH (09:35)
[2022-03-01] MEDS: Apixaban 2.5 MG TABLET PO SCH ×2 (09:35→20:46)
[2022-03-01 22:41] VITALS: PULSE 60
[2022-03-02] MEDS ORDERED: Albumin 25% 25gram/100mL 25 GM/100 ML IV.SOLN IVPB ONE (01:19)
[2022-03-02] MEDS: Metoprolol XL (24 HR) Succ 25 MG TAB.ER.24H PO SCH (08:03)
[2022-03-02] MEDS: FLUoxetine 20 MG CAPSULE PO SCH (08:03)
[2022-03-02] MEDS: Apixaban 2.5 MG TABLET PO SCH (08:04)
[2022-03-02] MEDS: Torsemide 20 MG TABLET PO SCH (08:04)
[2022-03-02] MEDS: lisinopriL 5 MG TABLET PO SCH (08:04)
[2022-03-02 10:10] VITALS: BP 126/81; TEMP 98.2; O2SAT 99
[2022-03-02 12:20] LABS: Influenza A PCR Negative (Negative); Influenza B PCR Negative (Negative); Resp. Syncytial Virus PCR Negative (Negative)
[2022-03-02 12:33] LABS: SARS-CoV-2 by PCR (In House) Negative (Negative)
== END 2022-03-02 14:52 | disposition critical access hospital (66) | DRG 190 ==
LOC: 3BNU → SUATTDRO 16:02
PROVIDERS: ADMIT Pharmacist; ATTEND Internal Medicine